=== PATIENT | male | born 1970 | race Caucasian/White ===

== ENCOUNTER 2017-12-08 21:25 | Emergency (ER) | payer MEDICARE ==
[2017-12-08] MEDS ORDERED: Rocephin 1000 MG INJ ONE (22:20)
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
[2017-12-08] MEDS ORDERED: BACIGUENT PACKET ONE (22:26)
[2017-12-08 22:42] VITALS: BP 159/111
[2017-12-08] MEDS ORDERED: Rocephin 1000 MG INJ IM ONE (22:49)
[2017-12-09] MEDS ORDERED: BACIGUENT PACKET TP ONE (06:27)
== END 2017-12-08 22:44 | disposition home or self-care (01) ==
LOC: ED 21:25
DX: S91.115A Laceration without foreign body of left lesser toe(s) without damage to nail, initial encounter (principal); W26.8XXA Contact with other sharp object(s), not elsewhere classified, initial encounter; G82.50 Quadriplegia, unspecified; Z79.899 Other long term (current) drug therapy
CPT/HCPCS: 96372; 99283; J0696; A9270-GY

== ENCOUNTER 2018-04-05 16:13 | Emergency (ER) | payer MEDICARE ==
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
[2018-04-05 16:23] VITALS: O2SAT 95
[2018-04-05] MEDS ORDERED: BACIGUENT PACKET TP ONE (16:27)
[2018-04-05] MEDS ORDERED: BACIGUENT PACKET ONE (16:44)
[2018-04-05 16:59] VITALS: BP 125/62; PULSE 76
== END 2018-04-05 16:59 | disposition home or self-care (01) ==
LOC: ED 16:13
DX: S91.011A Laceration without foreign body, right ankle, initial encounter (principal); W26.9XXA Contact with unspecified sharp object(s), initial encounter; Y93.9 Activity, unspecified; Y92.818 Other transport vehicle as the place of occurrence of the external cause; Z79.899 Other long term (current) drug therapy; G83.9 Paralytic syndrome, unspecified
CPT/HCPCS: 12005; 96365; 99283; A9270-GY; G0463

== ENCOUNTER 2018-06-24 23:12 | Emergency (ER) | payer MEDICARE ==
[2018-06-24] MEDS ORDERED: BACIGUENT PACKET ONE (23:37)
[2018-06-24] MEDS: BACIGUENT PACKET TP ONE (23:41)
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
[2018-06-25 00:50] VITALS: BP 172/98; PULSE 73; O2SAT 99
--- NOTE | 2018-06-25 09:03 | XRAY ---
Indication: Pain following injury. Comparison: None 3 nonweightbearing views of the left foot demonstrates diffuse soft tissue swelling/edema, marked osteopenia, moderate heel spurs, old 2nd/3rd metatarsal head fracture deformities, and moderate degenerative changes of the midfoot. No acute fracture, dislocation, or suspicious bony lesions.
== END 2018-06-25 00:51 | disposition home or self-care (01) ==
LOC: ED 23:12
DX: S91.115A Laceration without foreign body of left lesser toe(s) without damage to nail, initial encounter (principal); S91.205A Unspecified open wound of left lesser toe(s) with damage to nail, initial encounter; W22.8XXA Striking against or struck by other objects, initial encounter; G83.9 Paralytic syndrome, unspecified; Z79.899 Other long term (current) drug therapy
CPT/HCPCS: 73630; 99284; A9270-GY

== ENCOUNTER 2020-09-06 19:24 | Emergency (ER) | payer MEDICARE ==
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
[2020-09-06 21:27] VITALS: BP 138/77
[2020-09-06 22:57] VITALS: PULSE 56; O2SAT 95
--- NOTE | 2020-09-07 08:27 | XRAY ---
Indication: 1st/2nd toe laceration. Comparison: April 15, 2020. 3 portable nonweightbearing views right foot demonstrates new 1st/2nd toe soft tissue swelling/laceration with overlying bandage material. Stable osteopenia, moderate tarsometatarsal degenerative changes, old distal forefoot fracture deformities, plantar heel spur, and navicular accessory ossicle. No other bony, articular, or soft tissue abnormalities.
[2020-09-07] MEDS ORDERED: Cyclobenzaprine 10 MG PO ONE (09:00)
[2020-09-07] MEDS ORDERED: SYNTHROID 25 MCG PO ONE (09:00)
[2020-09-07] MEDS ORDERED: LIORESAL 10 MG PO ONE (09:00)
== END 2020-09-06 23:11 | disposition home or self-care (01) ==
LOC: ED 19:24
DX: S91.119A Laceration without foreign body of unspecified toe without damage to nail, initial encounter (principal); S92.911A Unspecified fracture of right toe(s), initial encounter for closed fracture; W22.8XXA Striking against or struck by other objects, initial encounter; Z79.899 Other long term (current) drug therapy
CPT/HCPCS: 12001; 73630; 99284; A9270-GY

== ENCOUNTER 2021-04-30 16:37 | Emergency (ER) | payer MEDICARE ==
[2021-04-30] MEDS ORDERED: Rocephin 1000 MG INJ IM ONE (17:55)
[2021-04-30] MEDS ORDERED: Rocephin 1000 MG INJ ONE (17:59)
[2021-04-30] MEDS ORDERED: XYLOCAINE 1% HCL 20 ML MDV ONE (17:59)
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
[2021-04-30 18:33] VITALS: BP 155/70; PULSE 68; O2SAT 97
== END 2021-04-30 19:03 | disposition home or self-care (01) ==
LOC: ED 16:37
DX: S50.861A Insect bite (nonvenomous) of right forearm, initial encounter (principal); L08.9 Local infection of the skin and subcutaneous tissue, unspecified; W57.XXXA Bitten or stung by nonvenomous insect and other nonvenomous arthropods, initial encounter
CPT/HCPCS: 96372; 99283; J0696

== ENCOUNTER 2022-11-17 17:54 | Emergency (ER) | payer MEDICARE ==
[2022-11-17] MEDS ORDERED: Zofran 4 MG/2 ML VIAL IV ONE (18:56)
[2022-11-17] MEDS ORDERED: Sodium Chloride 0.9% 1000 ML 1,000 ML IV STA ×2 (18:56→21:03)
[2022-11-17 19:11] LABS: Absolute Neutrophil Ct (ANC) 12.24 x10^3/uL (1.4-6.9); BASOPHIL % 0.1 % (0.0-0.4); Basophil (Absolute #) 0.01 x10^3/uL (0-0.4); Eosinophil % 0.1 % (0.00-5.0); Eosinophil (Absolute #) 0.01 x10^3/uL (0-0.5); Hematocrit 40.8 % (42-50); Hemoglobin 12.7 g/dL (12.5-18.0); IMMATURE GRAN # 0.04 x10^3u/L (0.00-0.03); IMMATURE GRAN % 0.3 % (0.00-0.4); Lymphocyte (Absolute #) 0.92 x10^3/uL (1.0-4.6); Lymphocytes % 6.7 % (24.0-44.0); Mean Cell Volume 93.8 fL (78-100); Mean Corpuscular Hemoglobin 29.2 pg (26-32); Mean Corpuscular Hgb Concent. 31.1 g/dL (32-36); Mean Platelet Volume 10.7 fL (7.5-11.0); Monocyte (Absolute #) 0.47 x10^3/uL (0.0-1.3); Monocytes % 3.4 % (0.0-12.0); Neutrophil % 89.4 % (36.0-66.0); Platelet Count 238 x10^3/uL (150-450); Red Blood Count 4.35 x10^6/uL (4.1-5.6); Red Cell Distribution Width 13.6 % (11.5-14.0); White Blood Count 13.7 x10^3/uL (4.0-10.5)
[2022-11-17 19:25] LABS: ALBUMIN 3.6 g/dL (3.5-5.0); ALKALINE PHOSPHATASE 87 U/L (38-126); AMYLASE 67 U/L (30-110); ANION GAP 14.5 MEQ/L (5-15); BLOOD UREA NITROGEN 21 mg/dL (9-20); CHLORIDE 103 mmol/L (98-107); Calcium 8.4 mg/dL (8.4-10.2); Carbon Dioxide 27 mmol/L (22-30); Creatinine 1 0.59 mg/dL (0.66-1.25); EST GLOMERULAR FILTRATION RATE > 60.0 ML/MIN; Glucose 172 mg/dL (74-106); LIPASE 37 U/L (23-300); Potassium 3.5 mmol/L (3.5-5.1); SGOT/AST 23 U/L (17-59); SGPT/ALT 28 U/L (0-50); SODIUM 141 mmol/L (137-145); Total Protein 7.5 g/dL (6.3-8.2)
[2022-11-17] MEDS ORDERED: Zofran 4 MG/2 ML VIAL ONE (19:35)
[2022-11-17] MEDS ORDERED: Sodium Chloride 0.9% 1000 ML 1,000 ML ONE ×2 (19:36→21:14)
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
--- NOTE | 2022-11-17 21:01 | XRAY ---
CLINICAL HISTORY:Vomiting and nausea. COMPARISON:Prior CT dated 09/01/2013. TECHNIQUES:CT scan of the abdomen and pelvis was performed without IV contrast. No oral contrast. Coronal and sagittal reconstructive images were also obtained. CTDI 18.53 mGy, DLP 1013.49 mGycm; FINDINGS: Scan through the lower chest reveals partial atelectasis in left lung base and a 3.5 mm nodule in the right lung base. Abdomen. Hepatomegaly, measuring 19 cm at the largest craniocaudal span in the right lobe. No focal or diffuse parenchymal abnormality. The portal vein, intrahepatic biliary radicals and the bile ducts are normal. The gallbladder is distended and shows calcified stone measuring 1.3 cm. There is no evidence of wall thickening/ pericholecystic collection. The spleen, pancreas, and adrenal glands are unremarkable. The kidneys are normal in size and shape. No calculi or hydronephrosis. The stomach, the small bowel loops are markedly air-distended And dilated. The maximum caliber of the small bowel loops is up to 4.5-5 cm. The distal ileal loops show normal caliber with a transition point between the dilated small bowel loops difficult to ascertain. The large bowel loops are also filled with air and fecal matter which are normal caliber. No evidence of free air. There is no evidence of significant enlargement of the mesenteric or retroperitoneal lymph nodes. Small amount of free fluid at the perisplenic area. Pelvis. The urinary bladder shows urinary catheter. Reproductive organs unremarkable. therosclerotic calcification of the aorta and major abdominal arteries seen. No evidence of pelvic lymphadenopathy. No definite bony abnormalities could be depicted. Degenerative changes in the visualized spine, with marginal osteophytes. IMPRESSION: Acute or subacute small bowel obstruction with transition point between the proximal and distal ileal loops. Normal ileocecal junction. No appendicitis. Air and fecal matter filled large bowel loops with no large bowel dilatation. Pneumatosis intestinalis. Small amount of free fluid at left upper quadrant. Hepatomegaly. Left partial atelectasis and right lung nodule. Further evaluation with chest CT recommended. Prior CT dated 09/01/2013 did not show bowel obstruction. Spoke with Chrissy at 7:42 PM PAPER SALES REPRESENTATIVE, 11/17/2022 and results were communicated about the significant findings. Electronically Signed by: Esther Lee MD. ( 11/17/2022 19:53:02 [facility])
[2022-11-17] MEDS ORDERED: Reglan 10 MG/2 ML IV ONE (21:02)
[2022-11-17] MEDS ORDERED: LEVOFLOXACIN 750MG/150ML D5W 750 MG/150 ML BAG IV STA (21:13)
[2022-11-17] MEDS ORDERED: FLAGYL 500 MG IVPB 500 MG/100 ML BAG IV STA (21:13)
[2022-11-17] MEDS ORDERED: Reglan 10 MG/2 ML ONE (21:14)
[2022-11-17] MEDS ORDERED: FLAGYL 500 MG IVPB 500 MG/100 ML BAG IV ONE (21:26)
[2022-11-17] MEDS ORDERED: LEVOFLOXACIN 750MG/150ML D5W 750 MG/150 ML BAG IV ONE (21:27)
[2022-11-17 21:48] LABS: Appearance Turbid (Clear); Bacteria Many /HPF (None Seen); Bilirubin Negative (Negative); Blood Negative (Negative); Epithelial Cells None Seen /HPF (None Seen); Glucose, Urine Negative (Negative); Ketones Negative (Negative); Leukocyte Esterase Large (Negative); Nitrite Positive (Negative); Ph >=9.0 (4.6-8.0); Protein,Urine Dip 100 (Negative); Specific Gravity 1.025 (1.005-1.030); WBC 21-50 /HPF (0-5)
[2022-11-17 21:49] LABS: ADD URINE CULTURE? YES (NO); Hyaline Casts 26-50 /LPF (0-2)
[2022-11-18] MEDS ORDERED: Zofran 4 MG/2 ML VIAL IV ONE (02:07)
[2022-11-18] MEDS ORDERED: Zofran 4 MG/2 ML VIAL ONE (02:09)
[2022-11-18] MEDS ORDERED: SODIUM CHLORIDE 0.9% IV ONE (02:32)
[2022-11-18] MEDS ORDERED: THORAZINE IV ONE (02:32)
[2022-11-18] MEDS ORDERED: BENADRYL 50 MG/ML IV ONE (02:35)
[2022-11-18] MEDS ORDERED: THORAZINE 50 MG ONE (02:58)
[2022-11-18] MEDS ORDERED: Sodium Chloride 0.9% 100 ML ONE (02:58)
[2022-11-18] MEDS ORDERED: BENADRYL 50 MG/ML ONE (02:58)
[2022-11-18 03:19] VITALS: BP 118/70
[2022-11-18 04:47] VITALS: PULSE 71; O2SAT 97
== END 2022-11-18 05:00 | disposition short-term general hospital (02) ==
LOC: ED 17:54
DX: K56.609 Unspecified intestinal obstruction, unspecified as to partial versus complete obstruction (principal); N39.0 Urinary tract infection, site not specified; R11.2 Nausea with vomiting, unspecified; R10.9 Unspecified abdominal pain; R53.1 Weakness; G82.20 Paraplegia, unspecified; T14.8XXS Other injury of unspecified body region, sequela; V89.2XXS Person injured in unspecified motor-vehicle accident, traffic, sequela; I10 Essential (primary) hypertension; Z79.899 Other long term (current) drug therapy; Z28.310 Unvaccinated for COVID-19; Z72.0 Tobacco use
CPT/HCPCS: 36000; 36415; 74176; 80053; 81001; 82150; 83605; 83690; 84484; 85025; 87086; 96360; 96365; 96367; 96374; 96375; 96376; 99285; J1200; J1956; J2405; J3230

== ENCOUNTER 2024-04-23 04:13 | Observation (INO) | payer MEDICARE ==
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
[2024-04-23 05:47] LABS: Absolute Neutrophil Ct (ANC) 6.15 x10^3/uL (1.78-5.38); BASOPHIL % 0.6 % (0.2-1.2); Basophil (Absolute #) 0.06 x10^3/uL (0.01-0.08); Eosinophil % 4.6 % (0.8-7.0); Eosinophil (Absolute #) 0.45 x10^3/uL (0.04-0.54); Hemoglobin 14.6 g/dL (13.7-17.5); IMMATURE GRAN # 0.03 x10^3u/L (0.001-0.031); IMMATURE GRAN % 0.3 % (0.001-0.429); Lymphocyte (Absolute #) 2.52 x10^3/uL (1.32-3.57); Lymphocytes % 25.5 % (21.8-53.1); Mean Cell Volume 86.5 fL (79.0-92.2); Mean Corpuscular Hemoglobin 27.4 pg (25.7-32.2); Mean Corpuscular Hgb Concent. 31.7 g/dL (32.3-36.5); Mean Platelet Volume 10.6 fL (9.4-12.4); Monocyte (Absolute #) 0.66 x10^3/uL (0.30-0.82); Monocytes % 6.7 % (5.3-12.2); Neutrophil % 62.3 % (34.0-67.9); Platelet Count 270 x10^3/uL (163-337); Red Blood Count 5.32 x10^6/uL (4.63-6.08); Red Cell Distribution Width 14.5 % (11.6-14.4); White Blood Count 9.9 x10^3/uL (4.23-9.07)
[2024-04-23 05:59] LABS: ALBUMIN 4.4 g/dL (3.5-5.0); BILIRUBIN,TOTAL 0.7 mg/dL (0.2-1.3); Calcium 9.5 mg/dL (8.4-10.2); Creatinine 1 1.06 mg/dL (0.66-1.25); EST GLOMERULAR FILTRATION RATE 82.9 ML/MIN; Total Protein 8.4 g/dL (6.3-8.2)
[2024-04-23 06:01] LABS: Potassium 4.2 mmol/L (3.5-5.1)
[2024-04-23 06:21] LABS: Appearance Turbid (Clear); Bacteria Many /HPF (None Seen); Bilirubin Negative (Negative); Blood Small (Negative); Epithelial Cells Rare /HPF (None Seen); Glucose, Urine Negative (Negative); Ketones Negative (Negative); Leukocyte Esterase Large (Negative); Nitrite Positive (Negative); Ph 7.5 (4.6-8.0); Protein,Urine Dip 100 (Negative); Specific Gravity 1.015 (1.005-1.030); Urobilinogen 0.2 mg/dL (0.2); WBC >100 /HPF (0-5)
[2024-04-23] MEDS ORDERED: Levofloxacin 500MG/100ML D5W 500 MG/100 ML BAG IV ONE (07:17)
[2024-04-23] MEDS ORDERED: Sodium Chloride 0.9% 1000 ML 1,000 ML ONE (07:17)
[2024-04-23] MEDS: Sodium Chloride 0.9% 1000 ML 1,000 ML IV STA (07:18)
[2024-04-23] MEDS: Levofloxacin 500MG/100ML D5W 500 MG/100 ML BAG IV STA (08:14)
[2024-04-23 08:20] LABS: INFLUENZA A NEGATIVE (NEGATIVE); INFLUENZA B NEGATIVE (NEGATIVE); RESPIRATORY SYNCTIAL VIRUS NEGATIVE (NEGATIVE); SARS-CoV-2 Xpert Express NEGATIVE (NEGATIVE)
[2024-04-23 09:08] VITALS: RESP 18
[2024-04-23] MEDS: Levofloxacin 250MG Tablet PO SCH (10:53)
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
[2024-04-23] MEDS ORDERED: TYLENOL 325 MG PO PRN (11:50)
[2024-04-23] MEDS ORDERED: PROVENTIL 2.5 MG/3 ML NEB IH PRN (11:50)
[2024-04-23] MEDS ORDERED: Cyclobenzaprine 10 MG PO PRN (11:50)
[2024-04-23] MEDS ORDERED: Valium 5 MG PO PRN (11:50)
[2024-04-23] MEDS: Acidophilus TABLET PO SCH (13:19)
[2024-04-23] MEDS: Protonix 40MG Tablet PO SCH (13:19)
[2024-04-23] MEDS: SYNTHROID 25 MCG PO SCH (13:20)
[2024-04-23] MEDS: Miralax Powder 17GM PACKET PO SCH (13:20)
[2024-04-23] MEDS: Klor Con PO SCH (13:20)
[2024-04-23] MEDS: SENOKOT 8.6 MG PO SCH (13:20)
[2024-04-23] MEDS: ZOLOFT 50 MG TABLET PO SCH (13:20)
[2024-04-23] MEDS: FOLATE 1 MG PO SCH (13:20)
[2024-04-23] MEDS: Zinc Gluconate 50 MG PO SCH (14:00)
[2024-04-23] MEDS: Mirapex 0.5 MG Tablet PO SCH (14:00)
[2024-04-23] MEDS ORDERED: NON-FORMULARY ITEM (Pramipexole Di-Hcl [Pramipexole Dihydrochloride] 1 MG Tablet) PO SCH (15:00)
[2024-04-23] MEDS: LIORESAL 10 MG PO SCH (16:19)
[2024-04-23 16:58] VITALS: BP 119/67; PULSE 72; TEMP 98.6; O2SAT 94
[2024-04-23] MEDS ORDERED: ACIDOPHILUS PO SCH (22:00)
[2024-04-23] MEDS ORDERED: Pepcid 20 MG PO SCH (22:00)
[2024-04-23] MEDS ORDERED: BULGARICUS PO SCH (22:00)
[2024-04-23] MEDS ORDERED: NON-FORMULARY ITEM (Baclofen [Baclofen] 20 MG Tablet) PO SCH ×2 (22:00)
[2024-04-23] MEDS ORDERED: LIORESAL 10 MG PO SCH (22:00)
[2024-04-24] MEDS ORDERED: Lopressor 25MG Tab PO SCH (10:00)
[2024-04-24] MEDS ORDERED: CLARITIN 10 MG PO SCH (10:00)
[2024-04-24] MEDS ORDERED: ZINC AMINO ACID CHELATE PO SCH (10:00)
[2024-04-24] MEDS ORDERED: [UNRECOGNIZED DRUG - REMARK] PO SCH (10:00)
[2024-04-24] MEDS ORDERED: NYSTOP POWDER 15 GM TOP SCH (10:00)
[2024-04-24] MEDS ORDERED: SENNOSIDES 8.6 MG PO SCH (10:00)
[2024-04-24] MEDS ORDERED: NON-FORMULARY ITEM (Sertraline Hcl [Sertraline Hcl] 100 MG Tablet) PO SCH (10:00)
== END 2024-04-23 17:25 ==
LOC: ED 04:13 → MED SURG 08:25
PROVIDERS: ADMIT Internal Medicine; ATTEND Internal Medicine
DX: N39.0 Urinary tract infection, site not specified (principal); L89.153 Pressure ulcer of sacral region, stage 3; I10 Essential (primary) hypertension; Z86.73 Personal history of transient ischemic attack (TIA), and cerebral infarction without residual deficits; R53.1 Weakness; G82.20 Paraplegia, unspecified; F17.200 Nicotine dependence, unspecified, uncomplicated; Z93.3 Colostomy status; Z79.899 Other long term (current) drug therapy
CPT/HCPCS: 0241U; 36000; 36415; 51702; 80053; 81001; 83605; 85025; 87040; 87086; 93005; 93041; 94760; 96360; 93268; 99284; J1956; Q3014; A9270-GY; G0378

== ENCOUNTER 2024-05-09 18:49 | Emergency (ER) | payer MEDICARE ==
[2024-05-09 18:56] VITALS: TEMP 98.4
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
[2024-05-09] MEDS ORDERED: Sodium Chloride 0.9% 500 ML 500 ML IV ONE (20:09)
[2024-05-09] MEDS: Sodium Chloride 0.9% 500 ML 500 ML IV ONE (20:11)
[2024-05-09] MEDS ORDERED: VENELEX OINTMENT TP SCH ×4 (20:32→22:00)
[2024-05-09 21:22] VITALS: O2SAT 94
[2024-05-09 23:33] VITALS: BP 88/57; PULSE 56; RESP 18
[2024-05-10] MEDS ORDERED: Santyl OINTMENT TOP SCH (10:00)
== END 2024-05-09 23:30 | disposition home or self-care (01) ==
LOC: ED 18:49
DX: L89.152 Pressure ulcer of sacral region, stage 2 (principal); G82.20 Paraplegia, unspecified; S14.105S Unspecified injury at C5 level of cervical spinal cord, sequela; I10 Essential (primary) hypertension; Z79.899 Other long term (current) drug therapy; Z72.0 Tobacco use
CPT/HCPCS: 99283; A9270-GY

== ENCOUNTER 2024-08-14 03:01 | Inpatient (IN) | payer MEDICARE ==
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
[2024-08-14] MEDS ORDERED: DUONEB 0.5-3 MG/3 ml Neb IH ONE ×2 (04:28→07:07)
[2024-08-14] MEDS: DUONEB 0.5-3 MG/3 ml Neb IH ONE ×2 (04:32→07:08)
[2024-08-14] MEDS: solu-MEDROL 125 MG, Sterile H2O 10 ml 2 ML IV ONE (04:38)
[2024-08-14 04:55] LABS: Absolute Neutrophil Ct (ANC) 3.37 x10^3/uL (1.78-5.38); BASOPHIL % 0.3 % (0.2-1.2); Basophil (Absolute #) 0.02 x10^3/uL (0.01-0.08); Eosinophil % 1.5 % (0.8-7.0); Hematocrit 39.1 % (40.1-51.0); Hemoglobin 12.8 g/dL (13.7-17.5); IMMATURE GRAN # 0.02 x10^3u/L (0.001-0.031); IMMATURE GRAN % 0.3 % (0.001-0.429); Lymphocyte (Absolute #) 2.65 x10^3/uL (1.32-3.57); Lymphocytes % 39.7 % (21.8-53.1); Mean Cell Volume 86.3 fL (79.0-92.2); Mean Corpuscular Hemoglobin 28.3 pg (25.7-32.2); Mean Corpuscular Hgb Concent. 32.7 g/dL (32.3-36.5); Monocyte (Absolute #) 0.52 x10^3/uL (0.30-0.82); Monocytes % 7.8 % (5.3-12.2); Neutrophil % 50.4 % (34.0-67.9); Platelet Count 222 x10^3/uL (163-337); Red Blood Count 4.53 x10^6/uL (4.63-6.08); Red Cell Distribution Width 14.1 % (11.6-14.4); White Blood Count 6.7 x10^3/uL (4.23-9.07)
[2024-08-14 05:17] LABS: Appearance Clear (Clear); Bilirubin Negative (Negative); Blood Small (Negative); Glucose, Urine Negative (Negative); Ketones Negative (Negative); Leukocyte Esterase Large (Negative); Nitrite Negative (Negative); Ph 6.5 (4.6-8.0); Protein,Urine Dip Negative (Negative); Urobilinogen 0.2 mg/dL (0.2)
[2024-08-14 05:17] LABS: ALBUMIN 4.2 g/dL (3.5-5.0); ANION GAP 13.1 MEQ/L (5-15); BILIRUBIN,TOTAL 0.6 mg/dL (0.2-1.3); Calcium 8.7 mg/dL (8.4-10.2); Creatinine 1 0.8 mg/dL (0.66-1.25); EST GLOMERULAR FILTRATION RATE 103.9 ML/MIN; Potassium 3.7 mmol/L (3.5-5.1); Total Protein 7.8 g/dL (6.3-8.2)
[2024-08-14 05:18] LABS: Bacteria Few /HPF (None Seen); Epithelial Cells Few /HPF (None Seen); Hyaline Casts None Seen /LPF (0-2)
[2024-08-14 05:33] LABS: INFLUENZA A NEGATIVE (NEGATIVE); INFLUENZA B NEGATIVE (NEGATIVE); RESPIRATORY SYNCTIAL VIRUS NEGATIVE (NEGATIVE); SARS-CoV-2 Xpert Express NEGATIVE (NEGATIVE)
[2024-08-14] MEDS ORDERED: Cipro 500 MG ONE (05:55)
[2024-08-14] MEDS: Cipro 500 MG PO STA (05:57)
--- NOTE | 2024-08-14 06:34 | XRAY ---
CLINICAL HISTORY: sob COMPARISON: CT abdomen and pelvis dated 11/17/2022 was reviewed for covered lung bases. TECHNIQUE: An X-ray image of the chest is obtained using an 1 AP projection. FINDINGS: Rotated projection. Pulmonary Parenchyma: Mild prominence of perihilar broncho-vascular markings. There is no evidence of consolidation, collapse, or focal opacities. No pulmonary nodules are identified. There is no evidence of pleural effusion on the right side. Blunting of the left costophrenic angle may represent pleural thickening or a small pleural effusion. Heart and Mediastinum: Enlarged heart. No mediastinal widening or masses. No hilar or mediastinal lymphadenopathy. Bony Thorax: The bony thorax appears intact without fractures. Degenerative changes in the visualized spine. Soft Tissues: Soft tissues overlying the chest wall are unremarkable. A metallic spinal fixator is seen, projected over the cervical spine. Tubing artifacts noted. IMPRESSION: 1. Enlarged heart. 2. Mild prominence of perihilar broncho-vascular markings probably due to pulmonary vascular congestion. 3. Blunting of the left costophrenic angle may represent pleural thickening or a small pleural effusion. 4. Calcified granuloma in the right mid zone(stable). Electronically Signed by: Esther Lee MD. (08/14/2024 06:30:07 EST)
[2024-08-14 06:35] LABS: A-aADO2 174; ABG HEMOGLOBIN 12.8; ABG POTASSIUM 3.8 (3.5-5.1); ABG SITE LEFT RADIAL; ALLEN TEST OK? YES; ARTERIAL BLD GAS O2 SATURATION 97.9 % (95-100); ARTERIAL BLOOD GAS BASE EXCESS 4.5 (-2.0-2.0); ARTERIAL BLOOD GAS FIO2 44 %; ARTERIAL BLOOD GAS PCO2 43 mmHg (35-45); ARTERIAL BLOOD GAS PO2 86 mmHg (75-100); ARTERIAL BLOOD GAS pH 7.44 (7.35-7.45); CARBOXYHEMOGLOBIN 0.9 % THgb (0.0-6.9); HCO3- 29.2 (22-28); HGB O2 SAT 96.4 g/dF (94-100); Methhemoglobin 0.6 % (1.4-1.5); paO2 pAO1 0.33
--- NOTE | 2024-08-14 09:16 | PCM.HP ---
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 (40.1-51.0) % MCV (79.0-92.2) fL MCH (25.7-32.2) pg MCHC (32.3-36.5) g/dL RDW (11.6-14.4) % Plt Count (163-337) x10^3/uL MPV (9.4-12.4) fL Gran % (34.0-67.9) % Immature Gran % (Auto) (0.001-0.429) % Nucleat RBC Rel Count (0.00-0.2) % Eos # (Auto) (0.04-0.54) x10^3/uL Immature Gran # (Auto) (0.001-0.031) x10^3u/L Absolute Lymphs (auto) (1.32-3.57) x10^3/uL Absolute Monos (auto) (0.30-0.82) x10^3/uL Absolute Nucleated RBC (0.00-0.012) x10^3u/L Lymphocytes % (21.8-53.1) % Monocytes % (5.3-12.2) % Eosinophils % (0.8-7.0) % Basophils % (0.2-1.2) % Absolute Granulocytes (1.78-5.38) x10^3/uL Basophils # (0.01-0.08) x10^3/uL Puncture Site LEFT RADIAL pCO2 43 (35-45) mmHg pO2 86 (75-100) mmHg Base Excess 4.5 H (-2.0-2.0) O2 Saturation 96.4 (94-100) g/dF ABG pH 7.44 (7.35-7.45) ABG HCO3 29.2 H* (22-28) ABG O2 Sat (Measured) 97.9 (95-100) % Stephan Test YES A-a Gradient 174 a/A Ratio 0.33 Hemoglobin 12.8 Carboxyhemoglobin 0.9 (0.0-6.9) % THgb Methemoglobin 0.6 L (1.4-1.5) % Temperature 37.0 C POC O2 Flow Rate 44 % Sodium (135-145) mmol/L Potassium 3.8 (3.5-5.1) mmol/L Chloride (98-107) mmol/L Carbon Dioxide (22-30) mmol/L Anion Gap (5-15) MEQ/L BUN (9-20) mg/dL Creatinine (0.66-1.25) mg/dL Estimated GFR ML/MIN Glucose (74-106) mg/dL Calcium (8.4-10.2) mg/dL Total Bilirubin (0.2-1.3) mg/dL AST (17-59) U/L ALT (0-50) U/L Alkaline Phosphatase (38-126) U/L Troponin I 0.027 0.015 (0.000-0.033) ng/mL NT-Pro-B Natriuret Pep (<300) pg/mL Serum Total Protein (6.3-8.2) g/dL Albumin (3.5-5.0) g/dL Procalcitonin (0.030-0.080) ng/mL Urine Color (Yellow) Urine Appearance (Clear) Urine pH (4.6-8.0) Ur Specific Bulan (1.005-1.030) Urine Protein (Negative) Urine Glucose (UA) (Negative) mg/dL Urine Ketones (Negative) Urine Blood (Negative) Urine Nitrite (Negative) Urine Bilirubin (Negative) Urine Urobilinogen (0.2) mg/dL Ur Leukocyte Esterase (Negative) U Hyaline Cast (Auto) (0-2) /LPF Urine Microscopic RBC (0-5) /HPF Urine Microscopic WBC (0-5) /HPF Ur Epithelial Cells (None Seen) /HPF Urine Bacteria (None Seen) /HPF Urine Culture Reflexed (NO) Influenza Type A Ag (NEGATIVE) Influenza Type B Ag (NEGATIVE) RSV (PCR) (NEGATIVE) SARS-CoV-2 (PCR) (NEGATIVE) - Radiology Impressions Radiology Exams & Impressions: Radiology Procedures Category Date Time Status CHEST 1 VIEW (PORTABLE) Stat Exams 08/14/24 04:19 Completed CHEST WITH CONTRAST [CT] Routine Exams 08/14/24 09:49 Completed ECHO W/2D AND DOPPLER [US] Routine Exams 08/14/24 09:54 Taken - Other Procedures and Tests Respiratory Therapy 08/14/24 10:58 Oxygen NASAL CANNULA 2 lpm Respiratory Therapy Assessment DAILY 08/14/24 19:00 Flutter Therapy TID WILLIAM Encounter - WILLIAM Encounter Attestation WILLIAM Encounter Attestation: "AnupeenIAN Gordillo andjerryiscussed pertinent aspects of their care with Beronica Cosme agree with the history, physical exam (any modifications based on my personal exam will be noted below), assessment, and plan as outlined in original note. Please see immediately below for my summary of findings and additional assessment and plan along with any meaningful corrections/explanations to the Subjective/Objective portions of the WILLIAM note will be noted." My portion of the encounter took place via telemedicine. -Acute respiratory failure with hypoxia likely due to mucus plugging with a possible component of CHF given cardiomegaly, meth use and elevated BNP. Await echo. Given lasix 40 mg IV x 1. Continue oxygen support, nebs. Avoid suctioning through the stoma as patient has a follow up with ENT next month with plans for closing. I do not think patient has a UTI with no elevation of WBC, absence of bladder spasms or leakage around the SP catheter, clean appearing urine in the cath. Will monitor off of antibiotics for now.
[2024-08-14] MEDS ORDERED: Zofran 4 MG/2 ML VIAL IV PRN (10:20)
[2024-08-14] MEDS ORDERED: TYLENOL 325 MG PO PRN (10:20)
[2024-08-14] MEDS: Nicoderm CQ 21 MG TOP SCH (12:12)
[2024-08-14] MEDS: solu-MEDROL 40 MG, Sterile H2O 10 ml 1 ML IV SCH (12:13)
[2024-08-14] MEDS: Lasix 40 MG/4 ML IV ONE (12:13)
--- NOTE | 2024-08-14 12:53 | XRAY ---
Indication: Dyspnea. Multiple contiguous axial images obtained through the chest using 100 cc Isovue 370 contrast and PE protocol. Comparison: None Good opacification pulmonary arteries to include the lobar and segmental branches. No pulmonary embolus. Heart borderline enlarged. Aorta is normal in course and caliber without aneurysm/dissection. Small left hilar calcified node. No pathologic mediastinal/hilar lymphadenopathy. Lungs demonstrates medial and posterior segment left lower lobe atelectasis due to endobronchial narrowing. Right lung base demonstrates dependent atelectasis. Tiny peripheral right upper lobe calcified granuloma. No infiltrate or effusion. Bony thorax intact with mild degenerative changes throughout spine and old lateral left 7 rib fracture. Limited upper abdomen demonstrates fatty liver and 3 gallstones largest 6 mm. Impression: 1. Negative pulmonary embolus. 2. Posterior medial left lower lobe atelectasis due to endobronchial narrowing. Rule out endobronchial lesion versus mucous plugging. Right lung base dependent atelectasis. 3. Chronic findings including fatty liver, chronic bony findings, gallstones, and old granulomatous disease.
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
[2024-08-14] MEDS ORDERED: Cyclobenzaprine 10 MG PO PRN (14:06)
[2024-08-14] MEDS: LIORESAL 10 MG PO ONE (15:18)
[2024-08-14] MEDS: ENOXAPARIN SODIUM SQ SCH (15:46)
[2024-08-14] MEDS: DUONEB 0.5-3 MG/3 ml Neb IH PRN (16:38)
[2024-08-14] MEDS: Mucomyst 200 MG/ML IH SCH (17:18)
[2024-08-14] MEDS: NYSTOP 30 GM CREAM TP SCH (18:19)
[2024-08-14] MEDS: LIORESAL 10 MG PO SCH (21:29)
[2024-08-14] MEDS: Pepcid 20 MG PO SCH (21:29)
[2024-08-14] MEDS: ELIQUIS 2.5 MG TABLET PO SCH (21:29)
[2024-08-14] MEDS ORDERED: SENOKOT 8.6 MG ONE (21:37)
[2024-08-14] MEDS: SENOKOT 8.6 MG PO SCH (21:40)
[2024-08-14] MEDS ORDERED: NON-FORMULARY ITEM (Baclofen [Baclofen] 20 MG Tablet) PO SCH ×2 (22:00)
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
[2024-08-15 05:13] LABS: BASOPHIL % 0.1 % (0.2-1.2); Basophil (Absolute #) 0.01 x10^3/uL (0.01-0.08); Eosinophil % 0.2 % (0.8-7.0); Eosinophil (Absolute #) 0.02 x10^3/uL (0.04-0.54); Hematocrit 35.2 % (40.1-51.0); Hemoglobin 11.4 g/dL (13.7-17.5); IMMATURE GRAN # 0.06 x10^3u/L (0.001-0.031); IMMATURE GRAN % 0.7 % (0.001-0.429); Lymphocyte (Absolute #) 1.37 x10^3/uL (1.32-3.57); Lymphocytes % 16.5 % (21.8-53.1); Mean Cell Volume 86.1 fL (79.0-92.2); Mean Corpuscular Hemoglobin 27.9 pg (25.7-32.2); Mean Corpuscular Hgb Concent. 32.4 g/dL (32.3-36.5); Mean Platelet Volume 10.4 fL (9.4-12.4); Monocyte (Absolute #) 0.42 x10^3/uL (0.30-0.82); Monocytes % 5.1 % (5.3-12.2); Neutrophil % 77.4 % (34.0-67.9); Platelet Count 259 x10^3/uL (163-337); Red Blood Count 4.09 x10^6/uL (4.63-6.08); Red Cell Distribution Width 14.2 % (11.6-14.4); White Blood Count 8.3 x10^3/uL (4.23-9.07)
[2024-08-15 05:37] LABS: ALBUMIN 3.7 g/dL (3.5-5.0); BILIRUBIN,TOTAL 0.4 mg/dL (0.2-1.3); Calcium 8.6 mg/dL (8.4-10.2); Creatinine 1 0.81 mg/dL (0.66-1.25); EST GLOMERULAR FILTRATION RATE 103.5 ML/MIN; Potassium 3.6 mmol/L (3.5-5.1)
[2024-08-15] MEDS: LIORESAL 10 MG PO SCH (08:20)
[2024-08-15] MEDS: Merrem 1 GM in Sodium Chloride 100ML MINI-BAG PLUS 100 ML IV SCH (08:25)
[2024-08-15] MEDS ORDERED: SENNOSIDES 8.6 MG PO SCH (10:00)
[2024-08-15] MEDS ORDERED: NON-FORMULARY ITEM (Esomeprazole Magnesium [Esomeprazole Magnesium] 40 MG Capsule.Dr) PO SCH (10:00)
[2024-08-15] MEDS ORDERED: ZINC AMINO ACID CHELATE PO SCH (10:00)
[2024-08-15] MEDS ORDERED: NON-FORMULARY ITEM (Pramipexole Di-Hcl [Pramipexole Dihydrochloride] 1 MG Tablet) PO SCH (10:00)
[2024-08-15] MEDS ORDERED: NON-FORMULARY ITEM (Sertraline Hcl [Sertraline Hcl] 100 MG Tablet) PO SCH (10:00)
[2024-08-15] MEDS ORDERED: [UNRECOGNIZED DRUG - REMARK] PO SCH (10:00)
[2024-08-15] MEDS: FOLATE 1 MG PO SCH (11:25)
[2024-08-15] MEDS: hydroDIURIL 25 MG PO SCH (11:25)
[2024-08-15] MEDS: ZOLOFT 50 MG TABLET PO SCH (11:25)
[2024-08-15] MEDS: Protonix 40MG Tablet PO SCH (11:26)
[2024-08-15] MEDS: Mirapex 0.5 MG Tablet PO SCH (11:26)
[2024-08-15] MEDS: Klor Con PO SCH (11:27)
[2024-08-15] MEDS: CLARITIN 10 MG PO SCH (11:27)
[2024-08-15] MEDS: SYNTHROID 25 MCG PO SCH (11:27)
[2024-08-15] MEDS: Cymbalta 30 MG Capsule PO SCH (11:27)
[2024-08-15] MEDS: Zinc Gluconate 50 MG PO SCH (11:28)
[2024-08-15] MEDS: Zestril 20 MG PO SCH (11:42)
[2024-08-15] MEDS: NYSTOP POWDER 15 GM TOP SCH (11:54)
[2024-08-16] MEDS: PHARMACY DOSING REQUEST MC ONE (01:20)
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
[2024-08-16 07:28] LABS: Absolute Neutrophil Ct (ANC) 3.65 x10^3/uL (1.78-5.38); BASOPHIL % 0.1 % (0.2-1.2); Basophil (Absolute #) 0.01 x10^3/uL (0.01-0.08); Eosinophil % 26.8 % (0.8-7.0); Eosinophil (Absolute #) 2.36 x10^3/uL (0.04-0.54); Hematocrit 33.8 % (40.1-51.0); Hemoglobin 11.1 g/dL (13.7-17.5); IMMATURE GRAN # 0.15 x10^3u/L (0.001-0.031); IMMATURE GRAN % 1.7 % (0.001-0.429); Lymphocyte (Absolute #) 1.91 x10^3/uL (1.32-3.57); Lymphocytes % 21.7 % (21.8-53.1); Mean Cell Volume 86.2 fL (79.0-92.2); Mean Corpuscular Hemoglobin 28.3 pg (25.7-32.2); Mean Corpuscular Hgb Concent. 32.8 g/dL (32.3-36.5); Mean Platelet Volume 10.3 fL (9.4-12.4); Monocyte (Absolute #) 0.72 x10^3/uL (0.30-0.82); Monocytes % 8.2 % (5.3-12.2); Neutrophil % 41.5 % (34.0-67.9); Platelet Count 246 x10^3/uL (163-337); Red Blood Count 3.92 x10^6/uL (4.63-6.08); Red Cell Distribution Width 14.1 % (11.6-14.4); White Blood Count 8.8 x10^3/uL (4.23-9.07)
[2024-08-16 07:42] LABS: ALBUMIN 3.6 g/dL (3.5-5.0); ANION GAP 9.1 MEQ/L (5-15); BILIRUBIN,TOTAL 0.4 mg/dL (0.2-1.3); Calcium 8.9 mg/dL (8.4-10.2); Creatinine 1 0.74 mg/dL (0.66-1.25); EST GLOMERULAR FILTRATION RATE 106.3 ML/MIN; Potassium 3.8 mmol/L (3.5-5.1); Total Protein 6.8 g/dL (6.3-8.2)
[2024-08-16] MEDS: PROVENTIL 2.5 MG/3 ML NEB IH PRN (07:58)
--- NOTE | 2024-08-16 08:29 | XRAY ---
Indication: Short of breath. Comparison: August 14, 2024 Portable chest again demonstrates left lung volume loss with moderate left base infiltrate/atelectasis/effusion grossly unchanged. Remaining heart and right lung unremarkable. No new cardiopulmonary abnormalities.
[2024-08-16] MEDS: Lasix 40 MG/4 ML IV SCH (09:24)
[2024-08-16 10:25] LABS: Slide Review 1 YES
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
[2024-08-17 08:00] LABS: Absolute Neutrophil Ct (ANC) 6.18 x10^3/uL (1.78-5.38); BASOPHIL % 0.4 % (0.2-1.2); Basophil (Absolute #) 0.04 x10^3/uL (0.01-0.08); Eosinophil % 0.6 % (0.8-7.0); Eosinophil (Absolute #) 0.06 x10^3/uL (0.04-0.54); Hematocrit 37.5 % (40.1-51.0); Hemoglobin 11.4 g/dL (13.7-17.5); IMMATURE GRAN # 0.18 x10^3u/L (0.001-0.031); IMMATURE GRAN % 1.9 % (0.001-0.429); Lymphocyte (Absolute #) 2.34 x10^3/uL (1.32-3.57); Lymphocytes % 24.5 % (21.8-53.1); Mean Cell Volume 92.1 fL (79.0-92.2); Mean Corpuscular Hgb Concent. 30.4 g/dL (32.3-36.5); Monocyte (Absolute #) 0.75 x10^3/uL (0.30-0.82); Monocytes % 7.9 % (5.3-12.2); Neutrophil % 64.7 % (34.0-67.9); Platelet Count 211 x10^3/uL (163-337); Red Blood Count 4.07 x10^6/uL (4.63-6.08); White Blood Count 9.6 x10^3/uL (4.23-9.07)
[2024-08-17 09:36] LABS: ALBUMIN 3.6 g/dL (3.5-5.0); BILIRUBIN,TOTAL 0.4 mg/dL (0.2-1.3); Calcium 8.7 mg/dL (8.4-10.2); Creatinine 1 0.75 mg/dL (0.66-1.25); EST GLOMERULAR FILTRATION RATE 105.9 ML/MIN; Potassium 3.4 mmol/L (3.5-5.1); Total Protein 6.8 g/dL (6.3-8.2)
[2024-08-17 09:37] LABS: ANION GAP 9.4 MEQ/L (5-15)
[2024-08-17] MEDS: Klor Con PO ONE (10:08)
[2024-08-17] MEDS ORDERED: PHARMACY DOSING REQUIRED: VANCOMYCIN IV SCH (11:30)
[2024-08-17] MEDS ORDERED: Maxipime 2 GM** 2 G in Dextrose 5%/Water IV Soln. 100ML PLUS BAG 100 ML IV SCH (12:00)
[2024-08-17] MEDS: Maxipime 2 GM** 2 G in Dextrose 5%/Water IV Soln. 100ML PLUS BAG 100 ML IV SCH (12:32)
[2024-08-17] MEDS ORDERED: Sterile H2O 10 ml IJ ONE (14:20)
[2024-08-17] MEDS ORDERED: BENADRYL 50 MG/ML ONE (14:20)
[2024-08-17] MEDS ORDERED: solu-MEDROL ONE (14:20)
[2024-08-17] MEDS ORDERED: Pepcid 20 MG VIAL IV ONE (14:21)
[2024-08-17] MEDS ORDERED: Sodium Chloride 0.9% 500 ML 500 ML IV ONE (14:23)
[2024-08-17] MEDS: BENADRYL 50 MG/ML IV ONE (14:23)
[2024-08-17] MEDS: solu-MEDROL 20 MG, Sterile H2O 10 ml 1 ML IV STA (14:25)
[2024-08-17] MEDS: Sodium Chloride 0.9% 500 ML 500 ML IV ONE (14:34)
[2024-08-17] MEDS: Pepcid 20 MG VIAL IV ONE (14:34)
[2024-08-17] MEDS: VANCOMYCIN 1 GRAM/200 ML BAG 1 GM/200 ML PIGGYBACK IV SCH (17:04)
[2024-08-17] MEDS: PHARMACY DOSING REQUIRED: GENTAMICIN IV ONE (17:07)
[2024-08-17] MEDS: GENTAMICIN 80 MG/50 ML PREMIX*** 100 ML IV SCH (18:42)
[2024-08-17] MEDS: Klor Con PO SCH (21:25)
[2024-08-18] MEDS ORDERED: VANCOMYCIN 1 GRAM/200 ML BAG 1 GM/200 ML PIGGYBACK IV ONE (05:54)
[2024-08-18 06:34] LABS: Absolute Neutrophil Ct (ANC) 9.19 x10^3/uL (1.78-5.38); BASOPHIL % 0.2 % (0.2-1.2); Basophil (Absolute #) 0.03 x10^3/uL (0.01-0.08); Eosinophil % 0.5 % (0.8-7.0); Eosinophil (Absolute #) 0.07 x10^3/uL (0.04-0.54); Hematocrit 36.3 % (40.1-51.0); Hemoglobin 11.7 g/dL (13.7-17.5); IMMATURE GRAN # 0.37 x10^3u/L (0.001-0.031); IMMATURE GRAN % 2.8 % (0.001-0.429); Lymphocyte (Absolute #) 2.45 x10^3/uL (1.32-3.57); Lymphocytes % 18.7 % (21.8-53.1); Mean Cell Volume 86.4 fL (79.0-92.2); Mean Corpuscular Hemoglobin 27.9 pg (25.7-32.2); Mean Corpuscular Hgb Concent. 32.2 g/dL (32.3-36.5); Mean Platelet Volume 10.1 fL (9.4-12.4); Monocyte (Absolute #) 0.99 x10^3/uL (0.30-0.82); Monocytes % 7.6 % (5.3-12.2); Neutrophil % 70.2 % (34.0-67.9); Platelet Count 297 x10^3/uL (163-337); White Blood Count 13.1 x10^3/uL (4.23-9.07)
[2024-08-18 07:09] LABS: ALBUMIN 3.6 g/dL (3.5-5.0); ANION GAP 10.9 MEQ/L (5-15); BILIRUBIN,TOTAL 0.4 mg/dL (0.2-1.3); Calcium 9.3 mg/dL (8.4-10.2); Creatinine 1 0.77 mg/dL (0.66-1.25); EST GLOMERULAR FILTRATION RATE 105.1 ML/MIN; Total Protein 6.7 g/dL (6.3-8.2)
[2024-08-18 07:15] LABS: Potassium 4.4 mmol/L (3.5-5.1)
[2024-08-18] MEDS: Pepcid 20 MG VIAL IV SCH (10:13)
[2024-08-18] MEDS: TROUGH DRUG LEVELS IJ ONE ×2 (13:56→20:15)
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
[2024-08-18] MEDS: PEAK DRUG LEVELS IJ ONE (20:47)
[2024-08-19 05:29] LABS: Hematocrit 40.4 % (40.1-51.0); Mean Cell Volume 87.3 fL (79.0-92.2); Mean Corpuscular Hemoglobin 28.1 pg (25.7-32.2); Mean Corpuscular Hgb Concent. 32.2 g/dL (32.3-36.5); Mean Platelet Volume 10.4 fL (9.4-12.4); Platelet Count 356 x10^3/uL (163-337); Red Blood Count 4.63 x10^6/uL (4.63-6.08); Red Cell Distribution Width 14.4 % (11.6-14.4); White Blood Count 14.6 x10^3/uL (4.23-9.07)
[2024-08-19 06:14] LABS: BILIRUBIN,TOTAL 0.5 mg/dL (0.2-1.3); Calcium 9.2 mg/dL (8.4-10.2); Creatinine 1 0.73 mg/dL (0.66-1.25); EST GLOMERULAR FILTRATION RATE 106.8 ML/MIN; Potassium 4.3 mmol/L (3.5-5.1); Total Protein 7.3 g/dL (6.3-8.2)
[2024-08-19 06:33] LABS: INR 0.94 (0.8-3.0); PROTIME 10.3 SECONDS (9.4-12.5); PTT 28.5 SECONDS (25.1-36.5)
[2024-08-19 08:40] LABS: Lymphocytes 9 % (21.8-53.1); Monocyte 4 % (5.3-12.2); Neutrophils 87 % (34.0-67.9); Total Cells Counted 100
[2024-08-19 08:41] LABS: Platelet Estimate NORMAL (NORMAL); Toxic Granulation 1+
--- NOTE | 2024-08-19 12:00 | XRAY ---
Indication: Ultrasound guidance for PICC line placement. Initial sonographic imaging of the left upper extremity was performed for localization of patent veins. A patent cephalic vein identified above the elbow. Ultrasound guidance was then used for PICC line insertion. Full PICC line insertion is reported separately
--- NOTE | 2024-08-19 12:02 | XRAY ---
Indication: Long-term IV access and therapy for right foot infection. Possible MRSA infection. Informed consent obtained. Patient was placed on the fluoroscopic table in a supine position. Initial sonographic imaging of the right upper extremity was performed for localization of patent veins. No adequate veins identified for percutaneous access. Sonographic imaging left upper extremity was performed for localization of patent veins. The left upper extremity was then prepped and draped in sterile fashion. Tourniquet applied. 1% lidocaine plain used for local anesthesia. Using ultrasound guidance and a micropuncture needle, a cephalic vein above the elbow was successfully percutaneously cannulized. A floppy tip 0.018 guidewire inserted. Tourniquet released. Needle was exchanged for a 5 Amharic dilator peel away sheath catheter. Ultimately a 5 Amharic double-lumen PICC line was inserted over a longer 0.018 guidewire. Catheter and guidewire further advanced and positioned in the distal SVC using fluoroscopic guidance. Guidewire removed. Both ports flushed with heparinized saline. Catheter was secured. Postoperative instructions and orders given. Patient discharged in good condition. Impression: Technically successful left upper extremity PICC line placement using ultrasound and fluoroscopic guidance. No immediate complications. Approximately 2 cc blood loss. Approximately 0.4 minute of fluoroscopy used. Catheter length is 50 cm.
[2024-08-19] MEDS: TROUGH DRUG LEVELS IJ ONE (13:16)
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
[2024-08-19] MEDS ORDERED: GENTAMICIN 80 MG/50 ML PREMIX*** 50 ML IV SCH (22:00)
[2024-08-20 05:03] VITALS: RESP 18
[2024-08-20 05:41] LABS: Absolute Neutrophil Ct (ANC) 10.56 x10^3/uL (1.78-5.38); BASOPHIL % 0.3 % (0.2-1.2); Basophil (Absolute #) 0.04 x10^3/uL (0.01-0.08); Eosinophil % 0.1 % (0.8-7.0); Eosinophil (Absolute #) 0.02 x10^3/uL (0.04-0.54); Hematocrit 38.9 % (40.1-51.0); Hemoglobin 12.4 g/dL (13.7-17.5); IMMATURE GRAN # 0.46 x10^3u/L (0.001-0.031); IMMATURE GRAN % 3.4 % (0.001-0.429); Lymphocyte (Absolute #) 1.77 x10^3/uL (1.32-3.57); Mean Cell Volume 87.6 fL (79.0-92.2); Mean Corpuscular Hemoglobin 27.9 pg (25.7-32.2); Mean Corpuscular Hgb Concent. 31.9 g/dL (32.3-36.5); Mean Platelet Volume 10.3 fL (9.4-12.4); Monocyte (Absolute #) 0.81 x10^3/uL (0.30-0.82); Monocytes % 5.9 % (5.3-12.2); Neutrophil % 77.3 % (34.0-67.9); Platelet Count 325 x10^3/uL (163-337); Red Blood Count 4.44 x10^6/uL (4.63-6.08); Red Cell Distribution Width 14.5 % (11.6-14.4); White Blood Count 13.7 x10^3/uL (4.23-9.07)
[2024-08-20 05:56] LABS: ANION GAP 14.2 MEQ/L (5-15); BILIRUBIN,TOTAL 0.5 mg/dL (0.2-1.3); Calcium 8.8 mg/dL (8.4-10.2); Creatinine 1 0.77 mg/dL (0.66-1.25); EST GLOMERULAR FILTRATION RATE 105.1 ML/MIN; Potassium 4.1 mmol/L (3.5-5.1); Total Protein 7.2 g/dL (6.3-8.2)
[2024-08-20] MEDS ORDERED: TROUGH DRUG LEVELS IJ ONE (09:30)
[2024-08-20] MEDS: GENTAMICIN 80 MG/50 ML PREMIX*** 50 ML IV SCH (09:55)
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
[2024-08-20] MEDS: VANCOMYCIN 1.25 GM/250 ML BAG 1.25 GM/250 ML PIGGYBACK IV SCH (10:54)
[2024-08-20 11:37] VITALS: BP 92/51; PULSE 59; TEMP 97.9; O2SAT 91
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
--- NOTE | 2024-08-20 14:02 | PCM.DCORD ---
- Discharge Discharge Date: 08/20/24 Disposition: Home, Self-Care Condition: Stable Prescriptions: New Gentamicin 80 mg Premix [Gentamicin 80 mg/50 ml Premix] 80 mg IV Q24H 7 Days #7 iv piggy Vancomycin/Water For Inj (Peg) [Vancomycin 1.25 gm/250 ml Bag] 1.25 gm IV DAILY 7 Days #7 iv piggy No Action Potassium Chloride Tab* [Klor Con] 10 meq PO DAILY Sennosides [Senna] 8.6 mg PO DAILY Hydrochlorothiazide 25 mg [hydroDIURIL 25 MG] 12.5 mg PO DAILY Albuterol 2.5 mg/3 ml Neb [Proventil 2.5 mg/3 ml Neb] 1 neb IH Q6HPRN PRN PRN Reason: Shortness Of Breath/Wheezing Baclofen 40 mg PO HS Cyclobenzaprine HCl 10 mg [Cyclobenzaprine 10 MG] 10 mg PO TIDPRN PRN PRN Reason: Muscle Spasms Famotidine 20 mg PO BID Folic Acid 1 mg PO DAILY Levothyroxine Sodium 25 mcg PO DAILY Lisinopril 20 mg [Zestril 20 MG] 20 mg PO DAILY Nystatin Powder 15 gm [Nystop Powder 15 gm] 1 applic TOP DAILY Pramipexole Di-HCl [Pramipexole Dihydrochloride] 1 mg PO DAILY Sertraline HCl 100 mg PO DAILY Zinc Amino Acid Chelate [Zinc] 50 mg PO DAILY Acetaminophen 325 mg [Tylenol 325 mg] 650 mg PO Q6HPRN PRN PRN Reason: Pain PANTOPRAZOLE 40 mg Tablet [Protonix 40MG Tablet] 40 mg PO DAILY Cetirizine HCl [Allergy Relief] 10 mg PO DAILY Baclofen 20 mg PO BID Furosemide [Lasix] 20 mg PO TIDPRN Esomeprazole Magnesium 40 mg PO DAILY Duloxetine HCl 30 mg [Cymbalta 30 MG Capsule] 60 mg PO DAILY Apixaban [Eliquis 2.5 mg Tablet] 5 mg PO BID Nystatin Cream 30 gm [Nystop 30 gm Cream] 30 gm TP BID Additional Instructions: PRISON ORDERS: ISOLATION PER FACILITY POLICY ADMIT TO SENIOR CARE FACILITY REGULAR DIET PROSTAT 64 30 ML TID WITH MEALS FLUTTER THERAPY TID OXYGEN AT 2L/NC, WEAN TOLERATED - DOES NOT WEAR AT HOME ROUTINE PICC LINE CARE ROUTINE OSTOMY (SIZE 2 3/4") AND SUPRAPUBIC CATHETER CARE KEEP SACRAL WOUND CLEAN, TRY TO OFFLOAD MUCH POSSIBLE [facility] HAS BEEN SET UP FOR TIME OF DC SEE RX FOR IV ANTIBIOTICS FOR 7 MORE DAYS FROM 08/20/24 FACILITY/FACILITY PHARMACY TO MANAGE LABS REQUIRED FOR ANTIBIOTICS SEE ATTACHED MED LIST Follow up with: TEN LEROY [Primary Care Provider] -
--- NOTE | 2024-08-20 14:06 | PCM.DCORD ---
- Discharge Disposition: Home, Self-Care Condition: Stable Prescriptions: New Gentamicin 80 mg Premix [Gentamicin 80 mg/50 ml Premix] 80 mg IV Q24H 7 Days #7 iv piggy Vancomycin/Water For Inj (Peg) [Vancomycin 1.25 gm/250 ml Bag] 1.25 gm IV DAILY 7 Days #7 iv piggy Heparin Flush 500 units/5 ml [Heparin Lock Flush 500 Units/5ml Syringe] 500 units PICC PRN PRN PRN Reason: . Continue Potassium Chloride Tab* [Klor Con] 10 meq PO DAILY Sennosides [Senna] 8.6 mg PO DAILY Hydrochlorothiazide 25 mg [hydroDIURIL 25 MG] 12.5 mg PO DAILY Albuterol 2.5 mg/3 ml Neb [Proventil 2.5 mg/3 ml Neb] 1 neb IH Q6HPRN PRN PRN Reason: Shortness Of Breath/Wheezing Baclofen 40 mg PO HS Cyclobenzaprine HCl 10 mg [Cyclobenzaprine 10 MG] 10 mg PO TIDPRN PRN PRN Reason: Muscle Spasms Famotidine 20 mg PO BID Folic Acid 1 mg PO DAILY Levothyroxine Sodium 25 mcg PO DAILY Lisinopril 20 mg [Zestril 20 MG] 20 mg PO DAILY Nystatin Powder 15 gm [Nystop Powder 15 gm] 1 applic TOP DAILY Pramipexole Di-HCl [Pramipexole Dihydrochloride] 1 mg PO DAILY Sertraline HCl 100 mg PO DAILY Zinc Amino Acid Chelate [Zinc] 50 mg PO DAILY Acetaminophen 325 mg [Tylenol 325 mg] 650 mg PO Q6HPRN PRN PRN Reason: Pain PANTOPRAZOLE 40 mg Tablet [Protonix 40MG Tablet] 40 mg PO DAILY Cetirizine HCl [Allergy Relief] 10 mg PO DAILY Baclofen 20 mg PO BID Furosemide [Lasix] 20 mg PO TIDPRN Esomeprazole Magnesium 40 mg PO DAILY Duloxetine HCl 30 mg [Cymbalta 30 MG Capsule] 60 mg PO DAILY Apixaban [Eliquis 2.5 mg Tablet] 5 mg PO BID Nystatin Cream 30 gm [Nystop 30 gm Cream] 30 gm TP BID Additional Instructions: SKILLED NURSING ORDERS: ISOLATION PER FACILITY POLICY ADMIT TO DETENTION FACILITY REGULAR DIET PROSTAT 64 30 ML TID WITH MEALS FLUTTER THERAPY TID OXYGEN AT 2L/NC, WEAN TOLERATED - DOES NOT WEAR AT HOME ROUTINE PICC LINE CARE ROUTINE OSTOMY (SIZE 2 3/4") AND SUPRAPUBIC CATHETER CARE KEEP SACRAL WOUND CLEAN, TRY TO OFFLOAD MUCH POSSIBLE [facility] HAS BEEN SET UP FOR TIME OF DC SEE RX FOR IV ANTIBIOTICS FOR 7 MORE DAYS FROM 08/20/24 FACILITY/FACILITY PHARMACY TO MANAGE LABS REQUIRED FOR ANTIBIOTICS SEE ATTACHED MED LIST Follow up with: TEN LEROY [Primary Care Provider] -
== END 2024-08-20 16:15 | disposition home or self-care (01) | DRG 189 ==
LOC: ED 03:01 → MED SURG 08:50 → OBSVTOIN 08-15 05:07
PROVIDERS: ADMIT Internal Medicine; ATTEND Internal Medicine
PROC: 05HY33Z Insertion of Infusion Device into Upper Vein, Percutaneous Approach (ICD-10-PCS; principal; 2024-08-19)
DX: J96.01 Acute respiratory failure with hypoxia (principal); L89.153 Pressure ulcer of sacral region, stage 3; J44.1 Chronic obstructive pulmonary disease with (acute) exacerbation; N39.0 Urinary tract infection, site not specified; G82.20 Paraplegia, unspecified; I11.0 Hypertensive heart disease with heart failure; I50.9 Heart failure, unspecified; Z43.3 Encounter for attention to colostomy; Z86.73 Personal history of transient ischemic attack (TIA), and cerebral infarction without residual deficits; E66.01 Morbid (severe) obesity due to excess calories; K21.9 Gastro-esophageal reflux disease without esophagitis; L89.152 Pressure ulcer of sacral region, stage 2; F17.200 Nicotine dependence, unspecified, uncomplicated; Z79.899 Other long term (current) drug therapy; Z79.01 Long term (current) use of anticoagulants
CPT/HCPCS: 0241U; 36415; 36569; 36573; 36600; 51702; 51705; 71045; 71260; 76937; 77001; 80053; 80170; 80202; 81001; 82375; 82803; 82947; 83880; 84132; 84145; 84484; 85025; 85610; 85730; 87040; 87070; 87077; 87086; 87186; 93005; 93041; 93268; 93306; 94640; 94667; 94668; 94760; 97161; 99285; G0378; Q3014; C1769; J0692; J1200; J1580; J1642; J1940; J2919; J7609; A9270-GY; J3370

== ENCOUNTER 2024-09-17 14:53 | Inpatient (IN) | payer MEDICARE ==
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
[2024-09-17 16:03] LABS: Absolute Neutrophil Ct (ANC) 8.37 x10^3/uL (1.78-5.38); BASOPHIL % 0.3 % (0.2-1.2); Basophil (Absolute #) 0.03 x10^3/uL (0.01-0.08); Eosinophil % 0.1 % (0.8-7.0); Eosinophil (Absolute #) 0.01 x10^3/uL (0.04-0.54); Hematocrit 34.1 % (40.1-51.0); Hemoglobin 11.1 g/dL (13.7-17.5); IMMATURE GRAN # 0.06 x10^3u/L (0.001-0.031); IMMATURE GRAN % 0.6 % (0.001-0.429); Lymphocyte (Absolute #) 1.04 x10^3/uL (1.32-3.57); Lymphocytes % 10.2 % (21.8-53.1); Mean Corpuscular Hemoglobin 28.3 pg (25.7-32.2); Mean Corpuscular Hgb Concent. 32.6 g/dL (32.3-36.5); Mean Platelet Volume 10.8 fL (9.4-12.4); Monocyte (Absolute #) 0.73 x10^3/uL (0.30-0.82); Monocytes % 7.1 % (5.3-12.2); Neutrophil % 81.7 % (34.0-67.9); Platelet Count 213 x10^3/uL (163-337); Red Blood Count 3.92 x10^6/uL (4.63-6.08); Red Cell Distribution Width 14.9 % (11.6-14.4); White Blood Count 10.2 x10^3/uL (4.23-9.07)
[2024-09-17] MEDS ORDERED: BACIGUENT PACKET ONE (16:07)
[2024-09-17] MEDS: BACIGUENT PACKET TP ONE (16:16)
[2024-09-17 16:23] LABS: INR 1.03 (0.8-3.0); PROTIME 11.2 SECONDS (9.4-12.5)
[2024-09-17 16:32] LABS: ALBUMIN 4.3 g/dL (3.5-5.0); ANION GAP 24.8 MEQ/L (5-15); BILIRUBIN,TOTAL 0.8 mg/dL (0.2-1.3); Calcium 9.7 mg/dL (8.4-10.2); Creatinine 1 1.99 mg/dL (0.66-1.25); EST GLOMERULAR FILTRATION RATE 38.7 ML/MIN; MAGNESIUM 2.4 mg/dL (1.6-2.3); Potassium 4.3 mmol/L (3.5-5.1); Total Protein 7.7 g/dL (6.3-8.2)
--- NOTE | 2024-09-17 17:36 | XRAY ---
Indication: Cough. Comparison: August 16, 2024 Portable chest demonstrates improving left base infiltrate/atelectasis/effusion with mild residual. Remaining heart and right lung unremarkable. Bony thorax intact again with osteopenia and mild degenerative changes. No new cardiopulmonary abnormalities.
--- NOTE | 2024-09-17 17:36 | XRAY ---
Indication: Injury following fall. Comparison: None 2View left lower leg demonstrates osteopenia, moderate ankle degenerative arthropathy, and anterior lower leg cutaneous arnold. No acute abnormalities.
--- NOTE | 2024-09-17 17:38 | XRAY ---
Indication: Injury following fall. Comparison: None 3 view sacrum/coccyx demonstrates osteopenia, remote excision distal sacrum/coccyx, mild/moderate lower lumbar degenerative spondylosis, moderate degenerative changes both hips, remote left femur neck fracture, mild scattered vascular calcifications, and suprapubic catheter. No other bony, articular, or soft tissue abnormalities.
[2024-09-17] MEDS: Sodium Chloride 0.9% 1000 ML 1,000 ML IV SCH (17:56)
[2024-09-17] MEDS ORDERED: Zofran 4 MG/2 ML VIAL IV PRN (20:07)
[2024-09-17] MEDS ORDERED: TYLENOL 325 MG PO PRN ×2 (20:07)
[2024-09-17] MEDS ORDERED: Cyclobenzaprine 10 MG PO PRN (20:07)
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
[2024-09-17] MEDS ORDERED: NON-FORMULARY ITEM (Baclofen [Baclofen] 20 MG Tablet) PO SCH (22:00)
[2024-09-17] MEDS ORDERED: LIORESAL 10 MG ONE (22:10)
[2024-09-17] MEDS ORDERED: Zyvox 600 MG IV PREMIX*** 300 ML IV ONE (22:19)
[2024-09-17] MEDS: Cipro 500 MG PO SCH (22:23)
[2024-09-17] MEDS: ELIQUIS 2.5 MG TABLET PO SCH (22:23)
[2024-09-17] MEDS: Pepcid 20 MG PO SCH (22:24)
[2024-09-17] MEDS: DELTASONE 20 MG PO SCH (22:24)
[2024-09-17] MEDS: NYSTOP 30 GM CREAM TP SCH (22:24)
[2024-09-17] MEDS: NON-FORMULARY ITEM (Baclofen [Baclofen] 20 MG Tablet) PO SCH (22:26)
[2024-09-18 05:58] LABS: Hemoglobin 9.4 g/dL (13.7-17.5); Mean Cell Volume 87.9 fL (79.0-92.2); Mean Corpuscular Hemoglobin 28.5 pg (25.7-32.2); Mean Corpuscular Hgb Concent. 32.4 g/dL (32.3-36.5); Platelet Count 174 x10^3/uL (163-337); Red Cell Distribution Width 15.1 % (11.6-14.4); White Blood Count 6.8 x10^3/uL (4.23-9.07)
[2024-09-18 07:12] LABS: ANION GAP 18.3 MEQ/L (5-15); Calcium 8.5 mg/dL (8.4-10.2); Creatinine 1 1.63 mg/dL (0.66-1.25); EST GLOMERULAR FILTRATION RATE 49.2 ML/MIN; MAGNESIUM 2.2 mg/dL (1.6-2.3); PREALBUMIN 19.99 mg/dL (17.6-36.0); Potassium 3.6 mmol/L (3.5-5.1)
[2024-09-18] MEDS: Sodium Chloride 0.9% 1000 ML 1,000 ML IV SCH (07:50)
--- NOTE | 2024-09-18 08:23 | PCM.NOTE ---
Date and Time: 09/18/24 0821 Subjective Assessment: 09/18/24 is a 54 year old male with a history of paraplegia, CHF, hyperlipidemia, hypertension, COPD and gastroesophageal reflux disease. He presented to the hospital on 09/17 after falling out of bed with a laceration to the anterior aspect of his left lower leg below the knee. The patient's home was, per paramedics, filthy with dirt and urine on the floor. Patient states he fell at 2:00 in the morning today and could not get himself up into bed. Patient has a permanent tracheostomy, permanent colostomy and a chronic coccygeal decubitus ulcer. He notes that he was recently issued a 10 day course prescription for 2 antibiotics to treat a UTI but he has only been able to take 1 of the 2 medications for the past 1 & 1/2 days; he does not remember if it was his PCP or an ID doctor who wrote the prescription. The patient is a poor historian and is somewhat tangential in replies to questions. He reported a cough to the ED but no hemoptysis or chest pain. Today podiatry consulted for wound of leg and toe. He developed a fever of 99 at 4am and BC x2 ordered today. Case management to assist with records to verify antibiotic dosing. He has HHC with [facility] and pt is rather non-compliant. PT saw pt wound on coccyx today and recs provied. He is in isolation for hx of MRSA. US pending. CK 911 and improving. Creat 1.63 and improving- continue IVF. He denies CP, SOB,abd pain, N/V/D. - Review of Systems Constitutional: No Fever, No Chills Eyes: No Symptoms Ears, Nose, & Throat: No Symptoms Respiratory: No Cough, No Short Of Breath Cardiac: No Chest Pain, No Edema, No Syncope Abdominal/Gastrointestinal: No Abdominal Pain, No Nausea, No Vomiting, No Diarrhea Genitourinary Symptoms: No Dysuria Musculoskeletal: No Back Pain, No Neck Pain Skin: Skin Lesions (Covered with dressings), Other (Coccyx ulcer- chronic), No Rash Neurological: No Dizziness, No Focal Weakness, No Sensory Changes Psychological: No Symptoms Endocrine: No Symptoms Hematologic/Lymphatic: No Symptoms Immunological/Allergic: No Symptoms Objective Exam General Appearance: no apparent distress, alert, obese Neurologic Exam: alert, oriented x 3, cooperative, normal mood/affect, other (at baseline), No motor deficits Skin Exam: normal color, warm, dry, other (lesions BLLE, coccyx- see pics in chart) Eye Exam: PERRL, EOMI, eyes nml inspection Ears, Nose, Throat Exam: normal ENT inspection, pharynx normal, moist mucous membranes Neck Exam: normal inspection, non-tender, supple, full range of motion Respiratory Exam: normal breath sounds, lungs clear, No respiratory distress Cardiovascular Exam: regular rate/rhythm, normal heart sounds Gastrointestinal/Abdomen Exam: soft, No tenderness, No mass Extremity Exam: normal inspection, normal range of motion Back Exam: normal inspection, normal range of motion, No CVA tenderness, No vertebral tenderness Male Genitalia Exam: deferred Rectal Exam: deferred Objective Data Vital Signs: Vital Signs - 24 hr Temp Pulse Resp BP BP Pulse Ox 09/18/24 07:52 98.2 F 88 18 122/60 95 09/18/24 04:00 99 F 83 20 88/50 95 09/17/24 20:44 66 16 121/63 97 09/17/24 20:40 70 18 93 L 09/17/24 20:00 66 16 121/63 97 09/17/24 19:16 79 12 74/55 79 L 09/17/24 19:01 66 17 88/56 98 09/17/24 18:46 63 18 82/58 92 L 09/17/24 18:30 82/56 98 09/17/24 18:00 57 L 95/75 97 09/17/24 17:46 77 18 114/86 86 L 09/17/24 17:43 90/57 98 09/17/24 17:35 89/58 09/17/24 16:10 58 L 12 95/79 96 09/17/24 16:00 66 21 66/57 96 09/17/24 15:34 94 L 09/17/24 15:31 103/73 09/17/24 15:01 97.2 F 70 15 92/75 93 L Pain Assessment - Last Documented Pain Intensity 0 Intake and Output: Intake & Output 09/15/24 09/16/24 09/17/24 09/18/24 11:59 11:59 11:59 11:59 Intake Total 4113 Output Total 350 Balance 3763 Weight 113.7 kg Lab Results: Lab Results-Last 24 Hours 09/17/24 09/17/24 09/17/24 Range/Units 15:56 15:56 15:56 WBC (4.23-9.07) x10^3/uL RBC (4.63-6.08) x10^6/uL Hgb (13.7-17.5) g/dL Hct (40.1-51.0) % MCV (79.0-92.2) fL MCH (25.7-32.2) pg MCHC (32.3-36.5) g/dL RDW (11.6-14.4) % Plt Count (163-337) x10^3/uL MPV (9.4-12.4) fL Gran % (34.0-67.9) % Immature Gran % (Auto) (0.001-0.429) % Nucleat RBC Rel Count (0.00-0.2) % Eos # (Auto) (0.04-0.54) x10^3/uL Immature Gran # (Auto) (0.001-0.031) x10^3u/L Absolute Lymphs (auto) (1.32-3.57) x10^3/uL Absolute Monos (auto) (0.30-0.82) x10^3/uL Absolute Nucleated RBC (0.00-0.012) x10^3u/L Lymphocytes % (21.8-53.1) % Monocytes % (5.3-12.2) % Eosinophils % (0.8-7.0) % Basophils % (0.2-1.2) % Absolute Granulocytes (1.78-5.38) x10^3/uL Basophils # (0.01-0.08) x10^3/uL PT 11.2 (9.4-12.5) SECONDS INR 1.03 (0.8-3.0) Sodium 146 H (135-145) mmol/L Potassium 4.3 (3.5-5.1) mmol/L Chloride 110 H (98-107) mmol/L Carbon Dioxide 16 L* (22-30) mmol/L Anion Gap 24.8 H (5-15) MEQ/L BUN 61 H (9-20) mg/dL Creatinine 1.99 H (0.66-1.25) mg/dL Estimated GFR 38.7 ML/MIN Glucose 131 H (74-106) mg/dL Calcium 9.7 (8.4-10.2) mg/dL Magnesium 2.4 H (1.6-2.3) mg/dL Total Bilirubin 0.80 (0.2-1.3) mg/dL AST 80 H (17-59) U/L ALT 49 (0-50) U/L Alkaline Phosphatase 104 (38-126) U/L Creatine Kinase (55-170) U/L Troponin I 0.021 (0.000-0.033) ng/mL NT-Pro-B Natriuret Pep 1140 (<300) pg/mL Serum Total Protein 7.7 (6.3-8.2) g/dL Albumin 4.3 (3.5-5.0) g/dL Prealbumin (17.6-36.0) mg/dL 09/17/24 09/17/24 09/18/24 Range/Units 15:56 16:00 05:32 WBC 10.2 H 6.8 (4.23-9.07) x10^3/uL RBC 3.92 L 3.30 L (4.63-6.08) x10^6/uL Hgb 11.1 L 9.4 L (13.7-17.5) g/dL Hct 34.1 L 29.0 L (40.1-51.0) % MCV 87.0 87.9 (79.0-92.2) fL MCH 28.3 28.5 (25.7-32.2) pg MCHC 32.6 32.4 (32.3-36.5) g/dL RDW 14.9 H 15.1 H (11.6-14.4) % Plt Count 213 174 (163-337) x10^3/uL MPV 10.8 11.0 (9.4-12.4) fL Gran % 81.7 H (34.0-67.9) % Immature Gran % (Auto) 0.6 H (0.001-0.429) % Nucleat RBC Rel Count 0.0 (0.00-0.2) % Eos # (Auto) 0.01 L (0.04-0.54) x10^3/uL Immature Gran # (Auto) 0.06 H (0.001-0.031) x10^3u/L Absolute Lymphs (auto) 1.04 L (1.32-3.57) x10^3/uL Absolute Monos (auto) 0.73 (0.30-0.82) x10^3/uL Absolute Nucleated RBC 0.00 (0.00-0.012) x10^3u/L Lymphocytes % 10.2 L (21.8-53.1) % Monocytes % 7.1 (5.3-12.2) % Eosinophils % 0.1 L (0.8-7.0) % Basophils % 0.3 (0.2-1.2) % Absolute Granulocytes 8.37 H (1.78-5.38) x10^3/uL Basophils # 0.03 (0.01-0.08) x10^3/uL PT (9.4-12.5) SECONDS INR (0.8-3.0) Sodium (135-145) mmol/L Potassium (3.5-5.1) mmol/L Chloride (98-107) mmol/L Carbon Dioxide (22-30) mmol/L Anion Gap (5-15) MEQ/L BUN (9-20) mg/dL Creatinine (0.66-1.25) mg/dL Estimated GFR ML/MIN Glucose (74-106) mg/dL Calcium (8.4-10.2) mg/dL Magnesium (1.6-2.3) mg/dL Total Bilirubin (0.2-1.3) mg/dL AST (17-59) U/L ALT (0-50) U/L Alkaline Phosphatase (38-126) U/L Creatine Kinase 1463 H (55-170) U/L Troponin I (0.000-0.033) ng/mL NT-Pro-B Natriuret Pep (<300) pg/mL Serum Total Protein (6.3-8.2) g/dL Albumin (3.5-5.0) g/dL Prealbumin (17.6-36.0) mg/dL 09/18/24 Range/Units 05:32 WBC (4.23-9.07) x10^3/uL RBC (4.63-6.08) x10^6/uL Hgb (13.7-17.5) g/dL Hct (40.1-51.0) % MCV (79.0-92.2) fL MCH (25.7-32.2) pg MCHC (32.3-36.5) g/dL RDW (11.6-14.4) % Plt Count (163-337) x10^3/uL MPV (9.4-12.4) fL Gran % (34.0-67.9) % Immature Gran % (Auto) (0.001-0.429) % Nucleat RBC Rel Count (0.00-0.2) % Eos # (Auto) (0.04-0.54) x10^3/uL Immature Gran # (Auto) (0.001-0.031) x10^3u/L Absolute Lymphs (auto) (1.32-3.57) x10^3/uL Absolute Monos (auto) (0.30-0.82) x10^3/uL Absolute Nucleated RBC (0.00-0.012) x10^3u/L Lymphocytes % (21.8-53.1) % Monocytes % (5.3-12.2) % Eosinophils % (0.8-7.0) % Basophils % (0.2-1.2) % Absolute Granulocytes (1.78-5.38) x10^3/uL Basophils # (0.01-0.08) x10^3/uL PT (9.4-12.5) SECONDS INR (0.8-3.0) Sodium 141 (135-145) mmol/L Potassium 3.6 (3.5-5.1) mmol/L Chloride 108 H (98-107) mmol/L Carbon Dioxide 18 L (22-30) mmol/L Anion Gap 18.3 H (5-15) MEQ/L BUN 55 H (9-20) mg/dL Creatinine 1.63 H (0.66-1.25) mg/dL Estimated GFR 49.2 ML/MIN Glucose 122 H (74-106) mg/dL Calcium 8.5 (8.4-10.2) mg/dL Magnesium 2.2 (1.6-2.3) mg/dL Total Bilirubin (0.2-1.3) mg/dL AST (17-59) U/L ALT (0-50) U/L Alkaline Phosphatase (38-126) U/L Creatine Kinase 911 H (55-170) U/L Troponin I (0.000-0.033) ng/mL NT-Pro-B Natriuret Pep (<300) pg/mL Serum Total Protein (6.3-8.2) g/dL Albumin (3.5-5.0) g/dL Prealbumin 19.99 (17.6-36.0) mg/dL Radiology Exams: Radiology Procedures Category Date Time Status CHEST 1 VIEW (PORTABLE) Stat Exams 09/17/24 16:32 Completed LOWER LEG Stat Exams 09/17/24 16:10 Completed SACRUM AND COCCYX Stat Exams 09/17/24 16:09 Completed Assessment/Plan (1) GUERRERO (acute kidney injury) Current Visit: Yes Status: Acute Assessment & Plan: - IVF - Creat 1.63- BL 0.77- trend Code(s): N17.9 - ACUTE KIDNEY FAILURE, UNSPECIFIED (2) Sacral decubitus ulcer, stage II Current Visit: No Status: Acute Assessment & Plan: - PT eval and awaiting recs for dressing changes - nursing to do dressing changes per PT - Old records reviewed and continue antibiotics for wound culture results Code(s): L89.152 - PRESSURE ULCER OF SACRAL REGION, STAGE 2 (3) Laceration of toe of left foot Current Visit: Yes Status: Acute Assessment & Plan: - podiatry consult - reviewed note and agree with plan of care Code(s): S91.119A - LACERATION W/O FB OF UNSP TOE W/O DAMAGE TO NAIL, INIT (4) Fall Current Visit: Yes Status: Acute Assessment & Plan: - From bed - CXR: Portable chest demonstrates improving left base infiltrate/atelectasis/effusion with mild residual. Remaining heart and right lung unremarkable. Bony thorax intact again with osteopenia and mild degenerative changes. No new cardiopulmonary abnormalities. -Tib/Fib XR: 2View left lower leg demonstrates osteopenia, moderate ankle degenerative arthropathy, and anterior lower leg cutaneous arnold. No acute abnormalities. - Sacrum and coccyx XR: 3 view sacrum/coccyx demonstrates osteopenia, remote excision distal sacrum/coccyx, mild/moderate lower lumbar degenerative spondylosis, moderate degenerative changes both hips, remote left femur neck fracture, mild scattered vascular calcifications, and suprapubic catheter. No other bony, articular, or soft tissue abnormalities. Code(s): W19.XXXA - UNSPECIFIED FALL, INITIAL ENCOUNTER (5) Rhabdomyolysis Current Visit: Yes Status: Acute Assessment & Plan: - CK 911- improving - IVF Code(s): M62.82 - RHABDOMYOLYSIS (6) Laceration of lower leg Current Visit: No Status: Acute Assessment & Plan: - podiatry consult Code(s): S81.819A - LACERATION WITHOUT FOREIGN BODY, UNSP LOWER LEG, INIT ENCNTR (7) UTI (urinary tract infection) Current Visit: No Status: Acute Assessment & Plan: - UA pending- - Continue OP antibiotics - Will review records when obtained Code(s): N39.0 - URINARY TRACT INFECTION, SITE NOT SPECIFIED (8) GERD (gastroesophageal reflux disease) Current Visit: No Status: Chronic Qualifiers: Esophagitis presence: without esophagitis Qualified Code(s): K21.9 - Gastro-esophageal reflux disease without esophagitis Assessment & Plan: - Continue pepcid and protonix Code(s): K21.9 - GASTRO-ESOPHAGEAL REFLUX DISEASE WITHOUT ESOPHAGITIS (9) HTN (hypertension) Current Visit: No Status: Chronic Assessment & Plan: - BP stable - Continue home meds Code(s): I10 - ESSENTIAL (PRIMARY) HYPERTENSION (10) History of stroke Current Visit: No Status: Chronic Assessment & Plan: - Continue Eliquis Code(s): Z86.73 - PRSNL HX OF TIA (TIA), AND CEREB INFRC W/O RESID DEFICITS (11) Paraplegic spinal paralysis Current Visit: No Status: Chronic Assessment & Plan: - at baseline - adds to complexity - [facility] Code(s): G82.20 - PARAPLEGIA, UNSPECIFIED (12) Morbid obesity Current Visit: Yes Status: Chronic Assessment & Plan: - advised diet and exercise control Code(s): E66.01 - MORBID (SEVERE) OBESITY DUE TO EXCESS CALORIES (13) Hx of traumatic brain injury Current Visit: Yes Status: Chronic Assessment & Plan: - noted adds to complexity - pt is a poor historian VTE: Eliquis PPI: Protonix Next of KIN: Elda Camilo [phone] D/C plan: 1-2 days Code status: Full Code(s): Z87.820 - PERSONAL HISTORY OF TRAUMATIC BRAIN INJURY
[2024-09-18] MEDS ORDERED: [UNRECOGNIZED DRUG - REMARK] PO SCH (10:00)
[2024-09-18] MEDS: ZYVOX PO SCH (10:00)
[2024-09-18] MEDS ORDERED: NON-FORMULARY ITEM (Pramipexole Di-Hcl [Pramipexole Dihydrochloride] 1 MG Tablet) PO SCH (10:00)
[2024-09-18] MEDS: NYSTOP POWDER 15 GM TOP SCH (10:00)
[2024-09-18] MEDS ORDERED: NON-FORMULARY ITEM (Esomeprazole Magnesium [Esomeprazole Magnesium] 40 MG Capsule.Dr) PO SCH (10:00)
[2024-09-18] MEDS ORDERED: NON-FORMULARY ITEM (Sertraline Hcl [Sertraline Hcl] 100 MG Tablet) PO SCH (10:00)
[2024-09-18] MEDS: ZOLOFT 50 MG TABLET PO SCH (10:04)
[2024-09-18] MEDS: Protonix 40MG Tablet PO SCH (10:05)
[2024-09-18] MEDS: Cymbalta 30 MG Capsule PO SCH (10:05)
[2024-09-18] MEDS: Mirapex 0.5 MG Tablet PO SCH (10:05)
[2024-09-18] MEDS: LIORESAL 10 MG PO SCH ×2 (10:05→22:25)
[2024-09-18] MEDS: SYNTHROID 25 MCG PO SCH (10:05)
[2024-09-18] MEDS: Acidophilus TABLET PO SCH (10:06)
[2024-09-18] MEDS: CLARITIN 10 MG PO SCH (10:06)
[2024-09-18] MEDS: FOLATE 1 MG PO SCH (10:06)
[2024-09-18] MEDS: Zyvox 600 MG IV PREMIX*** 300 ML IV SCH (13:31)
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
[2024-09-19 05:27] LABS: IFOB TEST RESULTS NEGATIVE (NEGATIVE)
[2024-09-19 05:33] LABS: Appearance Clear (Clear); Bilirubin Negative (Negative); Blood Small (Negative); Glucose, Urine Negative (Negative); Ketones Negative (Negative); Leukocyte Esterase Moderate (Negative); Nitrite Positive (Negative); Protein,Urine Dip Trace (Negative); RBC 0-2 /HPF (0-5); Specific Gravity 1.015 (1.005-1.030); Urobilinogen 0.2 mg/dL (0.2); WBC 21-50 /HPF (0-5)
[2024-09-19 05:45] LABS: Hematocrit 31.6 % (40.1-51.0); Hemoglobin 9.3 g/dL (13.7-17.5); Mean Cell Volume 96.9 fL (79.0-92.2); Mean Corpuscular Hemoglobin 28.5 pg (25.7-32.2); Mean Corpuscular Hgb Concent. 29.4 g/dL (32.3-36.5); Platelet Count 143 x10^3/uL (163-337); Red Blood Count 3.26 x10^6/uL (4.63-6.08); Red Cell Distribution Width 15.4 % (11.6-14.4); White Blood Count 6.8 x10^3/uL (4.23-9.07)
[2024-09-19 05:47] LABS: Bacteria Many /HPF (None Seen); Epithelial Cells Moderate /HPF (None Seen); Granular Casts 0-2 /LPF (None Seen)
[2024-09-19] MEDS: PROVENTIL 2.5 MG/3 ML NEB IH PRN (07:05)
[2024-09-19 08:06] LABS: ALBUMIN 2.9 g/dL (3.5-5.0); ANION GAP 12.5 MEQ/L (5-15); BILIRUBIN,TOTAL 0.3 mg/dL (0.2-1.3); Calcium 8.1 mg/dL (8.4-10.2); Creatinine 1 1.32 mg/dL (0.66-1.25); EST GLOMERULAR FILTRATION RATE 63.3 ML/MIN; Potassium 3.2 mmol/L (3.5-5.1); Total Protein 5.6 g/dL (6.3-8.2)
[2024-09-19] MEDS: Klor Con PO SCH (09:40)
[2024-09-19] MEDS: SENOKOT 8.6 MG PO SCH (10:53)
--- NOTE | 2024-09-19 15:04 | PCM.NOTE ---
Date and Time: 09/19/24 1455 Subjective Assessment: 09/18/24 is a 54 year old male with a history of paraplegia, CHF, hyperlipidemia, hypertension, COPD and gastroesophageal reflux disease. He presented to the hospital on 09/17 after falling out of bed with a laceration to the anterior aspect of his left lower leg below the knee. The patient's home was, per paramedics, filthy with dirt and urine on the floor. Patient states he fell at 2:00 in the morning today and could not get himself up into bed. Patient has a permanent tracheostomy, permanent colostomy and a chronic coccygeal decubitus ulcer. He notes that he was recently issued a 10 day course prescription for 2 antibiotics to treat a UTI but he has only been able to take 1 of the 2 medications for the past 1 & 1/2 days; he does not remember if it was his PCP or an ID doctor who wrote the prescription. The patient is a poor historian and is somewhat tangential in replies to questions. He reported a cough to the ED but no hemoptysis or chest pain. Today podiatry consulted for wound of leg and toe. He developed a fever of 99 at 4am and BC x2 ordered today. Case management to assist with records to verify antibiotic dosing. He has HHC with [facility] and pt is rather non-compliant. PT saw pt wound on coccyx today and recs provied. He is in isolation for hx of MRSA. US pending. CK 911 and improving. Creat 1.63 and improving- continue IVF. He denies CP, SOB,abd pain, N/V/D. 09/19/24 Pt resting in bed. UA + for UTI, UC pending. K+ 3.2 and replaced. CK improving and 429. Continue IV antibiotics. GUERRERO improving, continue IVF. Wound care recs per PT put in for nursing to do Q 1-2 hours with turning. He is refusing placement and wants to d/c home when able with HHC. He denies CP, SOB, abd. pain, N/V/D. - Review of Systems Constitutional: No Fever, No Chills Eyes: No Symptoms Ears, Nose, & Throat: No Symptoms Respiratory: No Cough, No Short Of Breath Cardiac: No Chest Pain, No Edema, No Syncope Abdominal/Gastrointestinal: No Abdominal Pain, No Nausea, No Vomiting, No Diarrhea Genitourinary Symptoms: No Dysuria Musculoskeletal: No Back Pain, No Neck Pain Skin: No Rash Neurological: No Dizziness, No Focal Weakness, No Sensory Changes Psychological: No Symptoms Endocrine: No Symptoms Hematologic/Lymphatic: No Symptoms Immunological/Allergic: No Symptoms Objective Exam General Appearance: no apparent distress, alert Neurologic Exam: alert, oriented x 3, cooperative, normal mood/affect, nml cerebellar function, sensation nml, other (at baseline), No motor deficits Skin Exam: normal color, warm, dry Wound Assessment: Skin/Wound Assessment Wound/Incision Assessment Start: 09/17/24 21:23 Text: Status: Active Freq: Q6H Protocol: Document 09/19/24 08:24 CW (Rec: 09/19/24 08:25 CW [id number]) Wound/Incision Assessment Coccyx Wound Assessment Shift Assessment Wound Type Pressure Ulcer Wound Stage Stage IV Drainage Amount Minimal Drainage Description Serous Drainage Odor None/Absent General Appearance Open to air,Draining Wound Bed Greatest Portion Red (Granulation),Yellow ( [place]) Wound Bed Lesser Portion Red (Granulation),Pale [place] Surrounding Tissue [place] Topical Solution/Irrigant Saline Irrigant Right Elbow Wound Assessment Shift Assessment Wound Type Skin Tear Wound Stage Non Pressure Wound Dressing Status Changed Drainage Amount None Drainage Odor None/Absent General Appearance Asymptomatic,Clean/Dry Left Lower Anterior Other Wound Type Laceration Wound Stage Non Pressure Wound Dressing Status Dry & Intact Drainage Amount None General Appearance Clean/Dry Surrounding Tissue [place] Topical Solution/Irrigant Saline Irrigant Primary Dressing Bordered foam mepilex Wound Photo Photo Taken Yes Eye Exam: PERRL, EOMI, eyes nml inspection Ears, Nose, Throat Exam: normal ENT inspection, pharynx normal, moist mucous membranes Neck Exam: normal inspection, non-tender, supple, full range of motion Respiratory Exam: normal breath sounds, lungs clear, No respiratory distress Cardiovascular Exam: regular rate/rhythm, normal heart sounds Gastrointestinal/Abdomen Exam: soft, No tenderness, No mass Extremity Exam: normal inspection, normal range of motion Back Exam: normal inspection, normal range of motion, No CVA tenderness, No vertebral tenderness Male Genitalia Exam: deferred Rectal Exam: deferred Objective Data Vital Signs: Vital Signs - 24 hr Temp Pulse Resp BP Pulse Ox 09/19/24 12:00 97.8 F 61 18 124/73 95 09/19/24 08:00 98.6 F 73 18 133/76 94 L 09/19/24 07:08 70 20 96 09/19/24 04:00 98.7 F 68 18 144/78 97 09/19/24 00:00 98.8 F 63 18 141/67 95 09/18/24 20:00 98.2 F 76 20 117/60 94 L 09/18/24 17:32 72 20 90 L 09/18/24 16:00 98 F 66 18 106/53 94 L Pain Assessment - Last Documented Pain Intensity 0 Intake and Output: Intake & Output 09/17/24 09/18/24 09/19/24 09/20/24 11:59 11:59 11:59 11:59 Intake Total 4113 5854 240 Output Total 350 2110 Balance 8450 8714 240 Weight 113.7 kg Lab Results: Lab Results-Last 24 Hours 09/17/24 09/18/24 09/19/24 Range/Units 05:16 05:16 04:00 WBC 6.8 (4.23-9.07) x10^3/uL RBC 3.26 L (4.63-6.08) x10^6/uL Hgb 9.3 L (13.7-17.5) g/dL Hct 31.6 L (40.1-51.0) % MCV 96.9 H D (79.0-92.2) fL MCH 28.5 (25.7-32.2) pg MCHC 29.4 L (32.3-36.5) g/dL RDW 15.4 H (11.6-14.4) % Plt Count 143 L (163-337) x10^3/uL MPV 11.0 (9.4-12.4) fL Sodium (135-145) mmol/L Potassium (3.5-5.1) mmol/L Chloride (98-107) mmol/L Carbon Dioxide (22-30) mmol/L Anion Gap (5-15) MEQ/L BUN (9-20) mg/dL Creatinine (0.66-1.25) mg/dL Estimated GFR ML/MIN Glucose (74-106) mg/dL Calcium (8.4-10.2) mg/dL Total Bilirubin (0.2-1.3) mg/dL AST (17-59) U/L ALT (0-50) U/L Alkaline Phosphatase (38-126) U/L Creatine Kinase (55-170) U/L Serum Total Protein (6.3-8.2) g/dL Albumin (3.5-5.0) g/dL Urine Color Yellow (Yellow) Urine Appearance Clear (Clear) Urine pH 5.0 (4.6-8.0) Ur Specific [place] 1.015 (1.005-1.030) Urine Protein Trace A (Negative) Urine Glucose (UA) Negative (Negative) mg/dL Urine Ketones Negative (Negative) Urine Blood Small A (Negative) Urine Nitrite Positive A (Negative) Urine Bilirubin Negative (Negative) Urine Urobilinogen 0.2 (0.2) mg/dL Ur Leukocyte Esterase Moderate A (Negative) U Hyaline Cast (Auto) 3-5 A (0-2) /LPF Urine Microscopic RBC 0-2 (0-5) /HPF Urine Microscopic WBC 21-50 A (0-5) /HPF Ur Epithelial Cells Moderate A (None Seen) /HPF Urine Bacteria Many A (None Seen) /HPF Granular Casts 0-2 A (None Seen) /LPF Urine Culture Reflexed YES (NO) Stl Occult Blood (IFOB) NEGATIVE (NEGATIVE) 09/19/24 Range/Units 06:20 WBC (4.23-9.07) x10^3/uL RBC (4.63-6.08) x10^6/uL Hgb (13.7-17.5) g/dL Hct (40.1-51.0) % MCV (79.0-92.2) fL MCH (25.7-32.2) pg MCHC (32.3-36.5) g/dL RDW (11.6-14.4) % Plt Count (163-337) x10^3/uL MPV (9.4-12.4) fL Sodium 138 (135-145) mmol/L Potassium 3.2 L (3.5-5.1) mmol/L Chloride 108 H (98-107) mmol/L Carbon Dioxide 21 L (22-30) mmol/L Anion Gap 12.5 (5-15) MEQ/L BUN 44 H (9-20) mg/dL Creatinine 1.32 H (0.66-1.25) mg/dL Estimated GFR 63.3 ML/MIN Glucose 166 H (74-106) mg/dL Calcium 8.1 L (8.4-10.2) mg/dL Total Bilirubin 0.30 (0.2-1.3) mg/dL AST 46 (17-59) U/L ALT 35 (0-50) U/L Alkaline Phosphatase 77 (38-126) U/L Creatine Kinase 429 H (55-170) U/L Serum Total Protein 5.6 L (6.3-8.2) g/dL Albumin 2.9 L (3.5-5.0) g/dL Urine Color (Yellow) Urine Appearance (Clear) Urine pH (4.6-8.0) Ur Specific [place] (1.005-1.030) Urine Protein (Negative) Urine Glucose (UA) (Negative) mg/dL Urine Ketones (Negative) Urine Blood (Negative) Urine Nitrite (Negative) Urine Bilirubin (Negative) Urine Urobilinogen (0.2) mg/dL Ur Leukocyte Esterase (Negative) U Hyaline Cast (Auto) (0-2) /LPF Urine Microscopic RBC (0-5) /HPF Urine Microscopic WBC (0-5) /HPF Ur Epithelial Cells (None Seen) /HPF Urine Bacteria (None Seen) /HPF Granular Casts (None Seen) /LPF Urine Culture Reflexed (NO) Stl Occult Blood (IFOB) (NEGATIVE) Radiology Exams: Radiology Procedures Category Date Time Status CHEST 1 VIEW (PORTABLE) Stat Exams 09/17/24 16:32 Completed LOWER LEG Stat Exams 09/17/24 16:10 Completed SACRUM AND COCCYX Stat Exams 09/17/24 16:09 Completed Assessment/Plan (1) GUERRERO (acute kidney injury) Current Visit: Yes Status: Acute Code(s): N17.9 - ACUTE KIDNEY FAILURE, UNSPECIFIED (2) Sacral decubitus ulcer, stage II Current Visit: No Status: Acute Code(s): L89.152 - PRESSURE ULCER OF SACRAL REGION, STAGE 2 (3) Laceration of toe of left foot Current Visit: Yes Status: Acute Code(s): S91.119A - LACERATION W/O FB OF UNSP TOE W/O DAMAGE TO NAIL, INIT (4) Fall Current Visit: Yes Status: Acute Code(s): W19.XXXA - UNSPECIFIED FALL, INITIAL ENCOUNTER (5) Rhabdomyolysis Current Visit: Yes Status: Acute Code(s): M62.82 - RHABDOMYOLYSIS (6) Laceration of lower leg Current Visit: No Status: Acute Code(s): S81.819A - LACERATION WITHOUT FOREIGN BODY, UNSP LOWER LEG, INIT ENCNTR (7) UTI (urinary tract infection) Current Visit: No Status: Acute Code(s): N39.0 - URINARY TRACT INFECTION, SITE NOT SPECIFIED (8) GERD (gastroesophageal reflux disease) Current Visit: No Status: Chronic Qualifiers: Esophagitis presence: without esophagitis Qualified Code(s): K21.9 - Gastro-esophageal reflux disease without esophagitis Code(s): K21.9 - GASTRO-ESOPHAGEAL REFLUX DISEASE WITHOUT ESOPHAGITIS (9) HTN (hypertension) Current Visit: No Status: Chronic Code(s): I10 - ESSENTIAL (PRIMARY) HYPERTENSION (10) History of stroke Current Visit: No Status: Chronic Code(s): Z86.73 - PRSNL HX OF TIA (TIA), AND CEREB INFRC W/O RESID DEFICITS (11) Paraplegic spinal paralysis Current Visit: No Status: Chronic Code(s): G82.20 - PARAPLEGIA, UNSPECIFIED (12) Morbid obesity Current Visit: Yes Status: Chronic Code(s): E66.01 - MORBID (SEVERE) OBESITY DUE TO EXCESS CALORIES (13) Hx of traumatic brain injury Current Visit: Yes Status: Chronic Assessment & Plan: (1) GUERRERO (acute kidney injury) Current Visit: Yes Status: Acute Assessment & Plan: - IVF - Creat 1.63- BL 0.77- trend 09/19 - Cont IVF - Creat 1.32- improving Code(s): N17.9 - ACUTE KIDNEY FAILURE, UNSPECIFIED (2) Sacral decubitus ulcer, stage II Current Visit: No Status: Acute Assessment & Plan: - PT eval and awaiting recs for dressing changes - nursing to do dressing changes per PT orders Q 1-2 hours - Old records reviewed and continue antibiotics for wound culture results - culture pending - BC x2 pending Code(s): L89.152 - PRESSURE ULCER OF SACRAL REGION, STAGE 2 (3) Laceration of toe of left foot Current Visit: Yes Status: Acute Assessment & Plan: - podiatry consult- reviewed note and agree with plan of care - reviewed note and agree with plan of care Code(s): S91.119A - LACERATION W/O FB OF UNSP TOE W/O DAMAGE TO NAIL, INIT (4) Fall Current Visit: Yes Status: Acute Assessment & Plan: - From bed - CXR: Portable chest demonstrates improving left base infiltrate/atelectasis/effusion with mild residual. Remaining heart and right lung unremarkable. Bony thorax intact again with osteopenia and mild degenerative changes. No new cardiopulmonary abnormalities. -Tib/Fib XR: 2View left lower leg demonstrates osteopenia, moderate ankle degenerative arthropathy, and anterior lower leg cutaneous arnold. No acute abnormalities. - Sacrum and coccyx XR: 3 view sacrum/coccyx demonstrates osteopenia, remote excision distal sacrum/coccyx, mild/moderate lower lumbar degenerative spondylosis, moderate degenerative changes both hips, remote left femur neck fracture, mild scattered vascular calcifications, and suprapubic catheter. No other bony, articular, or soft tissue abnormalities. Code(s): W19.XXXA - UNSPECIFIED FALL, INITIAL ENCOUNTER (5) Rhabdomyolysis Current Visit: Yes Status: Acute Assessment & Plan: - CK 911- improving - IVF 09/19 - CK 429- improving Code(s): M62.82 - RHABDOMYOLYSIS (6) Laceration of lower leg Current Visit: No Status: Acute Assessment & Plan: - podiatry consult reviewed and agree with plan of care Code(s): S81.819A - LACERATION WITHOUT FOREIGN BODY, UNSP LOWER LEG, INIT ENCNTR (7) UTI (urinary tract infection) Current Visit: No Status: Acute Assessment & Plan: - UA + for UTI- cont IV antibiotics - Continue OP antibiotics - UC pending - BC x2 pending Code(s): N39.0 - URINARY TRACT INFECTION, SITE NOT SPECIFIED (8) GERD (gastroesophageal reflux disease) Current Visit: No Status: Chronic Qualifiers: Esophagitis presence: without esophagitis Qualified Code(s): K21.9 - Gastro-esophageal reflux disease without esophagitis Assessment & Plan: - Continue pepcid and protonix Code(s): K21.9 - GASTRO-ESOPHAGEAL REFLUX DISEASE WITHOUT ESOPHAGITIS (9) HTN (hypertension) Current Visit: No Status: Chronic Assessment & Plan: - BP stable - Continue home meds Code(s): I10 - ESSENTIAL (PRIMARY) HYPERTENSION (10) History of stroke Current Visit: No Status: Chronic Assessment & Plan: - Continue Eliquis Code(s): Z86.73 - PRSNL HX OF TIA (TIA), AND CEREB INFRC W/O RESID DEFICITS (11) Paraplegic spinal paralysis Current Visit: No Status: Chronic Assessment & Plan: - at baseline - adds to complexity - [facility] Code(s): G82.20 - PARAPLEGIA, UNSPECIFIED (12) Morbid obesity Current Visit: Yes Status: Chronic Assessment & Plan: - advised diet and exercise control Code(s): E66.01 - MORBID (SEVERE) OBESITY DUE TO EXCESS CALORIES (13) Hx of traumatic brain injury Current Visit: Yes Status: Chronic Assessment & Plan: - noted adds to complexity - pt is a poor historian VTE: Elijasbir PPI: Protonix Next of KIN: Elda Stanton [phone] D/C plan: 1-2 days Code status: Full Code(s): Z87.820 - PERSONAL HISTORY OF TRAUMATIC BRAIN INJURY Code(s): Z87.820 - PERSONAL HISTORY OF TRAUMATIC BRAIN INJURY (14) Hypokalemia Current Visit: Yes Status: Acute Assessment & Plan: - K+ 3.2- replaced- trend Code(s): E87.6 - HYPOKALEMIA
[2024-09-20 06:03] LABS: Hematocrit 29.1 % (40.1-51.0); Hemoglobin 9.3 g/dL (13.7-17.5); Mean Cell Volume 88.7 fL (79.0-92.2); Mean Corpuscular Hemoglobin 28.4 pg (25.7-32.2); Mean Platelet Volume 10.5 fL (9.4-12.4); Platelet Count 168 x10^3/uL (163-337); Red Blood Count 3.28 x10^6/uL (4.63-6.08); Red Cell Distribution Width 14.9 % (11.6-14.4); White Blood Count 6.1 x10^3/uL (4.23-9.07)
[2024-09-20 06:30] LABS: ALBUMIN 3.2 g/dL (3.5-5.0); BILIRUBIN,TOTAL 0.3 mg/dL (0.2-1.3); Calcium 8.3 mg/dL (8.4-10.2); Creatinine 1 1.01 mg/dL (0.66-1.25); EST GLOMERULAR FILTRATION RATE 87.3 ML/MIN; MAGNESIUM 1.8 mg/dL (1.6-2.3); Potassium 3.8 mmol/L (3.5-5.1)
[2024-09-20] MEDS: Sodium Chloride 0.9% 1000 ML 1,000 ML IV SCH (08:03)
[2024-09-20] MEDS: Invanz *** 1 G in Sodium Chloride 100ML MINI-BAG PLUS 100 ML IV SCH (10:13)
--- NOTE | 2024-09-20 10:44 | PCM.NOTE ---
Date and Time: 09/20/24 1039 Subjective Assessment: 09/18/24 is a 54 year old male with a history of paraplegia, CHF, hyperlipidemia, hypertension, COPD and gastroesophageal reflux disease. He presented to the hospital on 09/17 after falling out of bed with a laceration to the anterior aspect of his left lower leg below the knee. The patient's home was, per paramedics, filthy with dirt and urine on the floor. Patient states he fell at 2:00 in the morning today and could not get himself up into bed. Patient has a permanent tracheostomy, permanent colostomy and a chronic coccygeal decubitus ulcer. He notes that he was recently issued a 10 day course prescription for 2 antibiotics to treat a UTI but he has only been able to take 1 of the 2 medications for the past 1 & 1/2 days; he does not remember if it was his PCP or an ID doctor who wrote the prescription. The patient is a poor historian and is somewhat tangential in replies to questions. He reported a cough to the ED but no hemoptysis or chest pain. Today podiatry consulted for wound of leg and toe. He developed a fever of 99 at 4am and BC x2 ordered today. Case management to assist with records to verify antibiotic dosing. He has HHC with [facility] and pt is rather non-compliant. PT saw pt wound on coccyx today and recs provied. He is in isolation for hx of MRSA. US pending. CK 911 and improving. Creat 1.63 and improving- continue IVF. He denies CP, SOB,abd pain, N/V/D. 09/19/24 Pt resting in bed. UA + for UTI, UC pending. K+ 3.2 and replaced. CK improving and 429. Continue IV antibiotics. GUERRERO improving, continue IVF. Wound care recs per PT put in for nursing to do Q 1-2 hours with turning. He is refusing placement and wants to d/c home when able with HHC. He denies CP, SOB, abd. pain, N/V/D. Pt resting in bed. He states he has no had a BM and has not been receiving his senokot. However, he has been receiving this medication and can add miralax. Coccyx wound culture back and IV antibiotics changed to Invanz. Will likely need swing bed for IP antibiotics. Ck 204 and IVF stopped and he is starting to get some edema of BLLE. BC x2 negative, UC pending. He denies any further concerns at this time. - Review of Systems Constitutional: No Fever, No Chills Eyes: No Symptoms Ears, Nose, & Throat: No Symptoms Respiratory: No Cough, No Short Of Breath Cardiac: No Chest Pain, No Edema, No Syncope Abdominal/Gastrointestinal: Constipation, No Abdominal Pain, No Nausea, No Vomiting, No Diarrhea Genitourinary Symptoms: No Dysuria Musculoskeletal: No Back Pain, No Neck Pain Skin: Skin Lesions (BLLE, coccyx), No Rash Neurological: No Dizziness, No Focal Weakness, No Sensory Changes Psychological: No Symptoms Endocrine: No Symptoms Hematologic/Lymphatic: No Symptoms Immunological/Allergic: No Symptoms Objective Exam General Appearance: no apparent distress, alert, obese Neurologic Exam: alert, oriented x 3, cooperative, normal mood/affect, nml cerebellar function, sensation nml, other (at baseline), No motor deficits Skin Exam: normal color, warm, dry, other (BLLE wrapped, coccyx wound, see pics in chart) Wound Assessment: Skin/Wound Assessment Wound/Incision Assessment Start: 09/17/24 21:23 Text: Status: Active Freq: Q6H Protocol: Document 09/20/24 08:00 JV (Rec: 09/20/24 09:40 JV [id number]) Wound/Incision Assessment Coccyx Wound Assessment Shift Assessment Wound Type Pressure Ulcer Wound Stage Stage III Drainage Amount Minimal Drainage Description Serous Drainage Odor None/Absent General Appearance Open to air,Draining Wound Bed Greatest Portion Red (Granulation),Yellow ( Slough) Wound Bed Lesser Portion Red (Granulation),Pale Harper Surrounding Tissue Harper Comment Nysatin, zinc and barrier creams applied as ordered Right Elbow Wound Assessment Shift Assessment Wound Type Skin Tear Wound Stage Non Pressure Wound Dressing Status Changed Drainage Amount None General Appearance Open to air Wound Bed Greatest Portion Dusky Red Left Lower Anterior Other Wound Type Laceration Primary Dressing siobhan boot Comment Siobhan boot in place Wound Photo Photo Taken No Eye Exam: PERRL, EOMI, eyes nml inspection Ears, Nose, Throat Exam: normal ENT inspection, pharynx normal, moist mucous membranes Neck Exam: normal inspection, non-tender, supple, full range of motion Respiratory Exam: normal breath sounds, lungs clear, No respiratory distress Cardiovascular Exam: regular rate/rhythm, normal heart sounds Gastrointestinal/Abdomen Exam: soft, No tenderness, No mass Extremity Exam: normal inspection, normal range of motion Back Exam: normal inspection, normal range of motion, No CVA tenderness, No vertebral tenderness Male Genitalia Exam: deferred Rectal Exam: deferred Objective Data Vital Signs: Vital Signs - 24 hr Temp Pulse Resp BP Pulse Ox 09/20/24 09:02 74 18 96 09/20/24 07:27 98.3 F 58 L 16 141/79 94 L 09/20/24 04:00 98.1 F 58 L 18 152/87 93 L 09/20/24 00:00 97.9 F 60 20 140/85 95 09/19/24 20:00 97.8 F 69 17 150/93 97 09/19/24 18:09 68 18 96 09/19/24 16:00 98 F 68 16 128/70 96 09/19/24 12:00 97.8 F 61 18 124/73 95 Pain Assessment - Last Documented Pain Intensity 0 Intake and Output: Intake & Output 09/17/24 09/18/24 09/19/24 09/20/24 11:59 11:59 11:59 11:59 Intake Total 4113 5854 2494 Output Total 350 2110 1700 Balance 3763 3744 794 Weight 113.7 kg Lab Results: Lab Results-Last 24 Hours 09/20/24 09/20/24 Range/Units 05:59 05:59 WBC 6.1 (4.23-9.07) x10^3/uL RBC 3.28 L (4.63-6.08) x10^6/uL Hgb 9.3 L (13.7-17.5) g/dL Hct 29.1 L (40.1-51.0) % MCV 88.7 D (79.0-92.2) fL MCH 28.4 (25.7-32.2) pg MCHC 32.0 L (32.3-36.5) g/dL RDW 14.9 H (11.6-14.4) % Plt Count 168 (163-337) x10^3/uL MPV 10.5 (9.4-12.4) fL Sodium 137 (135-145) mmol/L Potassium 3.8 (3.5-5.1) mmol/L Chloride 106 (98-107) mmol/L Carbon Dioxide 20 L (22-30) mmol/L Anion Gap 14.0 (5-15) MEQ/L BUN 35 H (9-20) mg/dL Creatinine 1.01 (0.66-1.25) mg/dL Estimated GFR 87.3 ML/MIN Glucose 129 H (74-106) mg/dL Calcium 8.3 L (8.4-10.2) mg/dL Magnesium 1.8 (1.6-2.3) mg/dL Total Bilirubin 0.30 (0.2-1.3) mg/dL AST 38 (17-59) U/L ALT 35 (0-50) U/L Alkaline Phosphatase 78 (38-126) U/L Creatine Kinase 204 H (55-170) U/L Serum Total Protein 6.0 L (6.3-8.2) g/dL Albumin 3.2 L (3.5-5.0) g/dL Multi-Disciplinary Progress Notes: Multi-Disciplinary Progress Notes 09/19/24 15:13 Case Management Note by Natalie Beth STILL PLANS TO RETURN HOME ON DISCHARGE. ADAMANT THAT HE WILL NOT GO TO FACILITY. PLAN TO RETURN HOME TO PRE EPISODIC LEVEL OF [facility] WITH CURRENT SERVICES. Initialized on 09/19/24 15:13 - END OF NOTE Assessment/Plan (1) GUERRERO (acute kidney injury) Current Visit: Yes Status: Acute Code(s): N17.9 - ACUTE KIDNEY FAILURE, UNSPECIFIED (2) Sacral decubitus ulcer, stage II Current Visit: No Status: Acute Code(s): L89.152 - PRESSURE ULCER OF SACRAL REGION, STAGE 2 (3) Laceration of toe of left foot Current Visit: Yes Status: Acute Code(s): S91.119A - LACERATION W/O FB OF UNSP TOE W/O DAMAGE TO NAIL, INIT (4) Fall Current Visit: Yes Status: Acute Code(s): W19.XXXA - UNSPECIFIED FALL, INITIAL ENCOUNTER (5) Rhabdomyolysis Current Visit: Yes Status: Acute Code(s): M62.82 - RHABDOMYOLYSIS (6) Laceration of lower leg Current Visit: No Status: Acute Code(s): S81.819A - LACERATION WITHOUT FOREIGN BODY, UNSP LOWER LEG, INIT ENCNTR (7) UTI (urinary tract infection) Current Visit: No Status: Acute Code(s): N39.0 - URINARY TRACT INFECTION, SITE NOT SPECIFIED (8) GERD (gastroesophageal reflux disease) Current Visit: No Status: Chronic Qualifiers: Esophagitis presence: without esophagitis Qualified Code(s): K21.9 - Gastro-esophageal reflux disease without esophagitis Code(s): K21.9 - GASTRO-ESOPHAGEAL REFLUX DISEASE WITHOUT ESOPHAGITIS (9) HTN (hypertension) Current Visit: No Status: Chronic Code(s): I10 - ESSENTIAL (PRIMARY) HYPERTENSION (10) History of stroke Current Visit: No Status: Chronic Code(s): Z86.73 - PRSNL HX OF TIA (TIA), AND CEREB INFRC W/O RESID DEFICITS (11) Paraplegic spinal paralysis Current Visit: No Status: Chronic Code(s): G82.20 - PARAPLEGIA, UNSPECIFIED (12) Morbid obesity Current Visit: Yes Status: Chronic Code(s): E66.01 - MORBID (SEVERE) OBESITY DUE TO EXCESS CALORIES (13) Hx of traumatic brain injury Current Visit: Yes Status: Chronic Code(s): Z87.820 - PERSONAL HISTORY OF TRAUMATIC BRAIN INJURY (14) Hypokalemia Current Visit: Yes Status: Acute Assessment & Plan: (1) GUERRERO (acute kidney injury) Current Visit: Yes Status: Acute Assessment & Plan: - IVF - Creat 1.63- BL 0.77- trend 09/19 - Cont IVF - Creat 1.32- improving 09/20 - resolved - IVF stopped - CMP reviewed Code(s): N17.9 - ACUTE KIDNEY FAILURE, UNSPECIFIED (2) Sacral decubitus ulcer, stage II Current Visit: No Status: Acute Assessment & Plan: - PT eval and awaiting recs for dressing changes - nursing to do dressing changes per PT orders Q 1-2 hours - Old records reviewed and continue antibiotics for wound culture results - culture pending - BC x2 neg 09/20 - Wound culture + for Providencia Stuarti and E-coli- antibiotic changed to Invanz - CBC reviewed Code(s): L89.152 - PRESSURE ULCER OF SACRAL REGION, STAGE 2 (3) Laceration of toe of left foot Current Visit: Yes Status: Acute Assessment & Plan: - podiatry consult- reviewed note and agree with plan of care - reviewed note and agree with plan of care Code(s): S91.119A - LACERATION W/O FB OF UNSP TOE W/O DAMAGE TO NAIL, INIT (4) Fall Current Visit: Yes Status: Acute Assessment & Plan: - From bed - CXR: Portable chest demonstrates improving left base infiltrate/atelectasis/effusion with mild residual. Remaining heart and right lung unremarkable. Bony thorax intact again with osteopenia and mild degenerative changes. No new cardiopulmonary abnormalities. -Tib/Fib XR: 2View left lower leg demonstrates osteopenia, moderate ankle degenerative arthropathy, and anterior lower leg cutaneous arnold. No acute abnormalities. - Sacrum and coccyx XR: 3 view sacrum/coccyx demonstrates osteopenia, remote excision distal sacrum/coccyx, mild/moderate lower lumbar degenerative spondylosis, moderate degenerative changes both hips, remote left femur neck fracture, mild scattered vascular calcifications, and suprapubic catheter. No other bony, articular, or soft tissue abnormalities. Code(s): W19.XXXA - UNSPECIFIED FALL, INITIAL ENCOUNTER (5) Rhabdomyolysis Current Visit: Yes Status: Acute Assessment & Plan: - CK 911- improving - IVF 09/19 - CK 429- improving 09/20 - CK 204 - IVF stopped Code(s): M62.82 - RHABDOMYOLYSIS (6) Laceration of lower leg Current Visit: No Status: Acute Assessment & Plan: - podiatry consult reviewed and agree with plan of care Code(s): S81.819A - LACERATION WITHOUT FOREIGN BODY, UNSP LOWER LEG, INIT ENCNTR (7) UTI (urinary tract infection) Current Visit: No Status: Acute Assessment & Plan: - UA + for UTI- cont IV antibiotics - Continue OP antibiotics - UC pending - BC x2 negative Code(s): N39.0 - URINARY TRACT INFECTION, SITE NOT SPECIFIED (8) GERD (gastroesophageal reflux disease) Current Visit: No Status: Chronic Qualifiers: Esophagitis presence: without esophagitis Qualified Code(s): K21.9 - Gastro-esophageal reflux disease without esophagitis Assessment & Plan: - Continue pepcid and protonix Code(s): K21.9 - GASTRO-ESOPHAGEAL REFLUX DISEASE WITHOUT ESOPHAGITIS (9) HTN (hypertension) Current Visit: No Status: Chronic Assessment & Plan: - BP stable - Continue home meds Code(s): I10 - ESSENTIAL (PRIMARY) HYPERTENSION (10) History of stroke Current Visit: No Status: Chronic Assessment & Plan: - Continue Eliquis Code(s): Z86.73 - PRSNL HX OF TIA (TIA), AND CEREB INFRC W/O RESID DEFICITS (11) Paraplegic spinal paralysis Current Visit: No Status: Chronic Assessment & Plan: - at baseline - adds to complexity - [facility] Code(s): G82.20 - PARAPLEGIA, UNSPECIFIED (12) Morbid obesity Current Visit: Yes Status: Chronic Assessment & Plan: - advised diet and exercise control Code(s): E66.01 - MORBID (SEVERE) OBESITY DUE TO EXCESS CALORIES (13) Hx of traumatic brain injury Current Visit: Yes Status: Chronic Assessment & Plan: - noted adds to complexity - pt is a poor historian Code(s): Z87.820 - PERSONAL HISTORY OF TRAUMATIC BRAIN INJURY (14) Hypokalemia Current Visit: Yes Status: Acute Assessment & Plan: - K+ 3.2- replaced- trend 09/20 - resolved Code(s): E87.6 - HYPOKALEMIA Code(s): E87.6 - HYPOKALEMIA (15) Constipation Current Visit: Yes Status: Acute Assessment & Plan: - Senokot, miralax VTE: Eliquis PPI: Protonix Next of KIN: Elda Paganead [phone] D/C plan: will need swing bed for IV antbx Code status: Full Code(s): K59.00 - CONSTIPATION, UNSPECIFIED
[2024-09-20] MEDS: Miralax Powder 17GM PACKET PO SCH (15:01)
[2024-09-21 05:56] LABS: Hematocrit 29.2 % (40.1-51.0); Hemoglobin 9.4 g/dL (13.7-17.5); Mean Cell Volume 88.2 fL (79.0-92.2); Mean Corpuscular Hemoglobin 28.4 pg (25.7-32.2); Mean Corpuscular Hgb Concent. 32.2 g/dL (32.3-36.5); Mean Platelet Volume 9.8 fL (9.4-12.4); Platelet Count 180 x10^3/uL (163-337); Red Blood Count 3.31 x10^6/uL (4.63-6.08); Red Cell Distribution Width 14.6 % (11.6-14.4)
[2024-09-21 06:24] LABS: ALBUMIN 3.2 g/dL (3.5-5.0); ANION GAP 12.8 MEQ/L (5-15); BILIRUBIN,TOTAL 0.3 mg/dL (0.2-1.3); Calcium 8.4 mg/dL (8.4-10.2); Creatinine 1 1.06 mg/dL (0.66-1.25); EST GLOMERULAR FILTRATION RATE 82.4 ML/MIN; Potassium 3.8 mmol/L (3.5-5.1); Total Protein 6.2 g/dL (6.3-8.2)
--- NOTE | 2024-09-21 10:35 | PCM.NOTE ---
Date and Time: 09/21/24 1027 Subjective Assessment: 09/18/24 is a 54 year old male with a history of paraplegia, CHF, hyperlipidemia, hypertension, COPD and gastroesophageal reflux disease. He presented to the hospital on 09/17 after falling out of bed with a laceration to the anterior aspect of his left lower leg below the knee. The patient's home was, per paramedics, filthy with dirt and urine on the floor. Patient states he fell at 2:00 in the morning today and could not get himself up into bed. Patient has a permanent tracheostomy, permanent colostomy and a chronic coccygeal decubitus ulcer. He notes that he was recently issued a 10 day course prescription for 2 antibiotics to treat a UTI but he has only been able to take 1 of the 2 medications for the past 1 & 1/2 days; he does not remember if it was his PCP or an ID doctor who wrote the prescription. The patient is a poor historian and is somewhat tangential in replies to questions. He reported a cough to the ED but no hemoptysis or chest pain. Today podiatry consulted for wound of leg and toe. He developed a fever of 99 at 4am and BC x2 ordered today. Case management to assist with records to verify antibiotic dosing. He has HHC with [facility] and pt is rather non-compliant. PT saw pt wound on coccyx today and recs provied. He is in isolation for hx of MRSA. US pending. CK 911 and improving. Creat 1.63 and improving- continue IVF. He denies CP, SOB,abd pain, N/V/D. 09/19/24 Pt resting in bed. UA + for UTI, UC pending. K+ 3.2 and replaced. CK improving and 429. Continue IV antibiotics. GUERRERO improving, continue IVF. Wound care recs per PT put in for nursing to do Q 1-2 hours with turning. He is refusing placement and wants to d/c home when able with HHC. He denies CP, SOB, abd. pain, N/V/D. Pt resting in bed. He states he has no had a BM and has not been receiving his senokot. However, he has been receiving this medication and can add miralax. Coccyx wound culture back and IV antibiotics changed to Invanz. Will likely need swing bed for IP antibiotics. Ck 204 and IVF stopped and he is starting to get some edema of BLLE. BC x2 negative, UC pending. He denies any further concerns at this time. 09/21/24 Pt resting in bed. He reports feeling much better. He was able to have a BM with Miralax added yesterday. Labs overall improved. UC came back today for e-coli and will continue Invanz for this as well. Pt will need OP antibiotics and discussed possible swing bed yesterday but today he states he thinks he can arrange transportation for OP antibiotics and come to the infusion center daily. He will also need to f/u with infectious disease OP. He denies any further concerns at this time. - Review of Systems Constitutional: No Fever, No Chills Eyes: No Symptoms Ears, Nose, & Throat: No Symptoms Respiratory: No Cough, No Short Of Breath Cardiac: No Chest Pain, No Edema, No Syncope Abdominal/Gastrointestinal: No Abdominal Pain, No Nausea, No Vomiting, No Diarrhea Genitourinary Symptoms: No Dysuria Musculoskeletal: No Back Pain, No Neck Pain Skin: Other (wounds to coccyx and BLLE-), No Rash Neurological: No Dizziness, No Focal Weakness, No Sensory Changes Psychological: No Symptoms Endocrine: No Symptoms Hematologic/Lymphatic: No Symptoms Immunological/Allergic: No Symptoms Objective Exam General Appearance: no apparent distress, alert, obese Neurologic Exam: alert, oriented x 3, cooperative, normal mood/affect, sensation nml, other (at baseline), No motor deficits Skin Exam: normal color, warm, dry, other (Wounds to coccyx and BLLE- see pics in chart as BLLE are wrapped and coccyx has medication on it.) Wound Assessment: Skin/Wound Assessment Wound/Incision Assessment Start: 09/17/24 21:23 Text: Status: Active Freq: Q6H Protocol: Document 09/21/24 08:00 RB (Rec: 09/21/24 08:33 RB [id number]) Wound/Incision Assessment Coccyx Wound Assessment Shift Assessment Wound Type Pressure Ulcer Wound Stage Stage III Drainage Amount Minimal Drainage Description Serous Drainage Odor None/Absent General Appearance Open to air,Draining Wound Bed Greatest Portion Red (Granulation),Yellow ( Slough) Wound Bed Lesser Portion Red (Granulation),Pale [place] Surrounding Tissue [place] Comment Nysatin, zinc and barrier creams applied Right Elbow Wound Assessment Shift Assessment Wound Type Skin Tear Wound Stage Non Pressure Wound Dressing Status Changed Drainage Amount None General Appearance Clean/Dry Wound Bed Greatest Portion Dusky Red Primary Dressing Foam mepilex Comment MEPILEX CDI AT THIS TIME Left Lower Anterior Other Wound Assessment Shift Assessment Wound Type Laceration Wound Stage Non Pressure Wound Primary Dressing siobhan boot Comment NO SHADOWING OR DRAINAGE NOTED Wound Photo Photo Taken No Eye Exam: PERRL, EOMI, eyes nml inspection Ears, Nose, Throat Exam: normal ENT inspection, pharynx normal, moist mucous membranes Neck Exam: normal inspection, non-tender, supple, full range of motion Respiratory Exam: normal breath sounds, lungs clear, No respiratory distress Cardiovascular Exam: regular rate/rhythm, normal heart sounds Gastrointestinal/Abdomen Exam: soft, No tenderness, No mass Extremity Exam: normal inspection, normal range of motion Back Exam: normal inspection, normal range of motion, No CVA tenderness, No vertebral tenderness Male Genitalia Exam: deferred Rectal Exam: deferred Objective Data Vital Signs: Vital Signs - 24 hr Temp Pulse Resp BP Pulse Ox 09/21/24 07:38 98.2 F 54 L 13 166/85 94 L 09/21/24 07:06 55 L 16 95 09/21/24 04:00 98.5 F 55 L 17 157/91 95 09/20/24 23:47 98.1 F 65 18 136/82 93 L 09/20/24 19:45 97.7 F 59 L 18 155/86 98 09/20/24 16:00 97.9 F 55 L 17 146/2 94 L 09/20/24 11:49 97.5 F 68 16 130/78 93 L Pain Assessment - Last Documented Pain Intensity 0 Intake and Output: Intake & Output 09/18/24 09/19/24 09/20/24 09/21/24 11:59 11:59 11:59 11:59 Intake Total 4113 5874 2494 2286 Output Total 350 2110 1700 1600 Balance 3763 3744 794 686 Weight 113.7 kg Lab Results: Lab Results-Last 24 Hours 09/21/24 09/21/24 Range/Units 05:52 05:52 WBC 7.0 (4.23-9.07) x10^3/uL RBC 3.31 L (4.63-6.08) x10^6/uL Hgb 9.4 L (13.7-17.5) g/dL Hct 29.2 L (40.1-51.0) % MCV 88.2 (79.0-92.2) fL MCH 28.4 (25.7-32.2) pg MCHC 32.2 L (32.3-36.5) g/dL RDW 14.6 H (11.6-14.4) % Plt Count 180 (163-337) x10^3/uL MPV 9.8 (9.4-12.4) fL Sodium 140 (135-145) mmol/L Potassium 3.8 (3.5-5.1) mmol/L Chloride 107 (98-107) mmol/L Carbon Dioxide 24 (22-30) mmol/L Anion Gap 12.8 (5-15) MEQ/L BUN 31 H (9-20) mg/dL Creatinine 1.06 (0.66-1.25) mg/dL Estimated GFR 82.4 ML/MIN Glucose 122 H (74-106) mg/dL Calcium 8.4 (8.4-10.2) mg/dL Total Bilirubin 0.30 (0.2-1.3) mg/dL AST 30 (17-59) U/L ALT 32 (0-50) U/L Alkaline Phosphatase 82 (38-126) U/L Serum Total Protein 6.2 L (6.3-8.2) g/dL Albumin 3.2 L (3.5-5.0) g/dL Assessment/Plan (1) GUERRERO (acute kidney injury) Current Visit: Yes Status: Acute Code(s): N17.9 - ACUTE KIDNEY FAILURE, UNSPECIFIED (2) Sacral decubitus ulcer, stage II Current Visit: No Status: Acute Code(s): L89.152 - PRESSURE ULCER OF SACRAL REGION, STAGE 2 (3) Laceration of toe of left foot Current Visit: Yes Status: Acute Code(s): S91.119A - LACERATION W/O FB OF UNSP TOE W/O DAMAGE TO NAIL, INIT (4) Fall Current Visit: Yes Status: Acute Code(s): W19.XXXA - UNSPECIFIED FALL, INITIAL ENCOUNTER (5) Rhabdomyolysis Current Visit: Yes Status: Acute Code(s): M62.82 - RHABDOMYOLYSIS (6) Laceration of lower leg Current Visit: No Status: Acute Code(s): S81.819A - LACERATION WITHOUT FOREIGN BODY, UNSP LOWER LEG, INIT ENCNTR (7) UTI (urinary tract infection) Current Visit: No Status: Acute Code(s): N39.0 - URINARY TRACT INFECTION, SITE NOT SPECIFIED (8) GERD (gastroesophageal reflux disease) Current Visit: No Status: Chronic Qualifiers: Esophagitis presence: without esophagitis Qualified Code(s): K21.9 - Gastro-esophageal reflux disease without esophagitis Code(s): K21.9 - GASTRO-ESOPHAGEAL REFLUX DISEASE WITHOUT ESOPHAGITIS (9) HTN (hypertension) Current Visit: No Status: Chronic Code(s): I10 - ESSENTIAL (PRIMARY) HYPERTENSION (10) History of stroke Current Visit: No Status: Chronic Code(s): Z86.73 - PRSNL HX OF TIA (TIA), AND CEREB INFRC W/O RESID DEFICITS (11) Paraplegic spinal paralysis Current Visit: No Status: Chronic Code(s): G82.20 - PARAPLEGIA, UNSPECIFIED (12) Morbid obesity Current Visit: Yes Status: Chronic Code(s): E66.01 - MORBID (SEVERE) OBESITY DUE TO EXCESS CALORIES (13) Hx of traumatic brain injury Current Visit: Yes Status: Chronic Code(s): Z87.820 - PERSONAL HISTORY OF TRAUMATIC BRAIN INJURY (14) Hypokalemia Current Visit: Yes Status: Acute Code(s): E87.6 - HYPOKALEMIA (15) Constipation Current Visit: Yes Status: Acute Assessment & Plan: (1) GUERRERO (acute kidney injury) Current Visit: Yes Status: Acute Assessment & Plan: - IVF - Creat 1.63- BL 0.77- trend 09/19 - Cont IVF - Creat 1.32- improving 09/20 - resolved - IVF stopped - CMP reviewed Code(s): N17.9 - ACUTE KIDNEY FAILURE, UNSPECIFIED (2) Sacral decubitus ulcer, stage II Current Visit: No Status: Acute Assessment & Plan: - PT eval and awaiting recs for dressing changes - nursing to do dressing changes per PT orders Q 1-2 hours - Old records reviewed and continue antibiotics for wound culture results - culture pending - BC x2 neg 09/20 - Wound culture + for Providencia Stuarti and E-coli- antibiotic changed to Invanz - CBC reviewed / - CBC reviewed - case management to arrange swing bed vs. OP IV antibiotics at infusion center if pt able to arrange transportation. Code(s): L89.152 - PRESSURE ULCER OF SACRAL REGION, STAGE 2 (3) Laceration of toe of left foot Current Visit: Yes Status: Acute Assessment & Plan: - podiatry consult- reviewed note and agree with plan of care - reviewed note and agree with plan of care Code(s): S91.119A - LACERATION W/O FB OF UNSP TOE W/O DAMAGE TO NAIL, INIT (4) Fall Current Visit: Yes Status: Acute Assessment & Plan: - From bed - CXR: Portable chest demonstrates improving left base infiltrate/atelectasis/effusion with mild residual. Remaining heart and right lung unremarkable. Bony thorax intact again with osteopenia and mild degenerative changes. No new cardiopulmonary abnormalities. -Tib/Fib XR: 2View left lower leg demonstrates osteopenia, moderate ankle degenerative arthropathy, and anterior lower leg cutaneous arnold. No acute abnormalities. - Sacrum and coccyx XR: 3 view sacrum/coccyx demonstrates osteopenia, remote excision distal sacrum/coccyx, mild/moderate lower lumbar degenerative spondylosis, moderate degenerative changes both hips, remote left femur neck fracture, mild scattered vascular calcifications, and suprapubic catheter. No other bony, articular, or soft tissue abnormalities. Code(s): W19.XXXA - UNSPECIFIED FALL, INITIAL ENCOUNTER (5) Rhabdomyolysis Current Visit: Yes Status: Acute Assessment & Plan: - CK 911- improving - IVF 09/19 - CK 429- improving 09/20 - CK 204 - IVF stopped Code(s): M62.82 - RHABDOMYOLYSIS (6) Laceration of lower leg Current Visit: No Status: Acute Assessment & Plan: - podiatry consult reviewed and agree with plan of care Code(s): S81.819A - LACERATION WITHOUT FOREIGN BODY, UNSP LOWER LEG, INIT ENCNTR (7) UTI (urinary tract infection) Current Visit: No Status: Acute Assessment & Plan: - UA + for UTI- cont IV antibiotics - Continue OP antibiotics - UC pending - BC x2 negative 09/21 - UC + e-coli- continue Invanz - CMP reviewed Code(s): N39.0 - URINARY TRACT INFECTION, SITE NOT SPECIFIED (8) GERD (gastroesophageal reflux disease) Current Visit: No Status: Chronic Qualifiers: Esophagitis presence: without esophagitis Qualified Code(s): K21.9 - Gastro-esophageal reflux disease without esophagitis Assessment & Plan: - Continue pepcid and protonix Code(s): K21.9 - GASTRO-ESOPHAGEAL REFLUX DISEASE WITHOUT ESOPHAGITIS (9) HTN (hypertension) Current Visit: No Status: Chronic Assessment & Plan: - BP stable - Continue home meds Code(s): I10 - ESSENTIAL (PRIMARY) HYPERTENSION (10) History of stroke Current Visit: No Status: Chronic Assessment & Plan: - Continue Eliquis Code(s): Z86.73 - PRSNL HX OF TIA (TIA), AND CEREB INFRC W/O RESID DEFICITS (11) Paraplegic spinal paralysis Current Visit: No Status: Chronic Assessment & Plan: - at baseline - adds to complexity - [facility] Code(s): G82.20 - PARAPLEGIA, UNSPECIFIED (12) Morbid obesity Current Visit: Yes Status: Chronic Assessment & Plan: - advised diet and exercise control Code(s): E66.01 - MORBID (SEVERE) OBESITY DUE TO EXCESS CALORIES (13) Hx of traumatic brain injury Current Visit: Yes Status: Chronic Assessment & Plan: - noted adds to complexity - pt is a poor historian Code(s): Z87.820 - PERSONAL HISTORY OF TRAUMATIC BRAIN INJURY (14) Hypokalemia Current Visit: Yes Status: Acute Assessment & Plan: - K+ 3.2- replaced- trend 3/ - resolved Code(s): E87.6 - HYPOKALEMIA (15) Constipation Current Visit: Yes Status: Acute Assessment & Plan: - Senokot, miralax VTE: Eliquis PPI: Protonix Next of KIN: Elda Camilo [phone] D/C plan: will need swing bed for IV antbx or d/c tomorrow Code status: Full Code(s): K59.00 - CONSTIPATION, UNSPECIFIED Code(s): K59.00 - CONSTIPATION, UNSPECIFIED
[2024-09-22 04:42] LABS: Hematocrit 29.2 % (40.1-51.0); Hemoglobin 9.3 g/dL (13.7-17.5); Mean Cell Volume 87.7 fL (79.0-92.2); Mean Corpuscular Hemoglobin 27.9 pg (25.7-32.2); Mean Corpuscular Hgb Concent. 31.8 g/dL (32.3-36.5); Platelet Count 184 x10^3/uL (163-337); Red Blood Count 3.33 x10^6/uL (4.63-6.08); Red Cell Distribution Width 14.6 % (11.6-14.4); White Blood Count 7.2 x10^3/uL (4.23-9.07)
[2024-09-22 04:56] LABS: ALBUMIN 3.1 g/dL (3.5-5.0); ANION GAP 10.4 MEQ/L (5-15); BILIRUBIN,TOTAL 0.3 mg/dL (0.2-1.3); Calcium 8.3 mg/dL (8.4-10.2); Creatinine 1 0.81 mg/dL (0.66-1.25); EST GLOMERULAR FILTRATION RATE 103.5 ML/MIN; Potassium 3.5 mmol/L (3.5-5.1); Total Protein 5.9 g/dL (6.3-8.2)
--- NOTE | 2024-09-22 05:19 | PCM.NOTE ---
Date and Time: 09/22/24 0514 Subjective Assessment: is a 54 year old male with a history of paraplegia, CHF, hyperlipidemia, hypertension, COPD and gastroesophageal reflux disease. He presented to the hospital on 09/17 after falling out of bed with a laceration to the anterior aspect of his left lower leg below the knee. The patient's home was, per paramedics, filthy with dirt and urine on the floor. Patient states he fell at 2:00 in the morning today and could not get himself up into bed. Patient has a permanent tracheostomy, permanent colostomy and a chronic coccygeal decubitus ulcer. He notes that he was recently issued a 10 day course prescription for 2 antibiotics to treat a UTI but he has only been able to take 1 of the 2 medications for the past 1 & 1/2 days; he does not remember if it was his PCP or an ID doctor who wrote the prescription. The patient is a poor historian and is somewhat tangential in replies to questions. He reported a cough to the ED but no hemoptysis or chest pain. Podiatry consulted for wound of leg and toe. Wound culture of the coccyx with providencia Stuartii and ecoli. Ucult with Ecoli. Antibiotic changed to Ertapenem (Invanz) He has HHC with [facility] and pt is rather non-compliant. PT saw pt wound on coccyx and recs provided. He is in isolation for hx of MRSA. Patient would like to go home if he can get transportation for abx. He will need ID follow up as OP. 09/22/24: Met with patient bedside. No complaints this morning. Discussed options for abx therapy with patient and case management. Will look into swing and facility placement for patient. PICC to be placed for 10 days of abx. Denies fever,cough, sob, cp, abdominal pain, HERNANDEZ, dizziness, N/V/D. - Review of Systems Constitutional: No Symptoms Eyes: No Symptoms Ears, Nose, & Throat: No Symptoms Respiratory: No Symptoms, Other (trach stoma) Cardiac: No Symptoms Abdominal/Gastrointestinal: No Symptoms Genitourinary Symptoms: No Symptoms, Other (chronic cath) Musculoskeletal: No Symptoms Skin: Decubiti, Skin Lesions Neurological: Paralysis Psychological: No Symptoms Endocrine: No Symptoms Hematologic/Lymphatic: No Symptoms Objective Exam General Appearance: no apparent distress Neurologic Exam: alert, oriented x 3, cooperative Skin Exam: normal color, decubitus Wound Assessment: Skin/Wound Assessment Wound/Incision Assessment Start: 09/17/24 21:23 Text: Status: Active Freq: Q6H Protocol: Document 09/22/24 02:00 CW (Rec: 09/22/24 02:11 CW [id number]) Wound/Incision Assessment Coccyx Wound Assessment Shift Assessment Wound Type Pressure Ulcer Wound Stage Stage III Drainage Amount Minimal Drainage Description Serous Drainage Odor None/Absent General Appearance Open to air,Draining Wound Bed Greatest Portion Red (Granulation),Yellow ( Slough) Wound Bed Lesser Portion Red (Granulation),Pale [place] Surrounding Tissue [place] Comment ORDERED OINTMENT MIX APPLIED. Right Elbow Wound Assessment Shift Assessment Wound Type Skin Tear Wound Stage Non Pressure Wound Dressing Status Changed Drainage Amount None General Appearance Clean/Dry Wound Bed Greatest Portion Dusky Red Comment SCABBED OVER Left Lower Anterior Other Wound Assessment Shift Assessment Wound Type Laceration Wound Stage Non Pressure Wound Primary Dressing DAMARIS BOOT Comment DAMARIS BOOT CDI-NO SHADOWING NOTED Wound Photo Photo Taken No Eye Exam: PERRL Ears, Nose, Throat Exam: normal ENT inspection Neck Exam: normal inspection Respiratory Exam: normal breath sounds, lungs clear Cardiovascular Exam: regular rate/rhythm, normal heart sounds Gastrointestinal/Abdomen Exam: soft, normal bowel sounds Extremity Exam: normal inspection Back Exam: normal inspection Male Genitalia Exam: deferred Rectal Exam: deferred Objective Data Vital Signs: Vital Signs - 24 hr Temp Pulse Resp BP Pulse Ox 09/22/24 04:00 51 L 20 188/97 96 09/21/24 23:35 98.9 F 57 L 20 169/90 94 L 09/21/24 22:34 97 09/21/24 20:00 98.5 F 61 20 152/89 95 09/21/24 16:00 98.1 F 58 L 19 149/87 93 L 09/21/24 11:45 98.4 F 58 L 16 156/96 91 L 09/21/24 07:38 98.2 F 54 L 13 166/85 94 L 09/21/24 07:06 55 L 16 95 Pain Assessment - Last Documented Pain Intensity 0 Intake and Output: Intake & Output 09/19/24 09/20/24 09/21/24 09/22/24 11:59 11:59 11:59 11:59 Intake Total 5867 5412 0081 1420 Output Total 2110 1700 1600 3200 Balance 3744 554 088 -3904 Lab Results: Lab Results-Last 24 Hours 09/21/24 09/21/24 09/22/24 Range/Units 05:52 05:52 04:10 WBC 7.0 7.2 (4.23-9.07) x10^3/uL RBC 3.31 L 3.33 L (4.63-6.08) x10^6/uL Hgb 9.4 L 9.3 L (13.7-17.5) g/dL Hct 29.2 L 29.2 L (40.1-51.0) % MCV 88.2 87.7 (79.0-92.2) fL MCH 28.4 27.9 (25.7-32.2) pg MCHC 32.2 L 31.8 L (32.3-36.5) g/dL RDW 14.6 H 14.6 H (11.6-14.4) % Plt Count 180 184 (163-337) x10^3/uL MPV 9.8 10.0 (9.4-12.4) fL Sodium 140 (135-145) mmol/L Potassium 3.8 (3.5-5.1) mmol/L Chloride 107 (98-107) mmol/L Carbon Dioxide 24 (22-30) mmol/L Anion Gap 12.8 (5-15) MEQ/L BUN 31 H (9-20) mg/dL Creatinine 1.06 (0.66-1.25) mg/dL Estimated GFR 82.4 ML/MIN Glucose 122 H (74-106) mg/dL Calcium 8.4 (8.4-10.2) mg/dL Total Bilirubin 0.30 (0.2-1.3) mg/dL AST 30 (17-59) U/L ALT 32 (0-50) U/L Alkaline Phosphatase 82 (38-126) U/L Serum Total Protein 6.2 L (6.3-8.2) g/dL Albumin 3.2 L (3.5-5.0) g/dL 09/22/24 Range/Units 04:10 WBC (4.23-9.07) x10^3/uL RBC (4.63-6.08) x10^6/uL Hgb (13.7-17.5) g/dL Hct (40.1-51.0) % MCV (79.0-92.2) fL MCH (25.7-32.2) pg MCHC (32.3-36.5) g/dL RDW (11.6-14.4) % Plt Count (163-337) x10^3/uL MPV (9.4-12.4) fL Sodium 138 (135-145) mmol/L Potassium 3.5 (3.5-5.1) mmol/L Chloride 104 (98-107) mmol/L Carbon Dioxide 27 (22-30) mmol/L Anion Gap 10.4 (5-15) MEQ/L BUN 24 H (9-20) mg/dL Creatinine 0.81 (0.66-1.25) mg/dL Estimated GFR 103.5 ML/MIN Glucose 148 H (74-106) mg/dL Calcium 8.3 L (8.4-10.2) mg/dL Total Bilirubin 0.30 (0.2-1.3) mg/dL AST 25 (17-59) U/L ALT 29 (0-50) U/L Alkaline Phosphatase 94 (38-126) U/L Serum Total Protein 5.9 L (6.3-8.2) g/dL Albumin 3.1 L (3.5-5.0) g/dL Assessment/Plan (1) GUERRERO (acute kidney injury) Current Visit: Yes Status: Acute Assessment & Plan: - IVF - Creat reviewed at 0.81- BL 0.77 - Cont IVF -IVF discontinued -Continue to monitor renal/lytes -avoid nephrotoxic meds Code(s): N17.9 - ACUTE KIDNEY FAILURE, UNSPECIFIED (2) Fall Current Visit: Yes Status: Acute Assessment & Plan: - CXR: Portable chest demonstrates improving left base infiltrate/atelectasis/effusion with mild residual. Remaining heart and right lung unremarkable. Bony thorax intact again with osteopenia and mild degenerative changes. No new cardiopulmonary abnormalities. -Tib/Fib XR: 2View left lower leg demonstrates osteopenia, moderate ankle degenerative arthropathy, and anterior lower leg cutaneous arnold. No acute abnormalities. - Sacrum and coccyx XR: 3 view sacrum/coccyx demonstrates osteopenia, remote excision distal sacrum/coccyx, mild/moderate lower lumbar degenerative spondylosis, moderate degenerative changes both hips, remote left femur neck fracture, mild scattered vascular calcifications, and suprapubic catheter. No other bony, articular, or soft tissue abnormalities. -Patient to consider placement for rehab and abx -PT eval Code(s): W19.XXXA - UNSPECIFIED FALL, INITIAL ENCOUNTER (3) Hypokalemia Current Visit: Yes Status: Acute Assessment & Plan: - resolved - potassium at 3.5 -continue to hold HCTZ -Tele -continue to trend renal/lytes daily Code(s): E87.6 - HYPOKALEMIA (4) Rhabdomyolysis Current Visit: Yes Status: Acute Assessment & Plan: -2/2 to fall at home -IVF discontinued -CK levels much improved - trend Code(s): M62.82 - RHABDOMYOLYSIS (5) Hx of traumatic brain injury Current Visit: Yes Status: Chronic Assessment & Plan: - noted adds to complexity Code(s): Z87.820 - PERSONAL HISTORY OF TRAUMATIC BRAIN INJURY (6) Laceration of lower leg Current Visit: No Status: Acute Assessment & Plan: - podiatry consult reviewed -Unna boot applied to the left lower extremity for localized edema and venous insufficiency. No further treatment recommended at this time- agree with plan Code(s): S81.819A - LACERATION WITHOUT FOREIGN BODY, UNSP LOWER LEG, INIT ENCNTR (7) Sacral decubitus ulcer, stage II Current Visit: No Status: Acute Assessment & Plan: - nursing to do dressing changes per PT orders Q 1-2 hours - Old records reviewed and continue antibiotics for wound culture results - Wound culture + for Providencia Stuarti and E-coli- antibiotic changed to Invanz - CBC reviewed - case management to arrange swing bed/SNF placement vs. OP/ IV antibiotics at infusion center if pt able to arrange transportation. Code(s): L89.152 - PRESSURE ULCER OF SACRAL REGION, STAGE 2 (8) UTI (urinary tract infection) Current Visit: No Status: Acute Assessment & Plan: - UC + e-coli- continue Invanz - CMP reviewed Code(s): N39.0 - URINARY TRACT INFECTION, SITE NOT SPECIFIED (9) GERD (gastroesophageal reflux disease) Current Visit: No Status: Chronic Qualifiers: Esophagitis presence: without esophagitis Qualified Code(s): K21.9 - Gastro-esophageal reflux disease without esophagitis Assessment & Plan: - Continue pepcid and protonix Code(s): K21.9 - GASTRO-ESOPHAGEAL REFLUX DISEASE WITHOUT ESOPHAGITIS (10) HTN (hypertension) Current Visit: No Status: Chronic Assessment & Plan: - BP stable - Continue home meds Code(s): I10 - ESSENTIAL (PRIMARY) HYPERTENSION (11) History of stroke Current Visit: No Status: Chronic Assessment & Plan: - Continue Eliquis Code(s): Z86.73 - PRSNL HX OF TIA (TIA), AND CEREB INFRC W/O RESID DEFICITS (12) Morbid obesity Current Visit: No Status: Chronic Assessment & Plan: - advised diet and exercise control Code(s): E66.01 - MORBID (SEVERE) OBESITY DUE TO EXCESS CALORIES (13) Paraplegic spinal paralysis Current Visit: No Status: Chronic Assessment & Plan: - at baseline - adds to complexity - [facility] Code(s): G82.20 - PARAPLEGIA, UNSPECIFIED (14) Constipation Current Visit: Yes Status: Acute Assessment & Plan: - Senokot, miralax Code(s): K59.00 - CONSTIPATION, UNSPECIFIED
[2024-09-22 07:35] VITALS: RESP 18
[2024-09-22 08:09] VITALS: PULSE 54
[2024-09-22] MEDS: Zestril 20 MG PO SCH (10:20)
[2024-09-22] MEDS: Klor Con PO SCH (10:35)
--- NOTE | 2024-09-22 11:48 | PCM.DS ---
Discharge Summary Date of Admission: 09/18/24 08:21 Date of Discharge: 09/22/24 Admitting Physician: POOL MARTINEZ MD Consults: Consults on Case 09/17/24 20:11 Case Management SDOH DC Needs Assessment ROUTINE 09/18/24 08:17 Consult Podiatry ROUTINE Primary Care Provider: TEN LEROY Allergies Allergies morphine Allergy (Mild, Verified 09/17/24 15:15) violent Penicillins Allergy (Unknown, Verified 09/17/24 15:15) unknown Latex, Natural Rubber Allergy (Verified 09/17/24 15:15) Rash cefepime Adverse Reaction (Intermediate, Verified 09/17/24 15:15) Swelling of Tongue and Lips Hospital Summary - Hospital Course Hospital Course: is a 54 year old male with a history of paraplegia, CHF, hyperlipidemia, hypertension, COPD and gastroesophageal reflux disease. He presented to the hospital on 09/17 after falling out of bed with a laceration to the anterior aspect of his left lower leg below the knee. The patient's home was, per paramedics, filthy with dirt and urine on the floor. Patient states he fell at 2:00 in the morning today and could not get himself up into bed. Montez aranda has a permanent tracheostomy, permanent colostomy and a chronic coccygeal decubitus ulcer. He notes that he was recently issued a 10 day course prescription for 2 antibiotics to treat a UTI but he has only been able to take 1 of the 2 medications for the past 1 & 1/2 days; he does not remember if it was his PCP or an ID doctor who wrote the prescription. The patient is a poor historian and is somewhat tangential in replies to questions. He reported a cough to the ED but no hemoptysis or chest pain. Podiatry consulted for wound of leg and toe. Wound culture of the coccyx with providencia Stuartii and ecoli. Ucult with Ecoli. Antibiotic changed to Ertapenem (Invanz) He has HHC with [facility] and pt is rather non-compliant. PT saw pt wound on coccyx and recs provided. He is in isolation for hx of MRSA. Patient to transition to swing bed for 10 days of Invanz. He will need ID follow up as OP. 09/22/24: Met with patient bedside. No complaints this morning. Discussed options for abx therapy with patient and case management. PICC to be placed for 10 days of abx. Denies fever,cough, sob, cp, abdominal pain, HERNANDEZ, dizziness, N/V/D. Patient to transition to swing bed for antiobiotics. - Vitals & Intake/Output Vital Signs: Vital Signs Temperature 97.9 F 09/22/24 08:00 Pulse Rate 54 L 09/22/24 08:00 Respiratory Rate 18 09/22/24 08:00 Blood Pressure 169/101 09/22/24 08:00 O2 Sat by Pulse Oximetry 96 09/22/24 08:00 Intake & Output: Intake & Output 09/19/24 09/20/24 09/21/24 09/22/24 11:59 11:59 11:59 11:59 Intake Total 5854 2494 2536 2020 Output Total 2110 1700 1600 3200 Balance 3744 794 356 1180 - Lab Result Diagrams: 09/22/24 04:10 09/22/24 04:10 Lab Results-Last 24 Hrs: Lab Results-Last 24 Hours 09/22/24 09/22/24 Range/Units 04:10 04:10 WBC 7.2 (4.23-9.07) x10^3/uL RBC 3.33 L (4.63-6.08) x10^6/uL Hgb 9.3 L (13.7-17.5) g/dL Hct 29.2 L (40.1-51.0) % MCV 87.7 (79.0-92.2) fL MCH 27.9 (25.7-32.2) pg MCHC 31.8 L (32.3-36.5) g/dL RDW 14.6 H (11.6-14.4) % Plt Count 184 (163-337) x10^3/uL MPV 10.0 (9.4-12.4) fL Sodium 138 (135-145) mmol/L Potassium 3.5 (3.5-5.1) mmol/L Chloride 104 (98-107) mmol/L Carbon Dioxide 27 (22-30) mmol/L Anion Gap 10.4 (5-15) MEQ/L BUN 24 H (9-20) mg/dL Creatinine 0.81 (0.66-1.25) mg/dL Estimated GFR 103.5 ML/MIN Glucose 148 H (74-106) mg/dL Calcium 8.3 L (8.4-10.2) mg/dL Total Bilirubin 0.30 (0.2-1.3) mg/dL AST 25 (17-59) U/L ALT 29 (0-50) U/L Alkaline Phosphatase 94 (38-126) U/L Serum Total Protein 5.9 L (6.3-8.2) g/dL Albumin 3.1 L (3.5-5.0) g/dL Micro Results-Entire Visit: Microbiology 09/17/24 05:16 Urine Culture - Final Clean Catch Midstream Escherichia Coli 09/18/24 12:30 Wound Culture - Final Coccyx Providencia Stuartii Escherichia Coli 09/18/24 09:34 Blood Culture - Preliminary Blood 09/18/24 09:18 Blood Culture - Preliminary Blood - Radiology Exams Ordered Rad Exams-Entire Visit: Radiology Procedures Category Date Time Status PICC LINE PLACEMENT Urgent Exams 09/22/24 09:28 Ordered - Procedures and Test Procedures and Tests throughout Hospitalization: Therapy Orders & Screens 09/17/24 20:07 EKG REPEAT IN AM Comment: 09/17/24 20:12 PT Eval & Treat (MD Order) ONCE Reason for Eval:: fall/transfer risk assessment Diagnosis: Dehydration OT Eval and Treat (MD Order) ONCE Comment: Physician Instructions: Reason For Exam: Diagnosis: Dehydration 09/17/24 20:39 Respiratory Therapy Assessment DAILY Comment: Diagnosis: Dehydration Discharge Exam General Appearance: no apparent distress Neurologic Exam: alert, oriented x 3, cooperative Eye Exam: PERRL Ears, Nose, Throat Exam: normal ENT inspection Neck Exam: normal inspection Respiratory Exam: normal breath sounds, lungs clear Cardiovascular Exam: regular rate/rhythm, normal heart sounds Gastrointestinal/Abdomen Exam: other (colostomy) Male Genitalia Exam: deferred Rectal Exam: deferred Back Exam: normal inspection Extremity Exam: paralysis Skin Exam: decubitus (coccyx), laceration (LLE) Wound Assessment: Skin/Wound Assessment Wound/Incision Assessment Start: 09/17/24 21:23 Text: Status: Active Freq: Q6H Protocol: Document 09/22/24 02:00 CW (Rec: 09/22/24 02:11 CW [id number]) Wound/Incision Assessment Coccyx Wound Assessment Shift Assessment Wound Type Pressure Ulcer Wound Stage Stage III Drainage Amount Minimal Drainage Description Serous Drainage Odor None/Absent General Appearance Open to air,Draining Wound Bed Greatest Portion Red (Granulation),Yellow ( Slough) Wound Bed Lesser Portion Red (Granulation),Pale [place] Surrounding Tissue [place] Comment ORDERED OINTMENT MIX APPLIED. Right Elbow Wound Assessment Shift Assessment Wound Type Skin Tear Wound Stage Non Pressure Wound Dressing Status Changed Drainage Amount None General Appearance Clean/Dry Wound Bed Greatest Portion Dusky Red Comment SCABBED OVER Left Lower Anterior Other Wound Assessment Shift Assessment Wound Type Laceration Wound Stage Non Pressure Wound Primary Dressing DAMARIS BOOT Comment DAMARIS BOOT CDI-NO SHADOWING NOTED Wound Photo Photo Taken No Final Diagnosis/Problem List - Final Discharge Diagnosis/Problem (1) GUERRERO (acute kidney injury) Current Visit: Yes Status: Acute Assessment & Plan: - Creat reviewed at 0.81- BL 0.77 -IVF discontinued -Continue to monitor renal/lytes -avoid nephrotoxic meds Code(s): N17.9 - ACUTE KIDNEY FAILURE, UNSPECIFIED (2) Fall Current Visit: Yes Status: Acute Assessment & Plan: - CXR: Portable chest demonstrates improving left base infiltrate/atelectasis/effusion with mild residual. Remaining heart and right lung unremarkable. Bony thorax intact again with osteopenia and mild degenerative changes. No new cardiopulmonary abnormalities. -Tib/Fib XR: 2View left lower leg demonstrates osteopenia, moderate ankle degenerative arthropathy, and anterior lower leg cutaneous arnold. No acute abnormalities. - Sacrum and coccyx XR: 3 view sacrum/coccyx demonstrates osteopenia, remote excision distal sacrum/coccyx, mild/moderate lower lumbar degenerative spondylosis, moderate degenerative changes both hips, remote left femur neck fracture, mild scattered vascular calcifications, and suprapubic catheter. No other bony, articular, or soft tissue abnormalities. -Patient to consider placement for rehab and abx -PT eval Code(s): W19.XXXA - UNSPECIFIED FALL, INITIAL ENCOUNTER (3) Hypokalemia Current Visit: Yes Status: Acute Assessment & Plan: - resolved - potassium at 3.5 -continue home potassium -continue to hold HCTZ -Tele -continue to trend renal/lytes daily Code(s): E87.6 - HYPOKALEMIA (4) Rhabdomyolysis Current Visit: Yes Status: Acute Assessment & Plan: -2/2 to fall at home -IVF discontinued -CK levels much improved - trend Code(s): M62.82 - RHABDOMYOLYSIS (5) Hx of traumatic brain injury Current Visit: Yes Status: Chronic Assessment & Plan: - noted adds to complexity Code(s): Z87.820 - PERSONAL HISTORY OF TRAUMATIC BRAIN INJURY (6) Laceration of lower leg Current Visit: No Status: Acute Assessment & Plan: - podiatry consult reviewed -Unna boot applied to the left lower extremity for localized edema and venous insufficiency. No further treatment recommended at this time- agree with plan Code(s): S81.819A - LACERATION WITHOUT FOREIGN BODY, UNSP LOWER LEG, INIT ENCNTR (7) Sacral decubitus ulcer, stage II Current Visit: No Status: Acute Assessment & Plan: - nursing to do dressing changes per PT orders Q 1-2 hours - Old records reviewed and continue antibiotics for wound culture results - Wound culture + for Providencia Stuarti and E-coli- antibiotic changed to Invanz - CBC reviewed - case management to arrange swing bed/SNF placement vs. OP/ IV antibiotics at infusion center if pt able to arrange transportation. Code(s): L89.152 - PRESSURE ULCER OF SACRAL REGION, STAGE 2 (8) UTI (urinary tract infection) Current Visit: No Status: Acute Assessment & Plan: - UC + e-coli- continue Invanz - CMP reviewed Code(s): N39.0 - URINARY TRACT INFECTION, SITE NOT SPECIFIED (9) GERD (gastroesophageal reflux disease) Current Visit: No Status: Chronic Qualifiers: Esophagitis presence: without esophagitis Qualified Code(s): K21.9 - Gastro-esophageal reflux disease without esophagitis Assessment & Plan: - Continue pepcid and protonix Code(s): K21.9 - GASTRO-ESOPHAGEAL REFLUX DISEASE WITHOUT ESOPHAGITIS (10) HTN (hypertension) Current Visit: No Status: Chronic Assessment & Plan: - BP stable - Continue home meds Code(s): I10 - ESSENTIAL (PRIMARY) HYPERTENSION (11) History of stroke Current Visit: No Status: Chronic Assessment & Plan: - Continue Eliquis Code(s): Z86.73 - PRSNL HX OF TIA (TIA), AND CEREB INFRC W/O RESID DEFICITS (12) Morbid obesity Current Visit: No Status: Chronic Assessment & Plan: - advised diet and exercise control Code(s): E66.01 - MORBID (SEVERE) OBESITY DUE TO EXCESS CALORIES (13) Paraplegic spinal paralysis Current Visit: No Status: Chronic Assessment & Plan: - at baseline - adds to complexity - [facility] Code(s): G82.20 - PARAPLEGIA, UNSPECIFIED (14) Constipation Current Visit: Yes Status: Acute Assessment & Plan: - Senokot, miralax Code(s): N17.9 - ACUTE KIDNEY FAILURE, UNSPECIFIED (2) Fall Current Visit: Yes Status: Acute Code(s): W19.XXXA - UNSPECIFIED FALL, INITIAL ENCOUNTER (3) Hypokalemia Current Visit: Yes Status: Acute Code(s): E87.6 - HYPOKALEMIA (4) Rhabdomyolysis Current Visit: Yes Status: Acute Code(s): M62.82 - RHABDOMYOLYSIS (5) Hx of traumatic brain injury Current Visit: Yes Status: Chronic Code(s): Z87.820 - PERSONAL HISTORY OF TRAUMATIC BRAIN INJURY (6) Laceration of lower leg Current Visit: No Status: Acute Code(s): S81.819A - LACERATION WITHOUT FOREIGN BODY, UNSP LOWER LEG, INIT ENCNTR (7) Sacral decubitus ulcer, stage II Current Visit: No Status: Acute Code(s): L89.152 - PRESSURE ULCER OF SACRAL REGION, STAGE 2 (8) UTI (urinary tract infection) Current Visit: No Status: Acute Code(s): N39.0 - URINARY TRACT INFECTION, SITE NOT SPECIFIED (9) GERD (gastroesophageal reflux disease) Current Visit: No Status: Chronic Code(s): K21.9 - GASTRO-ESOPHAGEAL REFLUX DISEASE WITHOUT ESOPHAGITIS (10) HTN (hypertension) Current Visit: No Status: Chronic Code(s): I10 - ESSENTIAL (PRIMARY) HYPERTENSION (11) History of stroke Current Visit: No Status: Chronic Code(s): Z86.73 - PRSNL HX OF TIA (TIA), AND CEREB INFRC W/O RESID DEFICITS (12) Morbid obesity Current Visit: No Status: Chronic Code(s): E66.01 - MORBID (SEVERE) OBESITY DUE TO EXCESS CALORIES (13) Paraplegic spinal paralysis Current Visit: No Status: Chronic Code(s): G82.20 - PARAPLEGIA, UNSPECIFIED (14) Constipation Current Visit: Yes Status: Acute Code(s): K59.00 - CONSTIPATION, UNSPECIFIED - Discharge Discharge Date: 09/22/24 Condition: Stable Prescriptions: New Ertapenem Sodium [Invanz ] 1 g IV Q24H Polyethylene Glycol 3350 17 gm [Miralax Powder 17GM PACKET] 17 gm PO DAILY pkt Ondansetron HCl 4 mg/2 ml [Zofran 4 MG/2 ML VIAL] 4 mg IV Q6H PRN PRN PRN Reason: Nausea/Vomiting Continue Potassium Chloride Tab* [Klor Con] 10 meq PO DAILY Albuterol 2.5 mg/3 ml Neb [Proventil 2.5 mg/3 ml Neb] 1 neb IH Q6HPRN PRN PRN Reason: Shortness Of Breath/Wheezing Baclofen 40 mg PO HS Cyclobenzaprine HCl 10 mg [Cyclobenzaprine 10 MG] 10 mg PO TIDPRN PRN PRN Reason: Muscle Spasms Famotidine 20 mg PO BID Folic Acid 1 mg PO DAILY Levothyroxine Sodium 25 mcg PO DAILY Lisinopril 20 mg [Zestril 20 MG] 20 mg PO DAILY Nystatin Powder 15 gm [Nystop Powder 15 gm] 1 applic TOP DAILY Pramipexole Di-HCl [Pramipexole Dihydrochloride] 1 mg PO DAILY Sertraline HCl 100 mg PO DAILY Acetaminophen 325 mg [Tylenol 325 mg] 650 mg PO Q6HPRN PRN PRN Reason: Pain PANTOPRAZOLE 40 mg Tablet [Protonix 40MG Tablet] 40 mg PO DAILY Cetirizine HCl [Allergy Relief] 10 mg PO DAILY Baclofen 20 mg PO BID Furosemide [Lasix] 20 mg PO TIDPRN Esomeprazole Magnesium 40 mg PO DAILY Duloxetine HCl 30 mg [Cymbalta 30 MG Capsule] 60 mg PO DAILY Apixaban [Eliquis 2.5 mg Tablet] 5 mg PO BID Nystatin Cream 30 gm [Nystop 30 gm Cream] 30 gm TP BID Discontinued Hydrochlorothiazide 25 mg [hydroDIURIL 25 MG] 25 mg PO DAILY Prednisone 20 mg [Deltasone 20 mg] 20 mg PO BID 5 Days #10 tablet Ciprofloxacin HCl [Cipro] 500 mg PO BID Linezolid 600 mg PO BID Additional Instructions: NEEDS INFO FOR UNNA BOOTS AND STAPLE/SUTURE REMOVAL CALL [facility] @ [phone] WHEN YOU GET HOME SO THEY CAN CONTINUE TO WORK ON YOUR POWERCHAIR Follow up with: TEN LEROY [Primary Care Provider] -
[2024-09-22 12:16] VITALS: BP 148/76; TEMP 97.3; O2SAT 93
== END 2024-09-22 16:00 | disposition swing bed (61) | DRG 981 ==
LOC: ED 14:53 → MED SURG 19:46 → OBSVTOIN 09-18 08:21
PROVIDERS: ADMIT Internal Medicine; ATTEND Internal Medicine
PROC: 0JDR0ZZ Extraction of Left Foot Subcutaneous Tissue and Fascia, Open Approach (ICD-10-PCS; 2024-09-18)
PROC: 2W1MX6Z Compression of Left Lower Extremity using Pressure Dressing (ICD-10-PCS; 2024-09-18)
PROC: 05HC33Z Insertion of Infusion Device into Left Basilic Vein, Percutaneous Approach (ICD-10-PCS; principal; 2024-09-22)
DX: N17.9 Acute kidney failure, unspecified (principal); K44.1 Diaphragmatic hernia with gangrene; L89.153 Pressure ulcer of sacral region, stage 3; G82.20 Paraplegia, unspecified; M62.82 Rhabdomyolysis; N39.0 Urinary tract infection, site not specified; W19.XXXA Unspecified fall, initial encounter; E87.6 Hypokalemia; S81.819A Laceration without foreign body, unspecified lower leg, initial encounter; L89.152 Pressure ulcer of sacral region, stage 2; B96.20 Unspecified Escherichia coli [E. coli] as the cause of diseases classified elsewhere; K21.9 Gastro-esophageal reflux disease without esophagitis; I11.0 Hypertensive heart disease with heart failure; I50.9 Heart failure, unspecified; Z86.73 Personal history of transient ischemic attack (TIA), and cerebral infarction without residual deficits; E66.01 Morbid (severe) obesity due to excess calories; S91.102A Unspecified open wound of left great toe without damage to nail, initial encounter; K59.00 Constipation, unspecified; S81.812A Laceration without foreign body, left lower leg, initial encounter; S92.911A Unspecified fracture of right toe(s), initial encounter for closed fracture; E78.5 Hyperlipidemia, unspecified; R60.0 Localized edema; Z79.01 Long term (current) use of anticoagulants; Z79.899 Other long term (current) drug therapy
CPT/HCPCS: 11042; 12001; 29580; 36410; 36415; 51702; 71045; 72220; 73590; 80048; 80053; 81001; 82274; 82550; 83735; 83880; 84134; 84484; 85025; 85027; 85610; 87040; 87070; 87077; 87086; 87186; 93005; 94640; 94760; 99222; 99285; G0378; J1335; J2020; J7609; Q3014; A9270-GY; G0328

== ENCOUNTER 2024-09-22 13:12 | Inpatient (IN) | payer MEDICARE ==
[2024-09-22] MEDS ORDERED: TYLENOL 325 MG PO PRN (17:12)
[2024-09-22] MEDS ORDERED: PROVENTIL 2.5 MG/3 ML NEB IH PRN (17:12)
[2024-09-22] MEDS ORDERED: Zofran 4 MG/2 ML VIAL IV PRN (17:12)
[2024-09-22] MEDS ORDERED: Cyclobenzaprine 10 MG PO PRN (17:12)
[2024-09-22] MEDS ORDERED: Aplisol ID ONE (20:26)
[2024-09-22] MEDS: Aplisol ID ONE (20:30)
[2024-09-22] MEDS: LIORESAL 10 MG PO SCH (22:33)
[2024-09-22] MEDS: Pepcid 20 MG PO SCH (22:33)
[2024-09-22] MEDS: ELIQUIS 2.5 MG TABLET PO SCH (22:34)
[2024-09-22] MEDS: NYSTOP 30 GM CREAM TP SCH (22:34)
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
[2024-09-23] MEDS: LIORESAL 10 MG PO SCH (06:47)
[2024-09-23 07:57] LABS: Absolute Neutrophil Ct (ANC) 5.52 x10^3/uL (1.78-5.38); BASOPHIL % 0.2 % (0.2-1.2); Basophil (Absolute #) 0.02 x10^3/uL (0.01-0.08); Eosinophil % 1.4 % (0.8-7.0); Eosinophil (Absolute #) 0.13 x10^3/uL (0.04-0.54); Hematocrit 29.1 % (40.1-51.0); Hemoglobin 9.4 g/dL (13.7-17.5); IMMATURE GRAN # 0.23 x10^3u/L (0.001-0.031); IMMATURE GRAN % 2.5 % (0.001-0.429); Lymphocyte (Absolute #) 2.11 x10^3/uL (1.32-3.57); Lymphocytes % 23.2 % (21.8-53.1); Mean Cell Volume 88.7 fL (79.0-92.2); Mean Corpuscular Hemoglobin 28.7 pg (25.7-32.2); Mean Corpuscular Hgb Concent. 32.3 g/dL (32.3-36.5); Mean Platelet Volume 9.7 fL (9.4-12.4); Monocyte (Absolute #) 1.09 x10^3/uL (0.30-0.82); NUCLEATED RBC # 0.02 x10^3u/L (0.00-0.012); NUCLEATED RBC % 0.2 % (0.00-0.2); Neutrophil % 60.7 % (34.0-67.9); Platelet Count 196 x10^3/uL (163-337); Red Blood Count 3.28 x10^6/uL (4.63-6.08); Red Cell Distribution Width 14.5 % (11.6-14.4); White Blood Count 9.1 x10^3/uL (4.23-9.07)
[2024-09-23 08:17] LABS: ANION GAP 12.9 MEQ/L (5-15); BILIRUBIN,TOTAL 0.3 mg/dL (0.2-1.3); Calcium 8.5 mg/dL (8.4-10.2); Creatinine 1 0.78 mg/dL (0.66-1.25); EST GLOMERULAR FILTRATION RATE 104.7 ML/MIN; Potassium 3.5 mmol/L (3.5-5.1); Total Protein 5.8 g/dL (6.3-8.2)
[2024-09-23] MEDS: Miralax Powder 17GM PACKET PO SCH (11:09)
[2024-09-23] MEDS: Acidophilus TABLET PO SCH (11:10)
[2024-09-23] MEDS: Klor Con PO SCH (11:10)
[2024-09-23] MEDS: SYNTHROID 25 MCG PO SCH (11:10)
[2024-09-23] MEDS: Cymbalta 30 MG Capsule PO SCH (11:11)
[2024-09-23] MEDS: ZOLOFT 50 MG TABLET PO SCH (11:11)
[2024-09-23] MEDS: Protonix 40MG Tablet PO SCH (11:11)
[2024-09-23] MEDS: SENOKOT 8.6 MG PO SCH (11:12)
[2024-09-23] MEDS: Zestril 20 MG PO SCH (11:12)
[2024-09-23] MEDS: FOLATE 1 MG PO SCH (11:12)
[2024-09-23] MEDS: Mirapex 0.5 MG Tablet PO SCH (11:12)
[2024-09-23] MEDS: Invanz *** 1 G in Sodium Chloride 100ML MINI-BAG PLUS 100 ML IV SCH (11:13)
[2024-09-23] MEDS: CLARITIN 10 MG PO SCH (11:13)
[2024-09-23] MEDS: NYSTOP POWDER 15 GM TOP SCH (11:14)
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
[2024-10-01 07:29] LABS: Hematocrit 33.7 % (40.1-51.0); Hemoglobin 9.9 g/dL (13.7-17.5); Mean Cell Volume 95.7 fL (79.0-92.2); Mean Corpuscular Hemoglobin 28.1 pg (25.7-32.2); Mean Corpuscular Hgb Concent. 29.4 g/dL (32.3-36.5); Mean Platelet Volume 10.3 fL (9.4-12.4); Platelet Count 164 x10^3/uL (163-337); Red Blood Count 3.52 x10^6/uL (4.63-6.08); Red Cell Distribution Width 15.1 % (11.6-14.4); White Blood Count 8.4 x10^3/uL (4.23-9.07)
[2024-10-01 07:53] LABS: BILIRUBIN,TOTAL 0.4 mg/dL (0.2-1.3); Calcium 8.4 mg/dL (8.4-10.2); Creatinine 1 0.59 mg/dL (0.66-1.25); EST GLOMERULAR FILTRATION RATE 113.9 ML/MIN; Potassium 3.3 mmol/L (3.5-5.1); Total Protein 5.6 g/dL (6.3-8.2)
[2024-10-01] MEDS: K-LYTE PO SCH (08:30)
[2024-10-01] MEDS ORDERED: Xylocaine-Mpf 2% 5 Ml Vial ONE (09:52)
--- NOTE | 2024-10-01 13:14 | PCM.NOTE ---
Date and Time: 10/01/24 1309 Subjective Assessment: 10/01/24 is a 54 year old male with a history of paraplegia, CHF, hyper lipidemia, hypertension, COPD and gastroesophageal reflux disease. He presented to the hospital on 09/17 after falling out of bed with a laceration to the anterior aspect of his left lower leg below the knee. The patient's home was, per paramedics, filthy with dirt and urine on the floor. Patient states he fell at 2:00 in the morning on day of admission and could not get himself up into bed. Patient has a permanent tracheostomy, permanent colostomy and a chronic coccygeal decubitus ulcer. He notes that he was recently issued a 10 day course prescription for 2 antibiotics to treat a UTI but he had only been able to take 1 of the 2 medications for the previous 1 & 1/2 days; he did not remember if it was his PCP or an ID doctor who wrote the prescription. The patient is a poor historian and is somewhat tangential in replies to questions. He reported a cough to the ED but no hemoptysis or chest pain. Podiatry consulted for wound of leg and toe. Wound culture of the coccyx with providencia Stuartii and ecoli. Ucult with Ecoli. Antibiotic changed to Ertapenem (Invanz) He has HHC with [facility] and pt is rather non-compliant. PT saw pt wound on coccyx and recs provided. He is in isolation for hx of MRSA. Patient to transition to swing bed for 10 days of Invanz on 09/23. He will need ID follow up as OP. Patient is doing well with no complaints. Plan for continued abx and wound care. Tomorrow will be his last day of antibiotic then will d/c. K+ 3.3 and replaced- will recheck later this afternoon. He has no further complaints at this time. - Review of Systems Constitutional: No Fever, No Chills Eyes: No Symptoms Ears, Nose, & Throat: No Symptoms Respiratory: No Cough, No Short Of Breath Cardiac: No Chest Pain, No Edema, No Syncope Abdominal/Gastrointestinal: No Abdominal Pain, No Nausea, No Vomiting, No Di arrhea Genitourinary Symptoms: No Dysuria Musculoskeletal: No Back Pain, No Neck Pain Skin: Other (wound to BLLE and coccyx), No Rash Neurological: No Dizziness, No Focal Weakness, No Sensory Changes Psychological: No Symptoms Endocrine: No Symptoms Hematologic/Lymphatic: No Symptoms Immunological/Allergic: No Symptoms Objective Exam General Appearance: no apparent distress, alert, obese Neurologic Exam: alert, oriented x 3, cooperative, normal mood/affect, nml cerebellar function, sensation nml, No motor deficits Skin Exam: normal color, warm, dry, other (wound to BLLE and coccyx) Wound Assessment: Skin/Wound Assessment Wound/Incision Assessment Start: 09/22/24 17:55 Text: Status: Active Freq: Q6H Protocol: Document 10/01/24 08:35 JV (Rec: 10/01/24 09:42 JV [id number]) Wound/Incision Assessment Coccyx Wound Assessment Shift Assessment Wound Type Pressure Ulcer Wound Stage Stage III General Appearance Open to air Comment zinc ointment, barrier cream & nystatin cream applied per order - remains true Wound Photo Photo Taken No Eye Exam: PERRL, EOMI, eyes nml inspection Ears, Nose, Throat Exam: normal ENT inspection, pharynx normal, moist mucous membranes Neck Exam: normal inspection, non-tender, supple, full range of motion Respiratory Exam: normal breath sounds, lungs clear, No respiratory distress Cardiovascular Exam: regular rate/rhythm, normal heart sounds Gastrointestinal/Abdomen Exam: soft, No tenderness, No mass Extremity Exam: normal inspection, normal range of motion Back Exam: normal inspection, normal range of motion, No CVA tenderness, No vertebral tenderness Male Genitalia Exam: deferred Rectal Exam: deferred Objective Data Vital Signs: Vital Signs - 24 hr Temp Pulse Resp BP Pulse Ox 10/01/24 07:31 97.7 F 82 16 135/80 96 10/01/24 07:03 85 16 96 09/30/24 20:41 95 09/30/24 20:00 98.1 F 76 20 135/81 98 Pain Assessment - Last Documented Pain Intensity 0 Intake and Output: Intake & Output 09/29/24 09/30/24 10/01/24 10/02/24 11:59 11:59 11:59 11:59 Intake Total 278 29 9006 Output Total 1750 1375 2800 Balance -504 -6983 -3360 Lab Results: Lab Results-Last 24 Hours 10/01/24 10/01/24 Range/Units 07:20 07:20 WBC 8.4 (4.23-9.07) x10^3/uL RBC 3.52 L (4.63-6.08) x10^6/uL Hgb 9.9 L (13.7-17.5) g/dL Hct 33.7 L (40.1-51.0) % MCV 95.7 H (79.0-92.2) fL MCH 28.1 (25.7-32.2) pg MCHC 29.4 L (32.3-36.5) g/dL RDW 15.1 H (11.6-14.4) % Plt Count 164 (163-337) x10^3/uL MPV 10.3 (9.4-12.4) fL Sodium 140 (135-145) mmol/L Potassium 3.3 L (3.5-5.1) mmol/L Chloride 104 (98-107) mmol/L Carbon Dioxide 25 (22-30) mmol/L Anion Gap 14.0 (5-15) MEQ/L BUN 11 (9-20) mg/dL Creatinine 0.59 L (0.66-1.25) mg/dL Estimated GFR 113.9 ML/MIN Glucose 128 H (74-106) mg/dL Calcium 8.4 (8.4-10.2) mg/dL Total Bilirubin 0.40 (0.2-1.3) mg/dL AST 20 (17-59) U/L ALT 20 (0-50) U/L Alkaline Phosphatase 121 (38-126) U/L Serum Total Protein 5.6 L (6.3-8.2) g/dL Albumin 3.0 L (3.5-5.0) g/dL Multi-Disciplinary Progress Notes: Multi-Disciplinary Progress Notes 10/01/24 11:24 Nutrition Note by Carol Ann Lara f/u note: HR diet and prostat con't with good po intake. Note pt to d/c tomorrow. Will con't to f/u prn. T.HEATHER Lara Initialized on 10/01/24 11:24 - END OF NOTE Assessment/Plan (1) Sacral decubitus ulcer, stage II Current Visit: No Status: Acute Assessment & Plan: - Nursing to do dressing changes per PT orders Q 1-2 hours - Old records reviewed and continue antibiotics for wound culture results - Wound culture + for Providencia Stuarti and E-coli- antibiotic Invanz - CBC reviewed - Swing bed for IV antibiotics to be completed tomorrow Code(s): L89.152 - PRESSURE ULCER OF SACRAL REGION, STAGE 2 (2) UTI (urinary tract infection) Current Visit: No Status: Acute Assessment & Plan: - UC + e-coli- continue Invanz - CMP reviewed Code(s): N39.0 - URINARY TRACT INFECTION, SITE NOT SPECIFIED (3) Hypokalemia Current Visit: No Status: Acute Assessment & Plan: - K+ 3.3 replaced- trend Code(s): E87.6 - HYPOKALEMIA (4) Fall Current Visit: No Status: Acute Assessment & Plan: - CXR: Portable chest demonstrates improving left base infiltrate/atelectasis/effusion with mild residual. Remaining heart and right lung unremarkable. Bony thorax intact again with osteopenia and mild degenerative changes. No new cardiopulmonary abnormalities. -Tib/Fib XR: 2View left lower leg demonstrates osteopenia, moderate ankle degenerative arthropathy, and anterior lower leg cutaneous arnold. No acute abnormalities. - Sacrum and coccyx XR: 3 view sacrum/coccyx demonstrates osteopenia, remote excision distal sacrum/coccyx, mild/moderate lower lumbar degenerative spondylosis, moderate degenerative changes both hips, remote left femur neck fracture, mild scattered vascular calcifications, and suprapubic catheter. No other bony, articular, or soft tissue abnormalities. -Continue swing bed with IPPT Code(s): W19.XXXA - UNSPECIFIED FALL, INITIAL ENCOUNTER (5) Laceration of lower leg Current Visit: No Status: Acute Assessment & Plan: - podiatry consult reviewed -Unna boot applied to the left lower extremity for localized edema and venous insufficiency. No further treatment recommended at this time- agree with plan - Podiatry re-evaluated 09/30- will need to f/u OP Code(s): S81.819A - LACERATION WITHOUT FOREIGN BODY, UNSP LOWER LEG, INIT ENCNTR (6) GERD (gastroesophageal reflux disease) Current Visit: No Status: Chronic Qualifiers: Assessment & Plan: - Continue pepcid and protonix Code(s): K21.9 - GASTRO-ESOPHAGEAL REFLUX DISEASE WITHOUT ESOPHAGITIS (7) HTN (hypertension) Current Visit: No Status: Chronic Assessment & Plan: - BP stable - Continue home meds Code(s): I10 - ESSENTIAL (PRIMARY) HYPERTENSION (8) History of stroke Current Visit: No Status: Chronic Assessment & Plan: - Continue Eliquis Code(s): Z86.73 - PRSNL HX OF TIA (TIA), AND CEREB INFRC W/O RESID DEFICITS (9) Hx of traumatic brain injury Current Visit: No Status: Chronic Assessment & Plan: - noted adds to complexity Code(s): Z87.820 - PERSONAL HISTORY OF TRAUMATIC BRAIN INJURY (10) Morbid obesity Current Visit: No Status: Chronic Assessment & Plan: - advised diet and exercise control Code(s): E66.01 - MORBID (SEVERE) OBESITY DUE TO EXCESS CALORIES (11) Paraplegic spinal paralysis Current Visit: No Status: Chronic Assessment & Plan: - at baseline - adds to complexity - [facility] Code(s): G82.20 - PARAPLEGIA, UNSPECIFIED (12) GUERRERO (acute kidney injury) Current Visit: No Status: Resolved Assessment & Plan: - resolved Code(s): N17.9 - ACUTE KIDNEY FAILURE, UNSPECIFIED (13) Constipation Current Visit: No Status: Resolved Assessment & Plan: -resolved - Senokot, miralax Code(s): K59.00 - CONSTIPATION, UNSPECIFIED (14) Rhabdomyolysis Current Visit: No Status: Resolved Assessment & Plan: - resolved VTE: Eliquis PPI: Protonix Next of KIN: Elda Ton [phone] D/C plan: tomorrow Code status: Full Code(s): M62.82 - RHABDOMYOLYSIS
[2024-10-01 14:20] LABS: MAGNESIUM 1.8 mg/dL (1.6-2.3)
[2024-10-02 05:42] LABS: Hematocrit 30.4 % (40.1-51.0); Hemoglobin 9.4 g/dL (13.7-17.5); Mean Cell Volume 88.6 fL (79.0-92.2); Mean Corpuscular Hemoglobin 27.4 pg (25.7-32.2); Mean Corpuscular Hgb Concent. 30.9 g/dL (32.3-36.5); Mean Platelet Volume 10.5 fL (9.4-12.4); Platelet Count 209 x10^3/uL (163-337); Red Blood Count 3.43 x10^6/uL (4.63-6.08); Red Cell Distribution Width 15.1 % (11.6-14.4); White Blood Count 8.3 x10^3/uL (4.23-9.07)
[2024-10-02 06:07] LABS: ALBUMIN 3.3 g/dL (3.5-5.0); ANION GAP 14.1 MEQ/L (5-15); BILIRUBIN,TOTAL 0.4 mg/dL (0.2-1.3); Calcium 8.5 mg/dL (8.4-10.2); Creatinine 1 0.54 mg/dL (0.66-1.25); Potassium 3.6 mmol/L (3.5-5.1); Total Protein 6.2 g/dL (6.3-8.2)
[2024-10-02] MEDS: Invanz *** 1 G in Sodium Chloride 100ML MINI-BAG PLUS 100 ML IV SCH (06:23)
[2024-10-02 07:36] VITALS: BP 145/95; TEMP 98.4; O2SAT 96
--- NOTE | 2024-10-02 07:38 | PCM.DS ---
Discharge Summary Date of Admission: 09/22/24 16:00 Date of Discharge: 10/02/24 Admitting Physician: RAUL TAY MD Primary Care Provider: TEN LEROY Allergies Allergies morphine Allergy (Mild, Verified 09/22/24 18:32) violent Penicillins Allergy (Unknown, Verified 09/22/24 18:32) unknown Latex, Natural Rubber Allergy (Verified 09/22/24 18:32) Rash cefepime Adverse Reaction (Intermediate, Verified 09/22/24 18:32) Swelling of Tongue and Lips Hospital Summary - Hospital Course Hospital Course: 10/01/24 is a 54 year old male with a history of paraplegia, CHF, hyperlipidemia, hypertension, COPD and gastroesophageal reflux disease. He presented to the hospital on 09/17 after falling out of bed with a laceration to the anterior aspect of his left lower leg below the knee. The patient's home was, per paramedics, filthy with dirt and urine on the floor. Patient states he fell at 2:00 in the morning on day of admission and could not get himself up into bed. Patient has a permanent tracheostomy, permanent colostomy and a chronic coccygeal decubitus ulcer. He notes that he was recently issued a 10 day course prescription for 2 antibiotics to treat a UTI but he had only been able to take 1 of the 2 medications for the previous 1 & 1/2 days; he did not remember if it was his PCP or an ID doctor who wrote the prescription. The patient is a poor historian and is somewhat tangential in replies to questions. He reported a cough to the ED but no hemoptysis or chest pain. Podiatry consulted for wound of leg and toe. Wound culture of the coccyx with providencia Stuartii and ecoli. Ucult with Ecoli. Antibiotic changed to Ertapenem (Invanz) He has HHC with [facility] and pt is rather non-compliant. PT saw pt wound on coccyx and recs provided. He is in isolation for hx of MRSA. Patient to transition to swing bed for 10 days of Invanz on 09/23. He will need ID follow up as OP. Patient is doing well with no complaints. Plan for continued abx and wound care. Tomorrow will be his last day of antibiotic then will d/c. K+ 3.3 and replaced- will recheck later this afternoon. He has no further complaints at this time. 10/02/24 Pt resting in bed. He is to received the last dose of IV antibiotic today and then can d/c home with [facility]. Pt will need [facility] home health services to aide in wound healing and health maintenance.Will d/c with nystatin cream used on wound. He denies any further concerns at this time and is ready to d/c today. - Vitals & Intake/Output Vital Signs: Vital Signs Temperature 97.8 F 10/01/24 21:52 Pulse Rate 82 10/01/24 21:52 Respiratory Rate 20 10/01/24 21:52 Blood Pressure 142/91 10/01/24 21:52 O2 Sat by Pulse Oximetry 95 10/01/24 21:52 Intake & Output: Intake & Output 09/29/24 09/30/24 10/01/24 10/02/24 11:59 11:59 11:59 11:59 Intake Total 178 81 2641 1200 Output Total 1750 1375 2800 2650 Balance -990 -1287 -1410 -1450 - Lab Result Diagrams: 10/02/24 05:34 10/02/24 05:34 Lab Results-Last 24 Hrs: Lab Results-Last 24 Hours 10/01/24 10/01/24 10/02/24 Range/Units 07:20 13:56 05:34 WBC 8.3 (4.23-9.07) x10^3/uL RBC 3.43 L (4.63-6.08) x10^6/uL Hgb 9.4 L (13.7-17.5) g/dL Hct 30.4 L (40.1-51.0) % MCV 88.6 D (79.0-92.2) fL MCH 27.4 (25.7-32.2) pg MCHC 30.9 L (32.3-36.5) g/dL RDW 15.1 H (11.6-14.4) % Plt Count 209 (163-337) x10^3/uL MPV 10.5 (9.4-12.4) fL Sodium 140 (135-145) mmol/L Potassium 3.3 L 4.0 D (3.5-5.1) mmol/L Chloride 104 (98-107) mmol/L Carbon Dioxide 25 (22-30) mmol/L Anion Gap 14.0 (5-15) MEQ/L BUN 11 (9-20) mg/dL Creatinine 0.59 L (0.66-1.25) mg/dL Estimated GFR 113.9 ML/MIN Glucose 128 H (74-106) mg/dL Calcium 8.4 (8.4-10.2) mg/dL Magnesium 1.8 (1.6-2.3) mg/dL Total Bilirubin 0.40 (0.2-1.3) mg/dL AST 20 (17-59) U/L ALT 20 (0-50) U/L Alkaline Phosphatase 121 (38-126) U/L Serum Total Protein 5.6 L (6.3-8.2) g/dL Albumin 3.0 L (3.5-5.0) g/dL 10/02/24 Range/Units 05:34 WBC (4.23-9.07) x10^3/uL RBC (4.63-6.08) x10^6/uL Hgb (13.7-17.5) g/dL Hct (40.1-51.0) % MCV (79.0-92.2) fL MCH (25.7-32.2) pg MCHC (32.3-36.5) g/dL RDW (11.6-14.4) % Plt Count (163-337) x10^3/uL MPV (9.4-12.4) fL Sodium 141 (135-145) mmol/L Potassium 3.6 (3.5-5.1) mmol/L Chloride 104 (98-107) mmol/L Carbon Dioxide 26 (22-30) mmol/L Anion Gap 14.1 (5-15) MEQ/L BUN 12 (9-20) mg/dL Creatinine 0.54 L (0.66-1.25) mg/dL Estimated GFR 117.0 ML/MIN Glucose 122 H (74-106) mg/dL Calcium 8.5 (8.4-10.2) mg/dL Magnesium (1.6-2.3) mg/dL Total Bilirubin 0.40 (0.2-1.3) mg/dL AST 20 (17-59) U/L ALT 21 (0-50) U/L Alkaline Phosphatase 128 H (38-126) U/L Serum Total Protein 6.2 L (6.3-8.2) g/dL Albumin 3.3 L (3.5-5.0) g/dL - Procedures and Test Procedures and Tests throughout Hospitalization: Therapy Orders & Screens 09/22/24 17:12 OT Eval and Treat ( Order) ONCE Comment: Physician Instructions: Reason For Exam: Diagnosis: Dehydration 09/23/24 07:00 Respiratory Therapy Assessment DAILY Comment: Diagnosis: COCCYX WOUND AND UTI REQUIRING IV ANTIBIOTICS Discharge Exam General Appearance: no apparent distress, alert Neurologic Exam: alert, oriented x 3, cooperative, normal mood/affect, nml cerebellar function, sensation nml, No motor deficits Eye Exam: PERRL, EOMI, eyes nml inspection Ears, Nose, Throat Exam: normal ENT inspection, pharynx normal, moist mucous membranes Neck Exam: normal inspection, non-tender, supple, full range of motion Respiratory Exam: normal breath sounds, lungs clear, No respiratory distress Cardiovascular Exam: regular rate/rhythm, normal heart sounds Gastrointestinal/Abdomen Exam: soft, No tenderness, No mass Male Genitalia Exam: deferred Rectal Exam: deferred Back Exam: normal inspection, normal range of motion, No CVA tenderness, No vertebral tenderness Extremity Exam: normal inspection, normal range of motion Skin Exam: normal color, warm, dry, other (wound coccyx and BLLE) Wound Assessment: Skin/Wound Assessment Wound/Incision Assessment Start: 09/22/24 17:55 Text: Status: Active Freq: Q6H Protocol: Document 10/02/24 02:00 MP (Rec: 10/02/24 03:19 MP [id number]) Wound/Incision Assessment Coccyx Wound Assessment Shift Assessment Wound Type Pressure Ulcer Wound Stage Stage III General Appearance Open to air Comment zinc ointment, barrier cream & nystatin cream applied per order - remains true Wound Photo Photo Taken No Final Diagnosis/Problem List - Final Discharge Diagnosis/Problem (1) Sacral decubitus ulcer, stage II Current Visit: No Status: Acute Code(s): L89.152 - PRESSURE ULCER OF SACRAL REGION, STAGE 2 (2) UTI (urinary tract infection) Current Visit: No Status: Acute Code(s): N39.0 - URINARY TRACT INFECTION, SITE NOT SPECIFIED (3) Hypokalemia Current Visit: No Status: Acute Code(s): E87.6 - HYPOKALEMIA (4) Fall Current Visit: No Status: Acute Code(s): W19.XXXA - UNSPECIFIED FALL, INITIAL ENCOUNTER (5) Laceration of lower leg Current Visit: No Status: Acute Code(s): S81.819A - LACERATION WITHOUT FOREIGN BODY, UNSP LOWER LEG, INIT ENCNTR (6) GERD (gastroesophageal reflux disease) Current Visit: No Status: Chronic Code(s): K21.9 - GASTRO-ESOPHAGEAL REFLUX DISEASE WITHOUT ESOPHAGITIS (7) HTN (hypertension) Current Visit: No Status: Chronic Code(s): I10 - ESSENTIAL (PRIMARY) HYPERTENSION (8) History of stroke Current Visit: No Status: Chronic Code(s): Z86.73 - PRSNL HX OF TIA (TIA), AND CEREB INFRC W/O RESID DEFICITS (9) Hx of traumatic brain injury Current Visit: No Status: Chronic Code(s): Z87.820 - PERSONAL HISTORY OF TRAUMATIC BRAIN INJURY (10) Morbid obesity Current Visit: No Status: Chronic Code(s): E66.01 - MORBID (SEVERE) OBESITY DUE TO EXCESS CALORIES (11) Paraplegic spinal paralysis Current Visit: No Status: Chronic Code(s): G82.20 - PARAPLEGIA, UNSPECIFIED (12) GUERRERO (acute kidney injury) Current Visit: No Status: Resolved Code(s): N17.9 - ACUTE KIDNEY FAILURE, UNSPECIFIED (13) Constipation Current Visit: No Status: Resolved Code(s): K59.00 - CONSTIPATION, UNSPECIFIED (14) Rhabdomyolysis Current Visit: No Status: Resolved Assessment & Plan: (1) Sacral decubitus ulcer, stage II Current Visit: No Status: Acute Assessment & Plan: - Nursing to do dressing changes per PT orders Q 1-2 hours - Old records reviewed and continue antibiotics for wound culture results - Wound culture + for Providencia Stuarti and E-coli- antibiotic Invanz - CBC reviewed - Swing bed for IV antibiotics to be completed tomorrow 10/02 - IV antibiotics completed - F/U OP with providers for continued care - F/U with [facility] Code(s): L89.152 - PRESSURE ULCER OF SACRAL REGION, STAGE 2 (2) UTI (urinary tract infection) Current Visit: No Status: Acute Assessment & Plan: - UC + e-coli- continue Invanz - CMP reviewed Code(s): N39.0 - URINARY TRACT INFECTION, SITE NOT SPECIFIED (3) Hypokalemia Current Visit: No Status: Acute Assessment & Plan: - K+ 3.3 replaced- trend 10/02 - resolved Code(s): E87.6 - HYPOKALEMIA (4) Fall Current Visit: No Status: Acute Assessment & Plan: - CXR: Portable chest demonstrates improving left base infiltrate/atelectasis/effusion with mild residual. Remaining heart and right lung unremarkable. Bony thorax intact again with osteopenia and mild degenerative changes. No new cardiopulmonary abnormalities. -Tib/Fib XR: 2View left lower leg demonstrates osteopenia, moderate ankle degenerative arthropathy, and anterior lower leg cutaneous arnold. No acute abnormalities. - Sacrum and coccyx XR: 3 view sacrum/coccyx demonstrates osteopenia, remote excision distal sacrum/coccyx, mild/moderate lower lumbar degenerative spondylosis, moderate degenerative changes both hips, remote left femur neck fracture, mild scattered vascular calcifications, and suprapubic catheter. No other bony, articular, or soft tissue abnormalities. -Continue swing bed with IPPT Code(s): W19.XXXA - UNSPECIFIED FALL, INITIAL ENCOUNTER (5) Laceration of lower leg Current Visit: No Status: Acute Assessment & Plan: - podiatry consult reviewed -Unna boot applied to the left lower extremity for localized edema and venous insufficiency. No further treatment recommended at this time- agree with plan - Podiatry re-evaluated 09/30- will need to f/u OP Code(s): S81.819A - LACERATION WITHOUT FOREIGN BODY, UNSP LOWER LEG, INIT ENCNTR (6) GERD (gastroesophageal reflux disease) Current Visit: No Status: Chronic Qualifiers: Assessment & Plan: - Continue pepcid and protonix Code(s): K21.9 - GASTRO-ESOPHAGEAL REFLUX DISEASE WITHOUT ESOPHAGITIS (7) HTN (hypertension) Current Visit: No Status: Chronic Assessment & Plan: - BP stable - Continue home meds Code(s): I10 - ESSENTIAL (PRIMARY) HYPERTENSION (8) History of stroke Current Visit: No Status: Chronic Assessment & Plan: - Continue Eliquis Code(s): Z86.73 - PRSNL HX OF TIA (TIA), AND CEREB INFRC W/O RESID DEFICITS (9) Hx of traumatic brain injury Current Visit: No Status: Chronic Assessment & Plan: - noted adds to complexity Code(s): Z87.820 - PERSONAL HISTORY OF TRAUMATIC BRAIN INJURY (10) Morbid obesity Current Visit: No Status: Chronic Assessment & Plan: - advised diet and exercise control Code(s): E66.01 - MORBID (SEVERE) OBESITY DUE TO EXCESS CALORIES (11) Paraplegic spinal paralysis Current Visit: No Status: Chronic Assessment & Plan: - at baseline - adds to complexity - [facility] Code(s): G82.20 - PARAPLEGIA, UNSPECIFIED (12) GUERRERO (acute kidney injury) Current Visit: No Status: Resolved Assessment & Plan: - resolved Code(s): N17.9 - ACUTE KIDNEY FAILURE, UNSPECIFIED (13) Constipation Current Visit: No Status: Resolved Assessment & Plan: -resolved - Senokot, miralax Code(s): K59.00 - CONSTIPATION, UNSPECIFIED (14) Rhabdomyolysis Current Visit: No Status: Resolved Assessment & Plan: - resolved Code(s): M62.82 - RHABDOMYOLYSIS - Discharge Discharge Date: 10/02/24 Disposition: HOME HEALTH SERVICE Condition: Stable Prescriptions: Continue Potassium Chloride Tab* [Klor Con] 10 meq PO DAILY Albuterol 2.5 mg/3 ml Neb [Proventil 2.5 mg/3 ml Neb] 1 neb IH Q6HPRN PRN PRN Reason: Shortness Of Breath/Wheezing Baclofen 40 mg PO HS Cyclobenzaprine HCl 10 mg [Cyclobenzaprine 10 MG] 10 mg PO TIDPRN PRN PRN Reason: Muscle Spasms Famotidine 20 mg PO BID Folic Acid 1 mg PO DAILY Levothyroxine Sodium 25 mcg PO DAILY Lisinopril 20 mg [Zestril 20 MG] 20 mg PO DAILY Nystatin Powder 15 gm [Nystop Powder 15 gm] 1 applic TOP DAILY Pramipexole Di-HCl [Pramipexole Dihydrochloride] 1 mg PO DAILY Sertraline HCl 100 mg PO DAILY Acetaminophen 325 mg [Tylenol 325 mg] 650 mg PO Q6HPRN PRN PRN Reason: Pain PANTOPRAZOLE 40 mg Tablet [Protonix 40MG Tablet] 40 mg PO DAILY Cetirizine HCl [Allergy Relief] 10 mg PO DAILY Baclofen 20 mg PO BID Furosemide [Lasix] 20 mg PO TIDPRN Esomeprazole Magnesium 40 mg PO DAILY Duloxetine HCl 30 mg [Cymbalta 30 MG Capsule] 60 mg PO DAILY Apixaban [Eliquis 2.5 mg Tablet] 5 mg PO BID Ertapenem Sodium [Invanz ] 1 g IV Q24H Polyethylene Glycol 3350 17 gm [Miralax Powder 17GM PACKET] 17 gm PO DAILY pkt Ondansetron HCl 4 mg/2 ml [Zofran 4 MG/2 ML VIAL] 4 mg IV Q6H PRN PRN PRN Reason: Nausea/Vomiting Nystatin Cream 30 gm [Nystop 30 gm Cream] 30 gm TP BID 30 Days #2 tu Additional Instructions: Pt needs dressing changes TO LEFT LEG by C 2 times a week. ( LAST DONE 09/30/24) Apply iodine to incisions. Apply adaptic (non-adherent dressings) and sterile 4x4 gauze over wounds. Apply unna boot, fan-folded, to level of tibial tuberosity. Wrap with kerlix to same level. Wrap with coban with moderate (50%) compression to same level PATIENT TO HAVE COMBINATION OF NYSTATIN CREAM, ZINC OXIDE CREAM AND BARRIER CREAM APPLIED TO SACRAL WOUND AT LEAST TWICE A DAY. TURN Patient every 1-2 hours. FOLLOW UP IN OFFICE SCHEDULED FOR STAPLE/SUTURE REMOVAL CALL [facility] @ [phone] WHEN YOU GET HOME SO THEY CAN CONTINUE TO WORK ON YOUR POWERCHAIR Follow up with: JOSE VERDUGO DPM [ACTIVE STAFF] - 10/09/24 9:00 am ESAU YANG [NON-STAFF PHY W/O PRIVILEGES] - 10/08/24 1:00 pm GUANAKO ROUSE MD [ACTIVE STAFF] - 10/06/24 1:00 pm
[2024-10-02 07:43] VITALS: PULSE 76; RESP 16
== END 2024-10-02 10:12 | disposition home health service (06) | DRG 593 ==
LOC: MED SURG 16:00
PROVIDERS: ADMIT Internal Medicine; ATTEND Internal Medicine
PROC: 2W1MX6Z Compression of Left Lower Extremity using Pressure Dressing (ICD-10-PCS; principal; 2024-09-30)
DX: L89.152 Pressure ulcer of sacral region, stage 2 (principal); G82.20 Paraplegia, unspecified; Z59.19 Other inadequate housing; N39.0 Urinary tract infection, site not specified; N17.9 Acute kidney failure, unspecified; M62.82 Rhabdomyolysis; B96.20 Unspecified Escherichia coli [E. coli] as the cause of diseases classified elsewhere; E87.6 Hypokalemia; W19.XXXA Unspecified fall, initial encounter; S81.812A Laceration without foreign body, left lower leg, initial encounter; K21.9 Gastro-esophageal reflux disease without esophagitis; Z87.820 Personal history of traumatic brain injury; E66.01 Morbid (severe) obesity due to excess calories; K59.00 Constipation, unspecified; Z79.01 Long term (current) use of anticoagulants; Z79.899 Other long term (current) drug therapy; I11.0 Hypertensive heart disease with heart failure; I50.9 Heart failure, unspecified; J44.9 Chronic obstructive pulmonary disease, unspecified; E78.5 Hyperlipidemia, unspecified
CPT/HCPCS: 29580; 36415; 80053; 83735; 84132; 85025; 85027; 94760; 99305; J1335; Q3014; A9270-GY

== ENCOUNTER 2024-11-25 21:36 | Emergency (ER) | payer MEDICARE ==
[2024-11-25 21:44] VITALS: TEMP 98.6
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
[2024-11-25] MEDS ORDERED: TORAdol 30 mg Injection ONE (22:11)
[2024-11-25] MEDS ORDERED: Compazine 10 MG/2 ML ONE (22:11)
[2024-11-25] MEDS ORDERED: Sodium Chloride 0.9% 1000 ML 1,000 ML ONE (22:11)
[2024-11-25] MEDS: TORAdol 30 mg Injection IV ONE (22:14)
[2024-11-25] MEDS: Sodium Chloride 0.9% 1000 ML 1,000 ML IV SCH (22:14)
[2024-11-25] MEDS: Compazine 10 MG/2 ML IV ONE (22:14)
--- NOTE | 2024-11-25 23:40 | XRAY ---
CLINICAL HISTORY: headache COMPARISON: 09:07:29 [employer]: Multiple axial images are obtained from the skull base to the vertex without contrast. CT scan was performed according to ALARA (as low as reasonable achievable). FINDINGS: The brain shows normal morphology, attenuation, and volume for age. No evidence of space occupying lesion, hemorrhage, edema, mass effect, midline shift, extra axial collection, or hydrocephalus is noted. Ventricles, sulci, and basal cisterns are symmetric and normal in size and configuration. The alfaro-white matter differentiation is preserved. Visualized paranasal sinuses and mastoid air cells are well aerated. Orbital contents are within normal limits. Bony structures are intact. IMPRESSION: 1. No evidence of acute intracranial abnormality is demonstrated No significant abnormality since prior study. Electronically Signed by: Marco Antonio Valdivia MD. (11/25/2024 23:35:44 EDT)
[2024-11-25 23:50] VITALS: O2SAT 97
[2024-11-26 01:06] VITALS: BP 144/75; PULSE 60; RESP 12
== END 2024-11-26 01:47 | disposition home or self-care (01) ==
LOC: ED 21:36
DX: R51.9 Headache, unspecified (principal); Z79.01 Long term (current) use of anticoagulants; Z79.899 Other long term (current) drug therapy; Z72.0 Tobacco use
CPT/HCPCS: 70450; 96361; 96374; 96375; 99284; J1885